=== PATIENT | male | born 1930 | race Caucasian/White ===

== ENCOUNTER → 2018-06-29 | Outpatient (CLI) | payer MEDICARE ==
[2018-06-29 13:02] LABS: HCT 39.5 % (39.0-53.0); HGB 13.1 gm/dL (13.0-17.5); MCH 28.6 pg (25.0-35.0); MCHC 33.2 g/dL (31.0-37.0); MCV 86.3 fL (80.0-100.0); Mean Platelet Volume 7.8; Platelet Count 169 k/uL (150-450); RBC 4.58 m/uL (4.30-5.90); RDW 13.3 % (11.5-15.5); WBC 7.1 k/uL (3.8-10.6)
[2018-06-29 13:37] LABS: Potassium 4.3 mmol/L (3.5-5.1)
== END | disposition home or self-care (01) ==
LOC: LABPAT 12:44
PROVIDERS: ATTEND Internal Medicine Interventional Cardiology
DX: Z01.812 Encounter for preprocedural laboratory examination (principal)
CPT/HCPCS: 36415; 80051; 82565; 84520; 85027

== ENCOUNTER 2018-07-11 07:26 | Day surgery (SDC) | payer MEDICARE ==
[~2018-07-11 07:26] MED LIST: ALPRAZolam 0.25 MG TAB PO PRN; ALPRAZolam 0.5 MG TAB PO PRN; ASPIRIN 325 MG TAB PO ONE; ATORVASTATIN 80 MG TAB PO ONE; NITROGLYCERIN SL TABS 0.4 MG TAB SUBLINGUAL PRN; SODIUM CHLORIDE 0.9% 1,000 ML in EMPTY BAG 1 BAG IV ONE
[2018-07-11 08:04] VITALS: TEMP 97.5
[2018-07-11] MEDS ORDERED: fentaNYL (PF) 50 MCG/ML 2 ML AMP ONE (08:25)
[2018-07-11] MEDS ORDERED: MIDAZOLAM 2 MG/2 ML VIAL ONE (08:25)
[2018-07-11] MEDS ORDERED: BENZOCAINE SPRAY 1 CAN MUCOUS MEM ONE ×2 (08:35→08:37)
[2018-07-11] MEDS ORDERED: MIDAZOLAM 2 MG/2 ML VIAL IVP ONE ×2 (08:40→08:42)
[2018-07-11] MEDS ORDERED: fentaNYL (PF) 50 MCG/ML 2 ML AMP IVP ONE (08:41)
[2018-07-11 08:43] VITALS: RESP 18
[2018-07-11] MEDS ORDERED: LIDOCAINE 1% INJ 10MG/ML (20 ML MDV) ONE (09:09)
[2018-07-11] MEDS ORDERED: LIDOCAINE 1% INJ 10MG/ML (20 ML MDV) SQ ONE (09:25)
--- NOTE | 2018-07-11 09:27 | ECHOT ---
TRANSESOPHAGEAL ECHOCARDIOGRAM DATE OF SERVICE: July 11, 2018 PERFORMING PHYSICIAN: Slim Copeland MD, tire builder. PROCEDURE PERFORMED: Transesophageal echocardiogram. INDICATION: This is a pleasant 88-year-old gentleman who was diagnosed with severe aortic stenosis. The transesophageal echocardiogram is for more clarification of the severity of the aortic stenosis as well as aortic regurgitation. COMPLICATION: None. LEVEL OF SEDATION: Moderate with sedation length of 10 minutes. PROCEDURE DESCRIPTION: After obtaining an informed consent, explaining the procedure, benefits, risks, complications and alternatives, the patient was brought to the transesophageal echocardiogram suite. A pulse oximetry and heart rate monitors were attached to the patient prior to the procedure. The patient's throat was sprayed using lidocaine locally. Following that, the patient was turned into left lateral position. A bite guard was placed and the patient was then sedated with the above doses of Versed and fentanyl in divided doses. Following that, the transesophageal echocardiogram probe was advanced through the bite guard into the mid esophagus where 2-D echocardiogram images as well as color Doppler images of various cardiac structures were obtained. We evaluated the interatrial septum using 2-D echocardiogram, color Doppler, and contrast study. The procedure was completed. There were no complications. FINDINGS: The left ventricular dimension and systolic function appeared to be within normal limits. The ejection fraction appeared to be in the range of 55% to 60% with mild to moderate concentric LVH. The right ventricle appeared to be of normal size and function. The left atrium and right atrium are moderately dilated. The aortic valve is trileaflet valve and appeared to be very thickened and calcified with evidence of severe aortic sclerosis as well as severe aortic stenosis with an aortic valve area by planimetry of 0.7 centimeters square as well as mean gradient of 40 mmHg. The peak gradient was 56 mmHg. The gradients were obtained transgastric. The mitral valve appeared to be also thickened and calcified with evidence of moderate mitral insufficiency. There was mild tricuspid regurgitation seen. Mild pulmonic insufficiency seen as well. The interatrial septum appeared to be intact without any evidence of shunt. The left atrial appendage appeared to be without any evidence of thrombus as well. CONCLUSION: 1. Trileaflet aortic valve with evidence of severe aortic sclerosis as well as severe aortic stenosis and moderate to severe aortic insufficiency. The aortic stenosis severity was confirmed by planimetry as well as by gradient. The mean gradient across the aortic valve was 40 mmHg. 2. Thickened mitral valve leaflets with evidence of moderate mitral insufficiency. The mitral regurgitation jet is quite central. 3. Normal left ventricular dimension and systolic function with an ejection fraction of 55%. There was mild concentric left ventricular hypertrophy. 4. Normal right ventricular dimension and systolic function as well. 5. Moderate biatrial enlargement. 6. Normal tricuspid valve and pulmonic valve. 7. Intact interatrial septum without any evidence of shunt. 8. Normal left atrial appendage without any evidence of thrombus. 9. No evidence of pericardial effusion. MMODL / IJN: [id number] /
[2018-07-11] MEDS ORDERED: IOPAMIDOL-370 125ML BTL INJ ONE (09:52)
[2018-07-11] MEDS ORDERED: RX INFO: IV CONTRAST WAS GIVEN 1 EACH MISC MISCELLANE PRN (10:06)
[2018-07-11] MEDS ORDERED: SODIUM CHLORIDE 0.9% 1,000 ML IV SCH (10:15)
--- NOTE | 2018-07-11 10:48 | CC ---
CARDIAC CATHETERIZATION REPORT DATE OF SERVICE: 07/11/2018 PERFORMING PHYSICIAN: Slim Copeland MD, [employer]. PROCEDURE PERFORMED: 1. Right heart catheterization. 2. Selective right and left coronary angiogram. INDICATION: This is a pleasant 88-year-old gentleman with known history of aortic stenosis, who was experiencing recently symptoms of feeling tired and fatigued as well as shortness of breath with exertion. He underwent a transthoracic echocardiogram and that showed evidence of severe aortic stenosis. The ROMAN earlier today revealed severe aortic stenosis. He was brought today to undergo right and left heart catheterization. COMPLICATION: None. LEVEL OF SEDATION: Moderate with sedation length of 37 minutes. APPROACH: Right common femoral vein and right common femoral artery. PROCEDURE DESCRIPTION: After obtaining an informed consent, the patient was brought to the cardiac labor relations teacher. The right common femoral vein was cannulated using micropuncture technique, the micropuncture wire passed easily, then I placed an 8-[place] sheath in the femoral vein. After that, the right common femoral artery was cannulated using micropuncture technique, the micropuncture wire passed easily, then I placed a 6-[place] sheath in the right common femoral artery. After that, I did a right heart catheterization using 6- [place] Arabian swan catheter which was advanced all the way to the wedge position, then I did a pullback across the right heart chambers. I did a cardiac output using thermodilution as well. I did not cross the aortic valve just because of the heavily calcified aortic valve as well as known severe aortic stenosis by gradient as well as by area. After that, I did selective right and left coronary angiogram using JR4 and JL4 catheters. The procedure was completed without any complication. HEMODYNAMICS: 1. The pulmonary capillary wedge pressure was 22 mmHg. 2. Pulmonary artery pressures were as follows: systolic 23, diastolic 16 and mean of 19 mmHg. 3. Right ventricular pressure is as follows: systolic 24 and end-diastolic of 9 mmHg. 4. The aortic pressures were as follows systolic 138, diastolic 54, and mean of 81 mmHg. The cardiac output was 4.9 L/minute. SELECTIVE CORONARY ANGIOGRAM: 1. The right coronary artery is a small to medium caliber vessel. It is a nondominant vessel. It is seems to be angiographically normal. 2. The left main is a large left main and seems to be angiographically normal. It bifurcates into left circumflex and left anterior descending artery. 3. The left circumflex is a large caliber vessel. It is a dominant vessel. The proximal circumflex appeared to have mild disease only. The mid circumflex appears to have mild disease only and gives rise into a large OM branch which seems to be angiographically normal. The left circumflex distally bifurcates into PDA and PLV branches both are angiographically normal. 4. The LAD, the proximal LAD appeared to be angiographically normal. It gives rise into the first and second diagonal branch, both are angiographically normal. The mid LAD is normal as well and gives rise into a third diagonal branch which seems to be angiographically normal and the LAD distally is angiographically normal. The LAD does reach and wrap around the apex. CONCLUSION: 1. Normal right heart pressures. 2. Normal cardiac output. 3. Mild nonobstructive coronary artery disease. 4. Dominant left coronary system. POST-PROCEDURE MANAGEMENT: Evaluate the patient to have aortic valve replacement either through SAVR or TAVR. PANCHO / CURTISN: [id number] /
--- NOTE | 2018-07-11 10:48 | LTR ---
DATE OF SERVICE: 07/11/2018 RE: Albaro Hall Dear Dr. Julien; Mr. Albaro Hall underwent today a transesophageal echocardiogram as well as right and left heart catheterization for further evaluation of aortic stenosis. The transesophageal echocardiogram revealed severe aortic stenosis by area as well as by gradient. The heart catheterization revealed mild nonobstructive coronary artery disease. Having stated that, I am going to discharge the patient home and follow up with him in the office next week to discuss with him the aortic valve replacement either surgically or percutaneously. Again, thank you for allowing me to participate in his care and please do not hesitate to call if you have any question or concern. Sincerely, Slim Copeland MD MMRODNEYL / CURTISN: [id number] /
[2018-07-11 10:49] VITALS: BMI 24.6
[2018-07-11 13:24] VITALS: BP 151/65; PULSE 52
== END 2018-07-11 15:55 | disposition home or self-care (01) ==
LOC: CATHCVL 07:26 → 3OBS 08:57 → CATHCVL 15:55
PROVIDERS: ATTEND Internal Medicine Interventional Cardiology
DX: I08.3 Combined rheumatic disorders of mitral, aortic and tricuspid valves (principal); I25.10 Atherosclerotic heart disease of native coronary artery without angina pectoris; Z87.891 Personal history of nicotine dependence; Z79.82 Long term (current) use of aspirin; Z79.899 Other long term (current) drug therapy
CPT/HCPCS: 93312; 93320; 93325; 93456; C1769 ×4; C1894 ×2; C1760; J2250; J2001; Q9967

== ENCOUNTER 2018-10-24 09:19 | Emergency (ER) | payer MEDICARE ==
[2018-10-24 09:26] VITALS: RESP 18; TEMP 97.4
[2018-10-24] MEDS ORDERED: fentaNYL (PF) 50 MCG/ML 2 ML AMP IV STA (09:41)
--- NOTE | 2018-10-24 10:17 | ED ---
General Adult HPI <Jake Miller - Last Filed: 10/24/18 11:22> - General Source: patient, RN notes reviewed Mode of arrival: EMS Limitations: no limitations <Gasper Miranda - Last Filed: 10/24/18 11:32> - General Chief complaint: Fall Stated complaint: fall Time Seen by Provider: 10/24/18 09:29 - History of Present Illness Initial comments: Patient's an 88-year-old male presenting to the emergency room today by EMS, the chief complaint of a fall that occurred just prior to arrival. Patient states that he stepped out of of his house and was icy slipped falling twisting his right leg behind him. He does admit to pain into the right hip and right femur area. Patient states pain is worse with any movements. Patient was given 50 g of fentanyl which he has had some relief. Patient states that there was no head injury or loss conscious. He is not on any blood thinners. Patient denies any recent fever, chills, shortness of breath, chest pain, back pain, abdominal pain, nausea or vomiting, dysuria or hematuria, constipation or diarrhea, headaches or visual changes, or any other complaints. (Gasper Miranda) - Related Data Home Medications Medication Instructions Recorded Confirmed Aspirin 81 mg PO DAILY 02/25/15 10/24/18 Atorvastatin [Lipitor] 10 mg PO DAILY 02/25/15 10/24/18 Glucosam/Demarcus-Msm1/C/Ralph/Bosw 1 tab PO DAILY 02/25/15 10/24/18 [Glucosamine-Chondroitin Tablet] Loratadine [Claritin] 10 mg PO DAILY 02/25/15 10/24/18 Multivitamins, Thera [Multivitamin 1 tab PO DAILY 02/25/15 10/24/18 (formulary)] Gabapentin [Neurontin] 300 mg PO BID 10/24/18 10/24/18 Allergies Allergy/AdvReac Type Severity Reaction Status Date / Time morphine AdvReac Hallucinati Verified 10/24/18 09:50 ons Review of Systems ROS Other: All systems not noted in ROS Statement are negative. <Jake Miller - Last Filed: 10/24/18 11:22> ROS Other: All systems not noted in ROS Statement are negative. <Gasper Miranda - Last Filed: 10/24/18 11:32> ROS Statement: Those systems with pertinent positive or pertinent negative responses have been documented in the HPI. Past Medical History Past Medical History: CVA/TIA, Osteoarthritis (OA) Additional Past Medical History / Comment(s): HEART MURMUR, CVA RT EYE, SOB History of Any Multi-Drug Resistant Organisms: None Reported Past Surgical History: Appendectomy, Heart Catheterization, Joint Replacement, Orthopedic Surgery, Tonsillectomy Additional Past Surgical History / Comment(s): RT HIP REPLACEMENT,RT KNEE REPLACEMENT, EDISON KNEE ARTHROSCOPY,HAND SURGERY Past Anesthesia/Blood Transfusion Reactions: Motion Sickness Additional Past Anesthesia/Blood Transfusion Reaction / Comment(s): HAS HAD HARD TIME COMING OUT OF ANESTHESIA Past Psychological History: No Psychological Hx Reported Smoking Status: Former smoker Past Alcohol Use History: None Reported Past Drug Use History: None Reported - Past Family History Sister(s) Family Medical History: Cancer Additional Family Medical History / Comment(s): BREAST Brother(s) Family Medical History: Cancer <Gasper Miranda - Last Filed: 10/24/18 11:32> General Exam <Jake Miller - Last Filed: 10/24/18 11:22> Limitations: no limitations <MirandaGasper - Last Filed: 10/24/18 11:32> - General Exam Comments Initial Comments: General: The patient is awake and alert, in no distress, and does not appear acutely ill. Eye: There is normal conjunctiva bilaterally. No signs of icterus. Ears, nos Pupils are equal, round and reactive to light, extra-ocular movements are intact. No nystagmus. e, mouth and throat: There are moist mucous membranes and no oral lesions. Neck: The neck is supple. Cardiovascular: There is a regular rate and rhythm. No murmur, rub or gallop is appreciated. Respiratory: Lungs are clear to auscultation, respirations are non-labored, breath sounds are equal. No wheezes, stridor, rales, or rhonchi. Musculoskeletal: Patient does have shortening and rotation to the right leg. Mild tenderness over the right hip with increased tenderness midshaft of the right femur. Pedal pulses 2+. Sensations are intact.. Neurological: A&O x 3. CN II-XII intact, There are no obvious motor or sensory deficits. Coordination appears grossly intact. Speech is normal. Skin: Skin is warm and dry and no rashes or lesions are noted. Psychiatric: Cooperative, appropriate mood & affect, normal judgment. (Gasper Miranda) Course <Jake Miller - Last Filed: 10/24/18 11:22> <Gasper Miranda - Last Filed: 10/24/18 11:32> Vital Signs 10/24/18 10/24/18 10/24/18 09:24 10:26 11:04 Temperature 97.4 F L Pulse Rate 61 56 L 66 Respiratory 18 18 18 Rate Blood Pressure 116/93 106/58 136/57 O2 Sat by Pulse 98 96 97 Oximetry - Reevaluation(s) Reevaluation #1: 10/24/18 11:22 PA supervision: I proceeded [id number] evaluation the patient did discuss the findings with him and his significant other. Patient does have a comminuted displaced fracture through the distal diaphysis of the right distal femur. I did discuss the findings with him as well as with [facility] the fracture will require a trauma cleaning specialist. The patient did request transfer to [facility]. I did discuss the findings with Dr. Moore who is agreed to set the patient transfer ER to ER. The patient will be placed in a posterior splint prior to the transfer. I do agree with the assessment and plan. (Jake Miller) Procedures <Jake Miller - Last Filed: 10/24/18 11:22> <Gasper Miranda - Last Filed: 10/24/18 11:32> - Procedures Initial comment: Patient has been splinted in a posterior long leg splint on the right. Neurovascular rechecked and intact. (Gapser Miranda) Medical Decision Making - Lab Data Result diagrams: 10/24/18 11:04 <Gasper Miranda - Last Filed: 10/24/18 11:32> - Lab Data Lab Results 10/24/18 Range/Units 11:04 WBC 13.9 H (3.8-10.6) k/uL RBC 4.26 L (4.30-5.90) m/uL Hgb 12.4 L (13.0-17.5) gm/dL Hct 36.8 L (39.0-53.0) % MCV 86.4 (80.0-100.0) fL MCH 29.2 (25.0-35.0) pg MCHC 33.8 (31.0-37.0) g/dL RDW 13.2 (11.5-15.5) % Plt Count 170 (150-450) k/uL Neutrophils % 80 % Lymphocytes % 14 % Monocytes % 4 % Eosinophils % 1 % Basophils % 0 % Neutrophils # 11.1 H (1.3-7.7) k/uL Lymphocytes # 1.9 (1.0-4.8) k/uL Monocytes # 0.5 (0-1.0) k/uL Eosinophils # 0.1 (0-0.7) k/uL Basophils # 0.1 (0-0.2) k/uL Disposition <Jake Miller - Last Filed: 10/24/18 11:22> Is patient prescribed a controlled substance at d/c from ED?: No Time of Disposition: 11:30 ([facility]) - Out of Hospital Transfer - Req. Specs Out of Hospital Transfer - Requested Specifics: Other Emergency Center ([facility]) <Gasper Miranda - Last Filed: 10/24/18 11:32> Clinical Impression: Femur fracture, right Disposition: OTHER INSTITUTION NOT DEFINED Condition: Stable Referrals: Dino Julien MD [Primary Care Provider] - 1-2 days
--- NOTE | 2018-10-24 10:28 | XR ---
EXAMINATION TYPE: XR chest 1V DATE OF EXAM: 10/24/2018 COMPARISON: 02/16/2015 INDICATION: Pain following fall TECHNIQUE: Single frontal view of the chest is obtained. FINDINGS: The heart size is normal. The pulmonary vasculature is normal. The lungs are clear. No pneumothorax is evident. No displaced rib fractures are evident. Degree of inspiration is somewhat limited. IMPRESSION: 1. No acute posttraumatic changes.
--- NOTE | 2018-10-24 10:29 | XR ---
EXAMINATION TYPE: XR Hip Complete RT, XR femur RT DATE OF EXAM: 10/24/2018 CLINICAL HISTORY: Slip and fall injury with pain. TECHNIQUE: AP and frogleg views of the right hip are obtained. 2 views right femur are acquired. COMPARISON: Right hip x-ray November 22, 2013. FINDINGS: There is no acute fracture/dislocation evident in the right hip. Metallic hardware from hi p arthroplasty is redemonstrated and stable in position. The overlying soft tissue appears unremarka ble. Images of right femur show comminuted displaced fracture through distal diaphysis with impaction by r oughly 7- 8 cm and anterior displacement roughly 5 cm with medial angulation of distal fracture fragm ents, a triangular-shaped fragment is noted. Metallic hardware from right knee arthroplasty appears t o be just inferior to the fracture as it approaches the anterior aspect. Mild to moderate soft tissue swelling is present. Vascular calcification posteriorly is noted. IMPRESSION: There is acute comminuted displaced fracture through distal diaphysis of right proximal femur as detailed above. (Initial encounter closed type post traumatic fracture)
[2018-10-24 11:24] LABS: Basophils # (A) 0.1 k/uL (0-0.2); Basophils % (A) 0 %; Eosinophils # (A) 0.1 k/uL (0-0.7); Eosinophils % (A) 1 %; HCT 36.8 % (39.0-53.0); HGB 12.4 gm/dL (13.0-17.5); Lymphocytes # (A) 1.9 k/uL (1.0-4.8); Lymphocytes % (A) 14 %; MCH 29.2 pg (25.0-35.0); MCHC 33.8 g/dL (31.0-37.0); MCV 86.4 fL (80.0-100.0); Mean Platelet Volume 7.7; Monocytes # (A) 0.5 k/uL (0-1.0); Monocytes % (A) 4 %; Neutrophils # (A) 11.1 k/uL (1.3-7.7); Neutrophils % (A) 80 %; Platelet Count 170 k/uL (150-450); RBC 4.26 m/uL (4.30-5.90); RDW 13.2 % (11.5-15.5); WBC 13.9 k/uL (3.8-10.6)
[2018-10-24 11:32] LABS: Calcium 9.3 mg/dL (8.4-10.2); Potassium 4.5 mmol/L (3.5-5.1); Total Bilirubin 0.6 mg/dL (0.2-1.3); Total Protein 6.9 g/dL (6.3-8.2)
[2018-10-24] MEDS ORDERED: fentaNYL (PF) 50 MCG/ML 2 ML AMP IVP STA (11:34)
[2018-10-24 11:35] LABS: INR 0.9 (<1.2); Partial Thromboplastin Time 22.6 sec (22.0-30.0); Prothrombin Time 10.1 sec (9.0-12.0)
[2018-10-24] MEDS ORDERED: LORazepam 2 MG/ML INJ IV STA (11:36)
[2018-10-24 12:16] VITALS: BP 123/54; PULSE 68
== END 2018-10-24 12:41 | disposition other institution (70) ==
LOC: EC 09:19
DX: T84.010A Broken internal right hip prosthesis, initial encounter (principal); S72.401A Unspecified fracture of lower end of right femur, initial encounter for closed fracture; M19.90 Unspecified osteoarthritis, unspecified site; Z86.73 Personal history of transient ischemic attack (TIA), and cerebral infarction without residual deficits; Z95.818 Presence of other cardiac implants and grafts; Z96.641 Presence of right artificial hip joint; Z96.651 Presence of right artificial knee joint; Z87.891 Personal history of nicotine dependence; Z79.82 Long term (current) use of aspirin; Z79.899 Other long term (current) drug therapy; Z88.5 Allergy status to narcotic agent; W00.0XXA Fall on same level due to ice and snow, initial encounter
CPT/HCPCS: 36415; 93005; 80053; 85025; 85610; 85730; 73502; 73552; 71045; 99285; 29505; 96374; 96375 ×2; J2060; J3010

== ENCOUNTER 2020-05-08 11:41 | Inpatient (IN) | payer MEDICARE ==
[2020-05-08] MEDS ORDERED: SODIUM CHLORIDE 0.9% 500 ML 500 ML IV STA (12:25)
[2020-05-08] MEDS ORDERED: ONDANSETRON 4 MG/2 ML VIAL IVP STA (12:26)
--- NOTE | 2020-05-08 12:31 | ED ---
Dizziness HPI - General Chief Complaint: Dizziness Stated Complaint: nausea Time Seen by Provider: 05/08/20 11:50 Source: patient Mode of arrival: ambulatory Limitations: physical limitation - History of Present Illness Initial Comments: 89-year-old male with history of CVA/TIA who presents emergency room in with reported nausea and dizziness for the past 2 weeks. Patient reports progressive nature of his symptoms. Patient states he was force himself to eat because he is significantly nauseated. He says primary care physician in regards to this w as placed on Zofran. Has been taking it every 8 hours without improvement. Patient denies any hematemesis or vomiting. Does admit to right upper quadrant abdominal pain. Denies dysuria, hematuria or difficulty voiding. No diarrhea, constipation, black or bloody stools. Denies fevers or chills. No chest pain or shortness of breath. Patient notes due to the prolonged nature of his symptoms is made him feel very weak and lightheaded. Patient denies room spinning feels as if he cannot keep his balance. Has been ambulating with 2 canes. Patient previously used a cane because he has a history of a right hip replacement and has had the police with evaluation however he is now using 2 can es because of this progressive weakness. Denies any worsening unilateral weakness. Reports mild headache and some worsening vision changes. Denies chest pain or shortness of breath. No ripping or tearing sensation to his back. No recent medication changes other than the Zofran. No other alleviating, precipitating or modifying factors - Related Data Home Medications Medication Instructions Recorded Confirmed Aspirin 81 mg PO DAILY 02/25/15 05/08/20 Atorvastatin [Lipitor] 10 mg PO DAILY 02/25/15 05/08/20 Glucosam/Demarcus-Msm1/C/Ralph/Bosw 1 tab PO DAILY 02/25/15 05/08/20 [Glucosamine-Chondroitin Tablet] Loratadine [Claritin] 10 mg PO DAILY 02/25/15 05/08/20 Multivitamins, Thera [Multivitamin 1 tab PO DAILY 02/25/15 05/08/20 (formulary)] Gabapentin [Neurontin] 300 mg PO BID 10/24/18 05/08/20 Clopidogrel [Plavix] 75 mg PO DAILY 05/08/20 05/08/20 Donepezil [Aricept] 10 mg PO HS 05/08/20 05/08/20 Ondansetron HCl [Zofran] 4 mg PO Q8H PRN 05/08/20 05/08/20 Allergies Allergy/AdvReac Type Severity Reaction Status Date / Time morphine AdvReac Hallucinati Verified 05/08/20 12:40 ons Review of Systems ROS Statement: Those systems with pertinent positive or pertinent negative responses have been documented in the HPI. ROS Other: All systems not noted in ROS Statement are negative. Past Medical History Past Medical History: CVA/TIA, Osteoarthritis (OA) Additional Past Medical History / Comment(s): HEART MURMUR, CVA RT EYE, SOB chronic back pain History of Any Multi-Drug Resistant Organisms: None Reported Past Surgical History: Appendectomy, Heart Catheterization, Joint Replacement, Orthopedic Surgery, Tonsillectomy Additional Past Surgical History / Comment(s): RT HIP REPLACEMENT,RT KNEE REPLACEMENT, EDISON KNEE ARTHROSCOPY,HAND SURGERY Past Anesthesia/Blood Transfusion Reactions: Motion Sickness Additional Past Anesthesia/Blood Transfusion Reaction / Comment(s): HAS HAD HARD TIME COMING OUT OF ANESTHESIA Past Psychological History: No Psychological Hx Reported Smoking Status: Former smoker Past Alcohol Use History: None Reported Past Drug Use History: None Reported - Past Family History Sister(s) Family Medical History: Cancer Additional Family Medical History / Comment(s): BREAST Brother(s) Family Medical History: Cancer Mother Family Medical History: Respiratory Disorder Additional Family Medical History / Comment(s): Mother from a lung fungal infection at the age of 74 yrs. Father Family Medical History: Respiratory Disorder Additional Family Medical History / Comment(s): Father was a smoker and had work related fume exposure. He had a stomach ulcer. General Exam Limitations: physical limitation General appearance: alert, in no apparent distress Head exam: Present: atraumatic, normocephalic, normal inspection Eye exam: Present: normal appearance, PERRL, EOMI. Absent: scleral icterus, conjunctival injection, periorbital swelling ENT exam: Present: normal exam, mucous membranes moist Neck exam: Present: normal inspection. Absent: tenderness, meningismus, lymphadenopathy Respiratory exam: Present: normal lung sounds bilaterally. Absent: respiratory distress, wheezes, rales, rhonchi, stridor Cardiovascular Exam: Present: regular rate, normal rhythm, normal heart sounds. Absent: systolic murmur, diastolic murmur, rubs, gallop, clicks GI/Abdominal exam: Present: soft, normal bowel sounds. Absent: distended, tenderness, guarding, rebound, rigid Extremities exam: Present: normal inspection, full ROM, normal capillary refill. Absent: tenderness, pedal edema, joint swelling, calf tenderness Back exam: Present: normal inspection Neurological exam: Present: alert, oriented X3, CN II-XII intact Psychiatric exam: Present: normal affect, normal mood Skin exam: Present: warm, dry, intact, normal color. Absent: rash Course Vital Signs 05/08/20 05/08/20 05/08/20 11:49 12:30 13:30 Temperature 98.1 F Pulse Rate 60 66 60 Respiratory 18 24 20 Rate Blood Pressure 138/82 142/91 130/98 O2 Sat by Pulse 99 Oximetry 05/08/20 15:50 Temperature 98.7 F Pulse Rate 56 L Respiratory 19 Rate Blood Pressure 150/97 O2 Sat by Pulse 95 Oximetry - Reevaluation(s) Reevaluation #1: 05/08/20 14:[address] Darden who agreed to admit the patient with GI consult EKG Findings - EKG Comments: EKG Findings:: EKG demonstrates a sinus bradycardia with a ventricular rate of 52. PA interval 188. QRS 152. QTC 448. Left bundle branch block presents. Negative for sgarbossa criteria. EKG from October 2018 does not demonstrate left bundle-branch block Medical Decision Making - Medical Decision Making Upon arrival the patient is placed into room 1. A thorough history and physical exam was performed. No signs of nystagmus or ataxia. Patient is up to continuous pulse ox and cardiac monitoring. NIH stroke scaling is 0. Twelve- lead EKG is performed which demonstrates a sinus bradycardia with left bundle branch block. No signs of high degree block. Patient was given a 500 mL bolus of normal saline and laboratory studies were conducted. Lab studies are unremarkable. Chest x-ray demonstrates no evidence of acute cardiopulmonary process. Patient also went for a CT of his head and cervical spine as well as abdomen and pelvis. CT of his abdomen and pelvis demonstrates bibasilar atelectasis. Diverticulosis without acute diverticulitis. Diffuse form prominence of the mid abdominal aorta. CT of the patient's head and cervical spine demonstrates minimal. Ventricular white matter ischemic changes. CT of the neck demonstratesuncovertebral changes with uncovertebral joint hypertrophy and foraminal stenosis. The patient is reevaluated and reports improvement in his symptoms at this time. Recommend hospital admission for GI consultation in order to trend the patient's troponins because his new onset bundle branch block. Patient has significant debility at home and is unable to drive or ambulate due to his new onset symptoms. Patient agreed to this. Discussed case with Dr. Darden who agreed to admission. Patient is currently awaiting a bed on the floor - Lab Data Result diagrams: 05/10/20 09:27 05/10/20 09:27 Lab Results 05/08/20 05/08/20 05/08/20 Range/Units 12:00 12:00 12:00 WBC 9.0 (3.8-10.6) k/uL RBC 4.80 (4.30-5.90) m/uL Hgb 13.4 (13.0-17.5) gm/dL Hct 41.9 (39.0-53.0) % MCV 87.3 (80.0-100.0) fL MCH 27.9 (25.0-35.0) pg MCHC 32.0 (31.0-37.0) g/dL RDW 12.6 (11.5-15.5) % Plt Count 175 (150-450) k/uL Neutrophils % 68 % Lymphocytes % 24 % Monocytes % 5 % Eosinophils % 2 % Basophils % 1 % Neutrophils # 6.1 (1.3-7.7) k/uL Lymphocytes # 2.1 (1.0-4.8) k/uL Monocytes # 0.4 (0-1.0) k/uL Eosinophils # 0.2 (0-0.7) k/uL Basophils # 0.1 (0-0.2) k/uL PT 10.2 (9.0-12.0) sec INR 1.0 (<1.2) Sodium 138 (137-145) mmol/L Potassium 4.2 (3.5-5.1) mmol/L Chloride 102 (98-107) mmol/L Carbon Dioxide 28 (22-30) mmol/L Anion Gap 8 mmol/L BUN 23 H (9-20) mg/dL Creatinine 0.88 (0.66-1.25) mg/dL Est GFR (CKD-EPI)AfAm 90 (>60 ml/min/1.73 sqM) Est GFR (CKD-EPI)NonAf 77 (>60 ml/min/1.73 sqM) Glucose 113 H (74-99) mg/dL Plasma Lactic Acid Dirk (0.7-2.0) mmol/L Calcium 9.5 (8.4-10.2) mg/dL Total Bilirubin 0.8 (0.2-1.3) mg/dL AST 31 (17-59) U/L ALT 21 (4-49) U/L Alkaline Phosphatase 87 (38-126) U/L Troponin I (0.000-0.034) ng/mL Total Protein 7.1 (6.3-8.2) g/dL Albumin 4.4 (3.5-5.0) g/dL Lipase 43 (23-300) U/L TSH 2.880 (0.465-4.680) mIU/L Urine Color Urine Appearance (Clear) Urine pH (5.0-8.0) Ur Specific Ivins (1.001-1.035) Urine Protein (Negative) Urine Glucose (UA) (Negative) Urine Ketones (Negative) Urine Blood (Negative) Urine Nitrite (Negative) Urine Bilirubin (Negative) Urine Urobilinogen (<2.0) mg/dL Ur Leukocyte Esterase (Negative) 05/08/20 05/08/20 05/08/20 Range/Units 12:00 12:00 13:08 WBC (3.8-10.6) k/uL RBC (4.30-5.90) m/uL Hgb (13.0-17.5) gm/dL Hct (39.0-53.0) % MCV (80.0-100.0) fL MCH (25.0-35.0) pg MCHC (31.0-37.0) g/dL RDW (11.5-15.5) % Plt Count (150-450) k/uL Neutrophils % % Lymphocytes % % Monocytes % % Eosinophils % % Basophils % % Neutrophils # (1.3-7.7) k/uL Lymphocytes # (1.0-4.8) k/uL Monocytes # (0-1.0) k/uL Eosinophils # (0-0.7) k/uL Basophils # (0-0.2) k/uL PT (9.0-12.0) sec INR (<1.2) Sodium (137-145) mmol/L Potassium (3.5-5.1) mmol/L Chloride (98-107) mmol/L Carbon Dioxide (22-30) mmol/L Anion Gap mmol/L BUN (9-20) mg/dL Creatinine (0.66-1.25) mg/dL Est GFR (CKD-EPI)AfAm (>60 ml/min/1.73 sqM) Est GFR (CKD-EPI)NonAf (>60 ml/min/1.73 sqM) Glucose (74-99) mg/dL Plasma Lactic Acid Dirk 1.5 (0.7-2.0) mmol/L Calcium (8.4-10.2) mg/dL Total Bilirubin (0.2-1.3) mg/dL AST (17-59) U/L ALT (4-49) U/L Alkaline Phosphatase (38-126) U/L Troponin I <0.012 (0.000-0.034) ng/mL Total Protein (6.3-8.2) g/dL Albumin (3.5-5.0) g/dL Lipase (23-300) U/L TSH (0.465-4.680) mIU/L Urine Color Yellow Urine Appearance Clear (Clear) Urine pH 6.5 (5.0-8.0) Ur Specific Ivins 1.012 (1.001-1.035) Urine Protein Negative (Negative) Urine Glucose (UA) Negative (Negative) Urine Ketones Negative (Negative) Urine Blood Negative (Negative) Urine Nitrite Negative (Negative) Urine Bilirubin Negative (Negative) Urine Urobilinogen <2.0 (<2.0) mg/dL Ur Leukocyte Esterase Negative (Negative) 05/08/20 05/08/20 05/09/20 Range/Units 15:18 18:05 07:27 WBC 6.3 (3.8-10.6) k/uL RBC 4.27 L (4.30-5.90) m/uL Hgb 12.1 L (13.0-17.5) gm/dL Hct 37.1 L (39.0-53.0) % MCV 86.9 (80.0-100.0) fL MCH 28.3 (25.0-35.0) pg MCHC 32.6 (31.0-37.0) g/dL RDW 12.6 (11.5-15.5) % Plt Count 143 L (150-450) k/uL Neutrophils % 62 % Lymphocytes % 27 % Monocytes % 5 % Eosinophils % 3 % Basophils % 1 % Neutrophils # 3.9 (1.3-7.7) k/uL Lymphocytes # 1.7 (1.0-4.8) k/uL Monocytes # 0.3 (0-1.0) k/uL Eosinophils # 0.2 (0-0.7) k/uL Basophils # 0.1 (0-0.2) k/uL PT (9.0-12.0) sec INR (<1.2) Sodium (137-145) mmol/L Potassium (3.5-5.1) mmol/L Chloride (98-107) mmol/L Carbon Dioxide (22-30) mmol/L Anion Gap mmol/L BUN (9-20) mg/dL Creatinine (0.66-1.25) mg/dL Est GFR (CKD-EPI)AfAm (>60 ml/min/1.73 sqM) Est GFR (CKD-EPI)NonAf (>60 ml/min/1.73 sqM) Glucose (74-99) mg/dL Plasma Lactic Acid Dirk (0.7-2.0) mmol/L Calcium (8.4-10.2) mg/dL Total Bilirubin (0.2-1.3) mg/dL AST (17-59) U/L ALT (4-49) U/L Alkaline Phosphatase (38-126) U/L Troponin I 0.013 0.015 (0.000-0.034) ng/mL Total Protein (6.3-8.2) g/dL Albumin (3.5-5.0) g/dL Lipase (23-300) U/L TSH (0.465-4.680) mIU/L Urine Color Urine Appearance (Clear) Urine pH (5.0-8.0) Ur Specific Ivins (1.001-1.035) Urine Protein (Negative) Urine Glucose (UA) (Negative) Urine Ketones (Negative) Urine Blood (Negative) Urine Nitrite (Negative) Urine Bilirubin (Negative) Urine Urobilinogen (<2.0) mg/dL Ur Leukocyte Esterase (Negative) 05/09/20 Range/Units 07:27 WBC (3.8-10.6) k/uL RBC (4.30-5.90) m/uL Hgb (13.0-17.5) gm/dL Hct (39.0-53.0) % MCV (80.0-100.0) fL MCH (25.0-35.0) pg MCHC (31.0-37.0) g/dL RDW (11.5-15.5) % Plt Count (150-450) k/uL Neutrophils % % Lymphocytes % % Monocytes % % Eosinophils % % Basophils % % Neutrophils # (1.3-7.7) k/uL Lymphocytes # (1.0-4.8) k/uL Monocytes # (0-1.0) k/uL Eosinophils # (0-0.7) k/uL Basophils # (0-0.2) k/uL PT (9.0-12.0) sec INR (<1.2) Sodium 137 (137-145) mmol/L Potassium 4.3 (3.5-5.1) mmol/L Chloride 107 (98-107) mmol/L Carbon Dioxide 27 (22-30) mmol/L Anion Gap 3 mmol/L BUN 18 (9-20) mg/dL Creatinine 0.86 (0.66-1.25) mg/dL Est GFR (CKD-EPI)AfAm >90 (>60 ml/min/1.73 sqM) Est GFR (CKD-EPI)NonAf 78 (>60 ml/min/1.73 sqM) Glucose 88 (74-99) mg/dL Plasma Lactic Acid Dirk (0.7-2.0) mmol/L Calcium 8.6 (8.4-10.2) mg/dL Total Bilirubin 0.8 (0.2-1.3) mg/dL AST 26 (17-59) U/L ALT 17 (4-49) U/L Alkaline Phosphatase 73 (38-126) U/L Troponin I (0.000-0.034) ng/mL Total Protein 5.8 L (6.3-8.2) g/dL Albumin 3.4 L (3.5-5.0) g/dL Lipase (23-300) U/L TSH (0.465-4.680) mIU/L Urine Color Urine Appearance (Clear) Urine pH (5.0-8.0) Ur Specific Ivins (1.001-1.035) Urine Protein (Negative) Urine Glucose (UA) (Negative) Urine Ketones (Negative) Urine Blood (Negative) Urine Nitrite (Negative) Urine Bilirubin (Negative) Urine Urobilinogen (<2.0) mg/dL Ur Leukocyte Esterase (Negative) Disposition Clinical Impression: Nausea, Weakness, Left bundle branch block Disposition: ADMITTED IP TO THIS [facility] Condition: Stable Is patient prescribed a controlled substance at d/c from ED?: No Time of Disposition: 14:55 Decision to Admit Reason: Admit from EC Decision Date: 05/08/20 Decision Time: 14:55
[2020-05-08 12:43] LABS: Basophils # (A) 0.1 k/uL (0-0.2); Basophils % (A) 1 %; Eosinophils # (A) 0.2 k/uL (0-0.7); Eosinophils % (A) 2 %; HCT 41.9 % (39.0-53.0); HGB 13.4 gm/dL (13.0-17.5); Lymphocytes # (A) 2.1 k/uL (1.0-4.8); Lymphocytes % (A) 24 %; MCH 27.9 pg (25.0-35.0); MCV 87.3 fL (80.0-100.0); Mean Platelet Volume 8.3; Monocytes # (A) 0.4 k/uL (0-1.0); Monocytes % (A) 5 %; Neutrophils # (A) 6.1 k/uL (1.3-7.7); Neutrophils % (A) 68 %; Platelet Count 175 k/uL (150-450); RDW 12.6 % (11.5-15.5)
[2020-05-08 12:56] LABS: Albumin 4.4 g/dL (3.5-5.0); Calcium 9.5 mg/dL (8.4-10.2); Potassium 4.2 mmol/L (3.5-5.1); Total Bilirubin 0.8 mg/dL (0.2-1.3); Total Protein 7.1 g/dL (6.3-8.2)
[2020-05-08 12:59] LABS: Prothrombin Time 10.2 sec (9.0-12.0)
[2020-05-08 13:22] LABS: Appearance,Urine Clear (Clear); Bilirubin,Urine Negative (Negative); Blood,Urine Negative (Negative); Color,Urine Yellow; Glucose,Urine (UA) Negative (Negative); Ketones,Urine Negative (Negative); Leukocyte Esterase,Urine Negative (Negative); Nitrite,Urine Negative (Negative); PH, Urine 6.5 (5.0-8.0); Protein,Urine Negative (Negative); Specific Gravity,Urine 1.012 (1.001-1.035); Urobilinogen,Urine <2.0 mg/dL (<2.0)
--- NOTE | 2020-05-08 13:26 | XR ---
EXAMINATION TYPE: XR chest 2V DATE OF EXAM: 05/08/2020 COMPARISON: 10/24/2018 HISTORY: Shortness of breath TECHNIQUE: Frontal and lateral views of the chest are obtained. FINDINGS: Scattered senescent parenchymal changes noted. Hyperinflation compatible with COPD. No evidence for infiltrate. No evidence for atelectasis. Heart size is stable. Mediastinal structures are stable and grossly unremarkable. No evidence for hilar prominence. Degenerative changes dorsal spine. IMPRESSION: 1. No evidence for acute pulmonary disease.
--- NOTE | 2020-05-08 14:22 | CT ---
EXAMINATION TYPE: CT brain yesica murphy DATE OF EXAM: 05/08/2020 COMPARISON: None HISTORY: HSU, dizziness CT DLP: 1419.4 mGycm, Automated exposure control for dose reduction was used. CONTRAST: Patient injected with 0 mL of Isovue 300. CT of the brain is performed utilizing 3 mm thick sections through the posterior fossa and 3 mm thick sections through the remaining calvarium. Study is performed within 24 hours of arrival to the hospital. No abnormal hyperdensity is present to suggest an acute intracranial hemorrhage. No mass lesion is evident. No acute infarcts are evident. Some minimal periventricular white matter hypodensity may be present compatible some chronic white matter ischemic changes. Ventricles and sulci are appropriate for the patient age. Paranasal sinuses and mastoid air cells within the [id number] are clear. IMPRESSIONS: 1. Minimal periventricular white matter ischemic type changes with age-related atrophy CT cervical spine. COMPARISON: None CT of the cervical spine is performed in the axial plane at 2 mm thick sections. Reconstructed image s in the coronal, and sagittal plane are reviewed on the computer. No acute fractures are evident. Vertebral body alignment is normal. There is narrowing of disc heights greatest at C5-6 and C6-7. Some minimal posterior vertebral body s purring is present C5-6. Vertebral body heights are preserved. No spinal canal stenosis is evident. I'll foraminal narrowing from uncovertebral joint hypertrophy is present C3-4. Severe right foraminal stenosis is present C4-5 from facet hypertrophy and uncovertebral joint hypertrophy. Mild foraminal narrowing from uncovertebral joint hypertrophy is present on the left at C5-6 and moderate on the rig ht. Moderate to severe bilateral foraminal stenosis is present C6-7. IMPRESSIONS: 1. Degenerative disc changes. 2. Uncovertebral joint hypertrophy and foraminal stenosis.
--- NOTE | 2020-05-08 14:26 | CT ---
EXAMINATION TYPE: CT abdomen pelvis w con DATE OF EXAM: 05/08/2020 COMPARISON: None INDICATION: pain, vomiting DLP: 1283.6 mGycm, Automated exposure control for dose reduction was used. CONTRAST: 100 mL of Isovue 300. Study performed without Oral Contrast TECHNIQUE: Axial images were obtained from above the diaphragm to the pubic rami in the axial plane a t 5 mm thick sections. Reconstructed images are reviewed on the computer in the coronal plane. FINDINGS: Limited CT sections are obtained the lung bases. There is some dependent infiltrate likely related t o atelectasis. Coronary artery calcifications present.. CT ABDOMEN: Liver: Normal Spleen: Normal Pancreas: Normal Adrenal glands: The adrenal glands are normal. Gallbladder: Normal Kidneys: No masses are evident. No hydronephrosis is present. No cysts are present. Delayed images were obtained through the kidneys, which remain unremarkable. Aorta: Vascular calcification is within the aorta. Mid abdominal aorta measures 3.4 cm in AP dimensi on. This terminates at the bifurcation and begins below the renal arteries. Inferior vena cava: Normal. CT PELVIS: Loops of bowel within the abdomen and pelvis are normal. No dilated loops of bowel are fluid-filled loops of bowel are evident. There is mild fecal debris is within the colon The studies performed wi thout oral contrast limiting bowel evaluation. A few scattered diverticuli within the sigmoid colon Appendix: Not visualized. No suspicious dilated tubular structures or inflammatory changes are eviden t. Urinary bladder: Normal. Genitourinary structures: Prostate is limited evaluation due to a right hip prosthesis causing beam h ardening artifact. Osseous structures: No suspicious lytic or sclerotic lesions. Facet degenerative changes are present L5-S1. IMPRESSIONS: 1. Bibasilar atelectasis. 2. Diverticulosis without acute diverticulitis. 3. Fusiform prominence mid abdominal aorta with an AP diameter of 3.4 cm.
[2020-05-08] MEDS ORDERED: NALOXONE 0.4 MG/ML 1 ML VIAL IV PRN (14:56)
[2020-05-08] MEDS: SODIUM CHLORIDE 0.9% 1,000 ML IV SCH (15:50)
[2020-05-08] MEDS ORDERED: ONDANSETRON 4 MG TAB PO PRN (18:08)
--- NOTE | 2020-05-08 18:21 | P.HPIM ---
History of Present Illness H&P Date: 05/08/20 Chief Complaint: Abdominal pain, nausea, severe dizziness abnormal balance and gait, possibl 89-year-old male one of my office patient with multiple medical problem known to have history of valvular heart disease post Jeanne, history of CVA and TIA, multiple fall and fracture hip in the past. Patient presented to [facility] department with his family today with symptom of severe dizziness and nausea for the last 2 weeks become progressively worse he was started on Zofran for nausea with no relief his symptoms become much worse with vomiting several times a day ended up coming to [facility] he has been complaining of abnormal balance and gait not been able to keep any food or fluid down. 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 CT of the C-spine and the brain showed white matter change with no new finding of stroke or bleed mild arthritis of the cervical spine as well. Patient was started on hydration pantoprazole Will admit to the hospital with changes his gabapentin to once a day only from twice a day see if it can help his balance gait and dizziness also we'll keep patient on pantoprazole on Zofran as needed consult gastroenterology if patient become symptomatic by tomorrow might benefit from EGD. Review of Systems CONSTITUTIONAL: Well-developed no acute respiratory distress. EYES: No icterus sclerae, no conjunctivitis. EARS, NOSE, MOUTH, THROAT, and FACE: No sore throat, lymphadenopathy, carotid bruits or deformity. RESPIRATORY: No SOB cough or wheezes. CARDIOVASCULAR: No CP, Palpitation, PND, Orthopnea, or angina. GASTROINTESTINAL: Abdominal pain nausea without vomiting no diarrhea or constipation no GI bleed at this point mild abdominal distention with slight change in bowel habit as well. GENITOURINARY: Negative for Hematuria or UTI, no kidney stones. INTEGUMENT/BREAST: Negative for any muscular injury with mild osteoarthritis.. HEMATOLOGIC/LYMPHATIC: Negative for bleed or purpura. MUSCULOSKELTAL: Negative for Myalgia or arthralgia. NEURLOGICAL: Severe dizziness with abnormal balance and gait no sign of stroke at this point. BEHAVIORAL/PSYCH: Negative. ENDOCRINE: Negative. Past Medical History Past Medical History: CVA/TIA, GERD/Reflux, Memory Impairment, Osteoarthritis (OA), Prostate Disorder Additional Past Medical History / Comment(s): CVA with R eye vision affected- resolved, aortic stenosis with valve replacement, murmur, pt states he was told at [place] during TAVR that he has "black spots" on his lungs and needs further work up but never happened d/t covid, vertigo, BPH-difficulty emptying bladder, DDD/bulging discs with bilateral leg neuropathy. History of Any Multi-Drug Resistant Organisms: None Reported Past Surgical History: Appendectomy, Cholecystectomy, Heart Catheterization, Aura nt Replacement, Orthopedic Surgery, Tonsillectomy Additional Past Surgical History / Comment(s): TAVR, TEEs, R hip hemiarthroplasty then total R hip, R femur fracture with surgical repair/hardware, total R knee arthroplasty, bilateral knee arthroscopies, R hand tendon surgery, colonoscopies/benign polypectomies, hemorrhoidectomy. Past Anesthesia/Blood Transfusion Reactions: Motion Sickness Additional Past Anesthesia/Blood Transfusion Reaction / Comment(s): Difficulty waking. Past blood transfusion without reaction. Smoking Status: Former smoker - Past Family History Mother Family Medical History: Respiratory Disorder Additional Family Medical History / Comment(s): Mother from a lung fungal infection at the age of 74 yrs. Father Family Medical History: Respiratory Disorder Additional Family Medical History / Comment(s): Father was a smoker and had work related fume exposure. He had a stomach ulcer. Sister(s) Family Medical History: Cancer Additional Family Medical History / Comment(s): BREAST Brother(s) Family Medical History: Cancer Medications and Allergies Home Medications Medication Instructions Recorded Confirmed Type Aspirin 81 mg PO DAILY 02/25/15 05/08/20 History Atorvastatin [Lipitor] 10 mg PO DAILY 02/25/15 05/08/20 History Glucosam/Demarcus-Msm1/C/Ralph/Bosw 1 tab PO DAILY 02/25/15 05/08/20 History [Glucosamine-Chondroitin Tablet] Loratadine [Claritin] 10 mg PO DAILY 02/25/15 05/08/20 History Multivitamins, Thera [Multivitamin 1 tab PO DAILY 02/25/15 05/08/20 History (formulary)] Gabapentin [Neurontin] 300 mg PO BID 10/24/18 05/08/20 History Clopidogrel [Plavix] 75 mg PO DAILY 05/08/20 05/08/20 History Donepezil [Aricept] 10 mg PO HS 05/08/20 05/08/20 History Ondansetron HCl [Zofran] 4 mg PO Q8H PRN 05/08/20 05/08/20 History Allergies Allergy/AdvReac Type Severity Reaction Status Date / Time morphine AdvReac Hallucinati Verified 05/08/20 12:40 ons Physical Exam Vitals: Vital Signs Temp Pulse Pulse Resp BP BP Pulse Ox 05/08/20 16:25 98.0 F 54 L 16 158/72 97 05/08/20 16:19 54 L 16 05/08/20 15:50 98.7 F 56 L 19 150/97 95 05/08/20 13:30 60 20 130/98 05/08/20 12:30 66 24 142/91 05/08/20 11:49 98.1 F 60 18 138/82 99 Intake and Output 05/08/20 05/08/20 05/08/20 06:59 14:59 22:59 Other: # Voids 1 Weight 79.379 kg 79.379 kg General Appearance: Alert, cooperative, no distress, appears stated age. Neck HEENT: Supple, no lymphadenopathy, no thyroid enlargement, no carotid bruits. Lungs: Decreased breath some bilateral fine rhonchi no crackles or wheezes. Chest Wall: Decreased expansion with deep inspiration no tenderness and no def ormity was found on exam, no costochondral pain or discomfort. Heart: Regular rate and rhythm, S1, S2 normal, no murmur, soft aortic valve click with no murmur. Back: Symmetric, no curvature, ROM normal, no CVA tenderness. Abdomen: Soft but distended slight discomfort midepigastric area and mid abdo he area no rebound or rigidity. Extremities: Extremities normal, atraumatic, no cyanosis or edema. Pulses: 2+ and symmetric. Skin: Skin color, texture, tugor normal, no rashes or lesions. Neurologic: Alert oriented x3 cranial nerves II through XII intact, generalized weakness with abnormal balance and gait. Results CBC & Chem 7: 05/08/20 12:00 05/08/20 12:00 Labs: Abnormal Lab Results - Last 24 Hours (Table) 05/08/20 Range/Units 12:00 BUN 23 H (9-20) mg/dL Glucose 113 H (74-99) mg/dL Thrombosis Risk Factor Assmnt - DVT/VTE Prophylaxis DVT/VTE Prophylaxis: Mechanical Prophylaxis ordered - Choose All That Apply Any of the Below Risk Factors Present?: Yes Other Risk Factors: Yes Each Risk Factor Represents 3 Points: Age 75 years or older Other congenital or acquired thrombophilia - If yes, enter type in comment: No Thrombosis Risk Factor Assessment Total Risk Factor Score: 3 Thrombosis Risk Factor Assessment Level: Moderate Risk Assessment and Plan Assessment: 1 abdominal pain with severe nausea: Patient had acute severe gastritis continue pantoprazole, continue hydration, continue Zofran for nausea and vomiting consult gastrology patient still symptomatic by tomorrow might benefit from going for an EGD. 2 intractable nausea: Continue Zofran and hydration. 3 severe dizziness: No finding on his CAT scan at this point patient is having side effect from gabapentin causing more abnormal balance and equilibrium will change the dose to 1 a day only at nighttime start tomorrow none for today. Continue to watch his mobility continue to watch his balance and gait patient will have a quick follow-up in the office after his discharge. 4 valvular heart disease: Post have her with severe aortic stenosis much better since his procedure his remain on secondary prevention with Plavix and aspirin. 5 severe neuropathy: Has been on gabapentin dose will be changed to 1 a day only. 6 dementia: Mostly Alzheimer type, patient still on Aricept 10 mg daily. 7 hyperlipidemia: Remain on atorvastatin 10 mg daily. 8 BPH: Watch for any urinary retention. 9 GI prophylaxis: Patient be on pantoprazole IV. 10 DVT prophylaxis: Knee-high LUDWIG hose and Venodyne boots. CODE STATUS: Full code. Admit patient to observation status for 1-2 nights stay.
[2020-05-08] MEDS: PANTOPRAZOLE 40 MG/10 ML VIAL IVP SCH (20:31)
[2020-05-08] MEDS: ONDANSETRON 4 MG/2 ML VIAL IVP PRN (20:37)
[2020-05-08] MEDS ORDERED: GABAPENTIN 300 MG CAP PO SCH (21:00)
[2020-05-08] MEDS ORDERED: DONEPEZIL 10 MG TAB PO SCH (21:00)
[2020-05-09] MEDS: SODIUM CHLORIDE 0.9% 1,000 ML IV SCH ×2 (03:33→16:52)
[2020-05-09] MEDS: ACETAMINOPHEN TAB 325 MG TAB PO PRN (04:35)
[2020-05-09] MEDS: ATORVASTATIN 10 MG TAB PO SCH (07:37)
[2020-05-09] MEDS: LORATADINE 10 MG TAB PO SCH (07:37)
[2020-05-09] MEDS: ASPIRIN 81 MG PO SCH (07:37)
[2020-05-09] MEDS: CLOPIDOGREL 75 MG TAB PO SCH (07:37)
[2020-05-09] MEDS: ONDANSETRON 4 MG/2 ML VIAL IVP PRN (07:38)
[2020-05-09] MEDS: PANTOPRAZOLE 40 MG/10 ML VIAL IVP SCH (07:38)
[2020-05-09 08:07] LABS: Basophils # (A) 0.1 k/uL (0-0.2); Basophils % (A) 1 %; Eosinophils # (A) 0.2 k/uL (0-0.7); Eosinophils % (A) 3 %; HCT 37.1 % (39.0-53.0); HGB 12.1 gm/dL (13.0-17.5); Lymphocytes # (A) 1.7 k/uL (1.0-4.8); Lymphocytes % (A) 27 %; MCH 28.3 pg (25.0-35.0); MCHC 32.6 g/dL (31.0-37.0); MCV 86.9 fL (80.0-100.0); Monocytes # (A) 0.3 k/uL (0-1.0); Monocytes % (A) 5 %; Neutrophils # (A) 3.9 k/uL (1.3-7.7); Neutrophils % (A) 62 %; Platelet Count 143 k/uL (150-450); RBC 4.27 m/uL (4.30-5.90); RDW 12.6 % (11.5-15.5); WBC 6.3 k/uL (3.8-10.6)
[2020-05-09 08:20] LABS: ALT 17 U/L (4-49); AST 26 U/L (17-59); African American GFR (CKD) >90 (>60 ml/min/1.73 sqM); Albumin 3.4 g/dL (3.5-5.0); Alkaline Phosphatase 73 U/L (38-126); Anion Gap 3 mmol/L; Blood Urea Nitrogen 18 mg/dL (9-20); Calcium 8.6 mg/dL (8.4-10.2); Carbon Dioxide 27 mmol/L (22-30); Chloride 107 mmol/L (98-107); Glucose 88 mg/dL (74-99); Non-African American GFR(CKD) 78 (>60 ml/min/1.73 sqM); Potassium 4.3 mmol/L (3.5-5.1); Sodium 137 mmol/L (137-145); Total Bilirubin 0.8 mg/dL (0.2-1.3); Total Protein 5.8 g/dL (6.3-8.2)
--- NOTE | 2020-05-09 09:39 | P.PN ---
Subjective Progress Note Date: 05/09/20 89-year-old male one of my office patient with multiple medical problem known to have history of valvular heart disease post Jeanne, history of CVA and TIA, multiple fall and fracture hip in the past. Patient presented to [facility] with his family today with symptom of severe dizziness and nausea for the last 2 weeks become progressively worse he was started on Zofran for nausea with no relief his symptoms become much worse with vomiting several times a day [facility] he has been complaining of abnormal balance and gait not been able to keep any food or fluid down. 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 CT of the C-spine and the brain showed white matter change with no new finding of stroke or bleed mild arthritis of the cervical spine as well. Patient was started on hydration pantoprazole Will admit to the hospital with changes his gabapentin to once a day only from twice a day see if it can help his balance gait and dizziness also we'll keep patient on pantoprazole on Zofran as needed consult gastroenterology if patient become symptomatic by tomorrow might benefit from EGD. 05/09/2020: Patient is complaining of a headache and light sensitivity. Patient continues to have increased nausea and increased vomiting. Patient has been up to the bathroom with no complaints of syncope. Positive weakness. Gabapentin was held yesterday will be held today. Patient states he is unable to move his lower extremities and weakness. Patient is able to follow commands with legs with positive strength. Patient has been afebrile, pulse 63, respirations 16, blood pressure 147/70, 92% on room air. WAC 6.3, hemoglobin 12.1, potassium 4.3, BUN 18, creatinine 0.86 Review of systems: CONSTITUTIONAL: Well-developed no acute respiratory distress. Reports headache EYES: Reports light sensitivity No icterus sclerae, no conjunctivitis. EARS, NOSE, MOUTH, THROAT, and FACE: No sore throat, lymphadenopathy, carotid bruits or deformity. RESPIRATORY: No SOB cough or wheezes. CARDIOVASCULAR: No CP, Palpitation, PND, Orthopnea, or angina. GASTROINTESTINAL: Abdominal pain nausea with vomiting no diarrhea or constipation no GI bleed at this point mild abdominal distention with slight change in bowel habit as well. GENITOURINARY: Negative for Hematuria or UTI, no kidney stones. INTEGUMENT/BREAST: Negative for any muscular injury with mild osteoarthritis.. HEMATOLOGIC/LYMPHATIC: Negative for bleed or purpura. MUSCULOSKELTAL: Reports Bilateral lower extremity weakness, Negative for Myalgia or arthralgia. NEURLOGICAL: Severe dizziness with abnormal balance and gait no sign of stroke at this point. BEHAVIORAL/PSYCH: Negative. ENDOCRINE: Negative. Objective - Vital Signs Vital signs: Vital Signs Temp 98.0 F 05/09/20 07:43 Pulse 63 05/09/20 07:43 Resp 17 05/09/20 07:43 BP 147/70 05/09/20 07:43 Pulse Ox 92 L 05/09/20 07:43 Intake & Output 05/08/20 05/09/20 05/09/20 18:59 06:59 18:59 Intake Total 460 Balance 460 Weight 79.379 kg Intake: Intake, IV Titration 300 Amount Sodium Chloride 0.9% 1, 300 000 ml @ 75 mls/hr IV . [id number] [facility] Rx#:[id number] Oral 160 Other: Voiding Method Toilet # Voids 1 1 1 # Emeses 1 - Exam General Appearance: 89-year-old male Alert, cooperative, no distress, appears stated age. Neck HEENT: Supple, no lymphadenopathy, no thyroid enlargement, no carotid bruits. Lungs: Decreased breath some bilateral fine rhonchi no crackles or wheezes. Chest Wall: Decreased expansion with deep inspiration no tenderness and no defo rmity was found on exam, no costochondral pain or discomfort. Heart: Regular rate and rhythm, S1, S2 normal, no murmur, soft aortic valve click with no murmur. Back: Symmetric, no curvature, ROM normal, no CVA tenderness. Abdomen: Soft but distended slight discomfort midepigastric area and mid abdom inal area no rebound or rigidity. Extremities: Extremities normal, atraumatic, no cyanosis or edema. Pulses: 2+ and symmetric. Skin: Skin color, texture, tugor normal, no rashes or lesions. Neurologic: Alert oriented x3 cranial nerves II through XII intact, generalized weakness with abnormal balance and gait. - Labs CBC & Chem 7: 05/09/20 07:27 05/09/20 07:27 Labs: Abnormal Lab Results - Last 24 Hours (Table) 05/08/20 05/09/20 05/09/20 Range/Units 12:00 07:27 07:27 RBC 4.27 L (4.30-5.90) m/uL Hgb 12.1 L (13.0-17.5) gm/dL Hct 37.1 L (39.0-53.0) % Plt Count 143 L (150-450) k/uL BUN 23 H (9-20) mg/dL Glucose 113 H (74-99) mg/dL Total Protein 5.8 L (6.3-8.2) g/dL Albumin 3.4 L (3.5-5.0) g/dL Assessment and Plan Plan: 1 abdominal pain with severe nausea: Patient had acute severe gastritis continue pantoprazole, continue hydration, continue Zofran for nausea and vomiting consult gastrology patient still symptomatic by tomorrow might benefit from going for an EGD. 2 intractable nausea: Continue Zofran and hydration. 3 severe dizziness: No finding on his CAT scan at this point patient is having side effect from gabapentin causing more abnormal balance and equilibrium. Discontinue gabapentin, discontinue Aricept Continue to watch his mobility continue to watch his balance and gait. Consult OT PT 4 valvular heart disease: Post have her with severe aortic stenosis much better since his procedure his remain on secondary prevention with Plavix and aspirin. 5 severe neuropathy: Has been on gabapentin dose will be changed to 1 a day only. 6 dementia: Mostly Alzheimer type, Hold Aricept 10 mg at this time. 7 hyperlipidemia: Remain on atorvastatin 10 mg daily. 8 BPH: Watch for any urinary retention. 9. Debility: Consult PTOT 10 GI prophylaxis: Patient be on pantoprazole IV. 11 DVT prophylaxis: Knee-high LUDWIG hose and Venodyne boots. 12. Covid 19 pending CODE STATUS: Full code. Admit patient to inpatient status minimum of 2 nights day. Impression and plan of care have been directed as dictated by the signing physician. Mary March nurse practitioner acting as scribe for signing physician.
--- NOTE | 2020-05-09 09:42 | P.CRDCN ---
History of Present Illness Consult date: 05/09/20 Reason for Consult (text): New left bundle branch block Chief complaint: Nausea History of present illness: History of present illness: This is an 89-year-old male. He has a past medical history of severe aortic stenosis status post tavern done at [facility] several years ago. Patient has history of CVA and TIA, dyslipidemia. Patient has had abdominal pain, nausea and dizziness for the past 2 weeks. Patient was placed on Zofran but symptoms continued to worsen. Patient was brought into [facility] emergency center for evaluation. CBC was normal, electrolytes normal, BUN 23 creatinine 0.88, blood sugar 113. CAT scan of the abdomen and pelvis with contrast that revealed bilateral atelectasis, diverticulosis without diverticulitis, fusiform prominence in the mid abdomen aorta. CAT scan of the brain showed periventricular white matter changes and age-related atrophy but no acute findings. Cervical CAT scan showed degenerative disc disease, transmission superintendent vertebral joint hypertrophy and foraminal stenosis. Chest x-ray showed no acute pulmonary process. EKG revealed a left bundle branch block. Previous EKG from October 2018 this was not present. Troponins are negative on 3 draws. Patient denies any chest pain. The patient has history of smoking quit in 1973. Review Of Systems: Constitutional: No fever, no chills. No weakness, fatigue or lethargy. EENT: No headache. No blurred vision or double vision, no loss of vision. No loss of Hearing, reports dizziness. No nasal drainage or congestion. No epistaxis. No sore throat. Lungs: No shortness of breath, cough, no sputum production. No wheezing. Cardiovascular: No chest pain, no lower extremity edema. No palpitations. No paroxysmal nocturnal dyspnea. No orthopnea. No lightheadedness or dizziness. No syncopal episodes. Abdominal: Reports abdominal pain. Reports nausea, vomiting. No diarrhea. No constipation. No bloody or tarry stools.. No loss of appetite. Genitourinary: No dysuria, increased frequency, urgency. No urinary retention. Musculoskeletal: No myalgias. No muscle weakness, no gait dysfunction, no frequent falls. No back pain. No neck pain. Integumentary: No wounds, no lesions. No rash or pruritus. No unusual bruising. Neurologic: No aphasia. No facial droop. No change in mentation. No head injury. No headache. No paralysis. No paresthesia. Psychiatric: No depression. No anxiety. No mood swings. Endocrine: No abnormal blood sugars. No weight change. No excessive sweating or thirst. No weight change. Physical examination: Gen: This is an 89-year-old male. Patient's resting bed and appears comfortable and in no acute distress. HEENT: Head is atraumatic, normocephalic. Pupils equal, round. Sclerae is anicteric. NECK: Supple. No JVD. No lymphadenopathy. No thyromegaly. LUNGS: Clear to auscultation. No wheezes or rhonchi. No intercostal retract ions. HEART: Regular rate and rhythm. No murmur. Soft aortic valve click ABDOMEN: Soft. Bowel sounds are present. No masses. No tenderness. EXTREMITIES: No pedal edema. No calf tenderness. NEUROLOGICAL: Patient is awake, alert and oriented x3. Cranial nerves 2 through 12 are grossly intact. Assessment: Dizziness of unclear etiology Left bundle branch block new from October 2018, multiple etiologies are possible including TAVR Acute coronary syndrome ruled out Dyslipidemia History of aortic stenosis s/p TAVR No signs of heart failure Nausea and vomiting, abdominal pain Plan: Orthostatic vital signs Obtain 2-D echocardiogram and Doppler study to assess prosthetic valve and LV function Further recommendations to follow based upon clinical course Thank you kindly for this consultation Nurse practitioner note has been reviewed, I agree with documented findings and plan of care. Patient was seen and examined. Past Medical History Past Medical History: CVA/TIA, GERD/Reflux, Memory Impairment, Osteoarthritis (OA), Prostate Disorder Additional Past Medical History / Comment(s): CVA with R eye vision affected- resolved, aortic stenosis with valve replacement, murmur, pt states he was told at [facility] during TAVR that he has "black spots" on his lungs and needs further work up but never happened d/t covid, vertigo, BPH-difficulty emptying bladder, DDD/bulging discs with bilateral leg neuropathy. History of Any Multi-Drug Resistant Organisms: None Reported Past Surgical History: Appendectomy, Cholecystectomy, Heart Catheterization, Aura nt Replacement, Orthopedic Surgery, Tonsillectomy Additional Past Surgical History / Comment(s): TAVR, TEEs, R hip hemiarthroplasty then total R hip, R femur fracture with surgical repair/hardware, total R knee arthroplasty, bilateral knee arthroscopies, R hand tendon surgery, colonoscopies/benign polypectomies, hemorrhoidectomy. Past Anesthesia/Blood Transfusion Reactions: Motion Sickness Additional Past Anesthesia/Blood Transfusion Reaction / Comment(s): Difficulty waking. Past blood transfusion without reaction. Smoking Status: Former smoker - Past Family History Mother Family Medical History: Respiratory Disorder Additional Family Medical History / Comment(s): Mother from a lung fungal infection at the age of 74 yrs. Father Family Medical History: Respiratory Disorder Additional Family Medical History / Comment(s): Father was a smoker and had work related fume exposure. He had a stomach ulcer. Sister(s) Family Medical History: Cancer Additional Family Medical History / Comment(s): BREAST Brother(s) Family Medical History: Cancer Medications and Allergies Home Medications Medication Instructions Recorded Confirmed Type Aspirin 81 mg PO DAILY 02/25/15 05/08/20 History Atorvastatin [Lipitor] 10 mg PO DAILY 02/25/15 05/08/20 History Glucosam/Demarcus-Msm1/C/Ralph/Bosw 1 tab PO DAILY 02/25/15 05/08/20 History [Glucosamine-Chondroitin Tablet] Loratadine [Claritin] 10 mg PO DAILY 02/25/15 05/08/20 History Multivitamins, Thera [Multivitamin 1 tab PO DAILY 02/25/15 05/08/20 History (formulary)] Gabapentin [Neurontin] 300 mg PO BID 10/24/18 05/08/20 History Clopidogrel [Plavix] 75 mg PO DAILY 05/08/20 05/08/20 History Donepezil [Aricept] 10 mg PO HS 05/08/20 05/08/20 History Ondansetron HCl [Zofran] 4 mg PO Q8H PRN 05/08/20 05/08/20 History Allergies Allergy/AdvReac Type Severity Reaction Status Date / Time morphine AdvReac Hallucinati Verified 05/08/20 12:40 ons Physical Exam Vitals: Vital Signs Temp Pulse Pulse Pulse Resp BP BP 05/09/20 07:43 98.0 F 63 16 147/70 05/09/20 04:30 97.9 F 56 L 17 156/67 05/09/20 02:19 97.8 F 56 L 18 164/84 05/08/20 21:00 97.6 F 50 L 50 L 17 154/70 05/08/20 16:25 98.0 F 54 L 16 158/72 05/08/20 16:19 54 L 16 05/08/20 15:50 98.7 F 56 L 19 150/97 05/08/20 13:30 60 20 130/98 05/08/20 12:30 66 24 142/91 05/08/20 11:49 98.1 F 60 18 138/82 Pulse Ox 05/09/20 07:43 92 L 05/09/20 04:30 94 L 05/09/20 02:19 97 05/08/20 21:00 96 05/08/20 16:25 97 05/08/20 16:19 05/08/20 15:50 95 05/08/20 13:30 05/08/20 12:30 05/08/20 11:49 99 Intake and Output 05/08/20 05/09/20 05/09/20 22:59 06:59 14:59 Intake Total 100 360 Balance 100 360 Intake: Intake, IV Titration 300 Amount Sodium Chloride 0.9% 1, 300 000 ml @ 75 mls/hr IV . [id number] [facility] Rx#:[id number] Oral 100 60 Other: Voiding Method Toilet Toilet # Voids 1 1 1 # Emeses 1 Weight 79.379 kg Results 05/09/20 07:27 05/09/20 07:27 Cardiac Enzymes 05/08/20 05/08/20 05/08/20 Range/Units 12:00 12:00 15:18 AST 31 (17-59) U/L Troponin I <0.012 0.013 (0.000-0.034) ng/mL 05/08/20 05/09/20 Range/Units 18:05 07:27 AST 26 (17-59) U/L Troponin I 0.015 (0.000-0.034) ng/mL Coagulation 05/08/20 Range/Units 12:00 PT 10.2 (9.0-12.0) sec CBC 05/08/20 05/09/20 Range/Units 12:00 07:27 WBC 9.0 6.3 (3.8-10.6) k/uL RBC 4.80 4.27 L (4.30-5.90) m/uL Hgb 13.4 12.1 L (13.0-17.5) gm/dL Hct 41.9 37.1 L (39.0-53.0) % Plt Count 175 143 L (150-450) k/uL Comprehensive Metabolic Panel 05/08/20 05/09/20 Range/Units 12:00 07:27 Sodium 138 137 (137-145) mmol/L Potassium 4.2 4.3 (3.5-5.1) mmol/L Chloride 102 107 (98-107) mmol/L Carbon Dioxide 28 27 (22-30) mmol/L BUN 23 H 18 (9-20) mg/dL Creatinine 0.88 0.86 (0.66-1.25) mg/dL Glucose 113 H 88 (74-99) mg/dL Calcium 9.5 8.6 (8.4-10.2) mg/dL AST 31 26 (17-59) U/L ALT 21 17 (4-49) U/L Alkaline Phosphatase 87 73 (38-126) U/L Total Protein 7.1 5.8 L (6.3-8.2) g/dL Albumin 4.4 3.4 L (3.5-5.0) g/dL Current Medications Generic Name Dose Route Start Last Admin Trade Name Freq PRN Reason Stop Dose Admin Acetaminophen 650 mg 05/09/20 04:30 05/09/20 04:35 Tylenol Tab PO 650 mg Q6HR PRN Administration Fever and/ or Pain Aspirin 81 mg 05/09/20 09:00 05/09/20 07:37 Aspirin PO 81 mg DAILY YULIANA Administration Atorvastatin Calcium 10 mg 05/09/20 09:00 05/09/20 07:37 Lipitor PO 10 mg DAILY YULIANA Administration Clopidogrel Bisulfate 75 mg 05/09/20 09:00 05/09/20 07:37 Plavix PO 75 mg DAILY YULIANA Administration Donepezil HCl 10 mg 05/08/20 21:00 05/08/20 20:32 Aricept PO 10 mg HS YULIANA Administration Gabapentin 300 mg 05/08/20 21:00 05/08/20 20:31 Neurontin PO 300 mg HS YULIANA Administration Sodium Chloride 1,000 mls @ 75 mls/hr 05/08/20 15:00 05/09/20 03:33 Saline 0.9% IV 75 mls/hr .[id number] YULIANA Administration Loratadine 10 mg 05/09/20 09:00 05/09/20 07:37 Claritin PO Not Given DAILY YULIANA Naloxone HCl 0.2 mg 05/08/20 14:56 Narcan IV Q2M PRN Opioid Reversal Ondansetron HCl 4 mg 05/08/20 14:56 05/09/20 07:38 Zofran IVP 4 mg Q8HR PRN Administration Nausea And Vomiting Ondansetron HCl 4 mg 05/08/20 18:08 Zofran PO Q8H PRN Nausea And Vomiting Pantoprazole Sodium 40 mg 05/08/20 21:00 05/09/20 07:38 Protonix IVP 40 mg BID YULIANA Administration Intake and Output 05/08/20 05/09/20 05/09/20 22:59 06:59 14:59 Intake Total 100 360 Balance 100 360 Intake: Intake, IV Titration 300 Amount Sodium Chloride 0.9% 1, 300 000 ml @ 75 mls/hr IV . [id number] [facility] Rx#:[id number] Oral 100 60 Other: Voiding Method Toilet Toilet # Voids 1 1 1 # Emeses 1 Weight 79.379 kg 05/09/20 07:27 05/09/20 07:27
[2020-05-09] MEDS: FLUTICASONE 50MCG/SPRAY NASAL 16GM EA NOSTRIL SCH (09:51)
--- NOTE | 2020-05-09 13:00 | ECHOF ---
Referral Reason:LVF MEASUREMENTS -------- HEIGHT: 182.9 cm WEIGHT: 79.4 kg BP: RVIDd: 3.6 cm (< 3.3) IVSd: 1.1 cm (0.6 - 1.1) LVIDd: 3.9 cm (3.9 - 5.3) LVPWd: 1.0 cm (0.6 - 1.1) IVSs: 1.1 cm LVIDs: 3.8 cm LVPWs: 1.0 cm LA Diam: 3.8 cm (2.7 - 3.8) MV E Matt: 0.41 m/s MV DecT: 193 ms MV A Matt: 1.10 m/s MV E/A Ratio: 0.37 AV maxP.13 mmHg AV meanP.66 mmHg RAP: 5.00 mmHg RVSP: 15.19 mmHg FINDINGS -------- Sinus rhythm. This was a technically adequate study. Pt unable to turn. The left ventricular size is normal. Overall left ventricular systolic function is low-normal with, an EF between 50 - 55 %. The right ventricle is normal in size. The left atrial size is normal. The right atrial size is normal. Peak/mean gradient across the Aortic Valve is 22.13mmHg / 11.66mmHg. Normally functioning bioprosth etic valve. Mild mitral annular calcification present. Mild mitral regurgitation is present. Mild tricuspid regurgitation present. Right ventricular systolic pressure is normal at < 35 mmHg. There is no pulmonic regurgitation present. The aortic root size is normal. There is no pericardial effusion. CONCLUSIONS -------- 1. Pt unable to turn. 2. The left ventricular size is normal. 3. Overall left ventricular systolic function is low-normal with, an EF between 50 - 55 %. 4. The right ventricle is normal in size. 5. The left atrial size is normal. 6. The right atrial size is normal. 7. Peak/mean gradient across the Aortic Valve is 22.13mmHg / 11.66mmHg. 8. Normally functioning bioprosthetic valve. 9. Mild mitral annular calcification present. 10. Mild mitral regurgitation is present. 11. Mild tricuspid regurgitation present. 12. Right ventricular systolic pressure is normal at < 35 mmHg. MECHANICAL MANUFACTURING ENGINEER: Mercy Kuhn RDCS
[2020-05-09 14:42] VITALS: BMI 23.7
[2020-05-09] MEDS: PANTOPRAZOLE 40 MG TABLET PO SCH (19:58)
--- NOTE | 2020-05-09 21:29 | CONS ---
CONSULTATION DATE OF SERVICE: May 09, 2020. REQUESTING PHYSICIAN: Dr. Julien. REASON FOR CONSULTATION: Abdominal pain, nausea, vomiting of 4 days duration. HISTORY OF PRESENT ILLNESS: The patient is an 83-year-old pleasant white male with history of congestive heart failure, CVA in the past, history of degenerative joint disease, came to the hospital because of severe lightheadedness, not feeling well, associated with nausea, vomiting for the last 2 weeks duration. However, for the last 4 days, he started having several episodes of emesis. He was admitted to the hospital. He was started on IV Protonix as well as Zofran and this morning he says that his nausea is better. He had not thrown up. However, he is scared to eat because he is concerned about recurrent symptoms. He denies any vertigo symptoms. He never had these symptoms in the past. No prior history of peptic ulcer disease or recent NSAID use. In the ER, he did have a CT of the abdomen and pelvis done that showed some diverticulosis and abdominal aortic aneurysm measuring 3.4 cm in size. PAST MEDICAL HISTORY: Significant for hypertension, history of CVA in the past, gastroesophageal reflux disease, mild dementia. PAST SURGICAL HISTORY: Cholecystectomy, appendectomy, cardiac catheterization, tonsillectomy, right hip hemiarthroplasty, bilateral knee arthroscopies. SOCIAL HISTORY: Former smoker. No alcohol use. FAMILY HISTORY: Mother had COPD. MEDICATIONS: Medications at home include: Aspirin, Lipitor, statin, multivitamin, Neurontin, Plavix, Aricept, Zofran. REVIEW OF SYSTEMS: CARDIOPULMONARY: Denies any chest pain or shortness of breath. no dysuria or hematuria. MUSCULOSKELETAL: Complains of some left hip pain. NEUROLOGY unremarkable. History of mild dementia. ENT: Vision unremarkable. CONSTITUTIONAL: No recent weight loss. No fever, chills, night sweats. GI: As mentioned above. HEMATOLOGY unremarkable. PSYCHIATRIC unremarkable. PHYSICAL EXAMINATION: He appears comfortable. No apparent distress. Vital signs stable. Blood pressure is 147/70, pulse rate 54, temperature 97.4. HEENT examination unremarkable. Conjunctivae pink. Sclerae anicteric. Oral cavity no lesions. NECK: No JVD or lymph node enlargement. CHEST: Clear to auscultation. HEART: Regular rate and rhythm. ABDOMEN: Soft. Bowel sounds are positive. No organomegaly. EXTREMITIES: No pedal edema. NEURO: He is alert and oriented x3. No focal deficits. LABS: From today WBC 6.2, hemoglobin 12.1, platelets 143. Rest of the basic metabolic panel is within normal limits. IMPRESSION: 1. Nausea and vomiting with epigastric pain for the last 4 days duration. Patient is doing better. Currently on Protonix 40 mg daily as well as Zofran 4 mg every 6 hours as needed. 2. History of cerebrovascular accident in the past. 3. Abdominal aortic aneurysm. Recent CT scan showed a 3.4 cm aneurysm. 4. History of gastroesophageal reflux disease. 5. Severe lightheadedness, improving. RECOMMENDATIONS: 1. Since the patient is doing better. Continue with Zofran as well as Protonix. 2. Advance diet as tolerated. 3. No plans for any endoscopy intervention at the present time since the symptoms are gradually improving. 4. We will follow with you closely. Thank you for this consultation. PANCHO / CURTISN: [id number] /
[2020-05-10] MEDS: ONDANSETRON 4 MG/2 ML VIAL IVP PRN ×2 (08:13→20:54)
[2020-05-10] MEDS: PANTOPRAZOLE 40 MG TABLET PO SCH ×2 (08:55→20:51)
[2020-05-10] MEDS: LORATADINE 10 MG TAB PO SCH (08:55)
[2020-05-10] MEDS: ATORVASTATIN 10 MG TAB PO SCH (08:55)
[2020-05-10] MEDS: FLUTICASONE 50MCG/SPRAY NASAL 16GM EA NOSTRIL SCH (08:55)
[2020-05-10 09:47] LABS: Basophils % (A) 1 %; Eosinophils # (A) 0.2 k/uL (0-0.7); Eosinophils % (A) 4 %; HCT 37.9 % (39.0-53.0); HGB 12.3 gm/dL (13.0-17.5); Lymphocytes # (A) 1.2 k/uL (1.0-4.8); Lymphocytes % (A) 22 %; MCH 28.4 pg (25.0-35.0); MCHC 32.5 g/dL (31.0-37.0); MCV 87.3 fL (80.0-100.0); Mean Platelet Volume 8.3; Monocytes # (A) 0.4 k/uL (0-1.0); Monocytes % (A) 7 %; Neutrophils # (A) 3.6 k/uL (1.3-7.7); Neutrophils % (A) 64 %; Platelet Count 124 k/uL (150-450); RBC 4.35 m/uL (4.30-5.90); RDW 12.6 % (11.5-15.5); WBC 5.6 k/uL (3.8-10.6)
[2020-05-10 10:01] LABS: ALT 17 U/L (4-49); AST 26 U/L (17-59); African American GFR (CKD) >90 (>60 ml/min/1.73 sqM); Albumin 3.4 g/dL (3.5-5.0); Alkaline Phosphatase 71 U/L (38-126); Anion Gap 5 mmol/L; Blood Urea Nitrogen 16 mg/dL (9-20); Calcium 8.6 mg/dL (8.4-10.2); Carbon Dioxide 27 mmol/L (22-30); Chloride 107 mmol/L (98-107); Glucose 112 mg/dL (74-99); Non-African American GFR(CKD) 80 (>60 ml/min/1.73 sqM); Sodium 139 mmol/L (137-145); Total Bilirubin 0.8 mg/dL (0.2-1.3); Total Protein 5.9 g/dL (6.3-8.2)
--- NOTE | 2020-05-10 10:12 | P.PN ---
Subjective Progress Note Date: 05/10/20 89-year-old male one of my office patient with multiple medical problem known to have history of valvular heart disease post Jeanne, history of CVA and TIA, multiple fall and fracture hip in the past. Patient [facility] with his family today with symptom of severe dizziness and nausea for the last 2 weeks become progressively worse he was started on Zofran for nausea with no relief his symptoms become much worse with vomiting several times a day ended up coming to [facility] he has been complaining of abnormal balance and gait not been able to keep any food or fluid down. 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 CT of the C-spine and the brain showed white matter change with no new finding of stroke or bleed mild arthritis of the cervical spine as well. Patient was started on hydration pantoprazole Will admit to the hospital with changes his gabapentin to once a day only from twice a day see if it can help his balance gait and dizziness also we'll keep patient on pantoprazole on Zofran as needed consult gastroenterology if patient become symptomatic by tomorrow might benefit from EGD. 05/09/2020: Patient is complaining of a headache and light sensitivity. Patient continues to have increased nausea and increased vomiting. Patient has been up to the bathroom with no complaints of syncope. Positive weakness. Gabapentin was held yesterday will be held today. Patient states he is unable to move his lower extremities and weakness. Patient is able to follow commands with legs with positive strength. Patient has been afebrile, pulse 63, respirations 16, blood pressure 147/70, 92% on room air. WAC 6.3, hemoglobin 12.1, potassium 4.3, BUN 18, creatinine 0.86 05/10/: Patient appears more confused today. Continues to have neuropathy discomfort including jitteriness. Patient states that he is not sleeping very well due to his legs bouncing all night. Patient was not given the gabapentin yesterday evening. Patient states that he has not had any nausea or vomiting and is starting to feel better. WC5.6, hemoglobin 12.3, potassium 4.0, BUN 16, creatinine 0.81. Patient has been afebrile. No change in orthostatic vital signs. Heart rate is 62, respirations 18, blood pressure 150/66, pulse ox 95% on room air. Review of systems: CONSTITUTIONAL: Well-developed no acute respiratory distress. Denies headache EYES: Reports light sensitivity No icterus sclerae, no conjunctivitis. EARS, NOSE, MOUTH, THROAT, and FACE: No sore throat, lymphadenopathy, carotid bruits or deformity. RESPIRATORY: No SOB cough or wheezes. CARDIOVASCULAR: No CP, Palpitation, PND, Orthopnea, or angina. GASTROINTESTINAL: Denies abdominal pain no nausea or vomiting no diarrhea or constipation no GI bleed at this point GENITOURINARY: Negative for Hematuria or UTI, no kidney stones. INTEGUMENT/BREAST: Negative for any muscular injury with mild osteoarthritis.. HEMATOLOGIC/LYMPHATIC: Negative for bleed or purpura. MUSCULOSKELTAL: Reports Bilateral lower extremity weakness, Negative for Myalgia or arthralgia. NEURLOGICAL: Severe dizziness with abnormal balance and gait no sign of stroke at this point. BEHAVIORAL/PSYCH: Negative. ENDOCRINE: Negative. Objective - Vital Signs Vital signs: Vital Signs Temp 97.7 F 05/10/20 07:00 Pulse 62 05/10/20 07:00 Resp 18 05/10/20 07:00 BP 150/66 05/10/20 07:00 Pulse Ox 95 05/10/20 07:00 Intake & Output 05/09/20 05/10/20 05/10/20 18:59 06:59 18:59 Intake Total 1200 Balance 1200 Weight 79.379 kg Intake: Intake, IV Titration 1200 Amount Sodium Chloride 0.9% 1, 1200 000 ml @ 75 mls/hr IV . [id number] [facility] Rx#:[id number] Other: Voiding Method Toilet # Voids 1 3 # Bowel Movements 1 - Exam General Appearance: 89-year-old male Alert, cooperative, no distress, appears stated age. Neck HEENT: Supple, no lymphadenopathy, no thyroid enlargement, no carotid bruits. Lungs: Decreased breath some bilateral fine rhonchi no crackles or wheezes. Chest Wall: Decreased expansion with deep inspiration no tenderness and no deformity was found on exam, no costochondral pain or discomfort. Heart: Regular rate and rhythm, S1, S2 normal, no murmur, soft aortic valve click with no murmur. Back: Symmetric, no curvature, ROM normal, no CVA tenderness. Abdomen: Soft but distended slight discomfort midepigastric area and mid abdominal area no rebound or rigidity. Extremities: Extremities normal, atraumatic, no cyanosis or edema. Pulses: 2+ and symmetric. Skin: Skin color, texture, tugor normal, no rashes or lesions. Neurologic: Alert oriented x3 cranial nerves II through XII intact, generalized weakness with abnormal balance and gait. - Labs CBC & Chem 7: 05/10/20 09:27 05/10/20 09:27 Labs: Abnormal Lab Results - Last 24 Hours (Table) 05/10/20 05/10/20 Range/Units 09:27 09:27 Hgb 12.3 L (13.0-17.5) gm/dL Hct 37.9 L (39.0-53.0) % Plt Count 124 L (150-450) k/uL Glucose 112 H (74-99) mg/dL Total Protein 5.9 L (6.3-8.2) g/dL Albumin 3.4 L (3.5-5.0) g/dL Assessment and Plan Plan: 1 abdominal pain with severe nausea: Patient had acute severe gastritis continue pantoprazole, continue hydration, continue Zofran for nausea and vomiting gastroenterology consult appreciated. Symptoms have improved. Gabapentin DC'd. 2 intractable nausea: Continue Zofran and hydration. Improved 3 severe dizziness: No finding on his CAT scan at this point patient is having side effect from gabapentin causing more abnormal balance and equilibrium. Discontinue gabapentin, discontinue Aricept Continue to watch his mobility continue to watch his balance and gait. Consult OT PT. Orthostatic blood pressures unremarkable 4 valvular heart disease: Post have her with severe aortic stenosis much better since his procedure his remain on secondary prevention with Plavix and aspirin. 5 severe neuropathy: Gabapentin DC'd, will start Requip 1 mg daily at bedtime 6 dementia: Mostly Alzheimer type, Hold Aricept 10 mg at this time. 7 hyperlipidemia: Remain on atorvastatin 10 mg daily. 8 BPH: Watch for any urinary retention. 9. Debility: Consult PT/OT 10 GI prophylaxis: Patient be on pantoprazole IV. 11 DVT prophylaxis: Knee-high LUDWIG hose and Venodyne boots. 12. Covid 19 pending CODE STATUS: Full code. Admit patient to inpatient status minimum of 2 nights day. Impression and plan of care have been directed as dictated by the signing physician. Mary March nurse practitioner acting as scribe for signing physician.
[2020-05-10] MEDS: CLOPIDOGREL 75 MG TAB PO SCH ×2 (11:36→17:56)
[2020-05-10] MEDS: ASPIRIN 81 MG PO SCH (11:36)
--- NOTE | 2020-05-10 12:11 | P.PN ---
Subjective Progress Note Date: 05/10/20 History of present illness: This is an 89-year-old male. He has a past medical history of severe aortic stenosis status post tavern done at [facility] several years ago. Patient has history of CVA and TIA, dyslipidemia. Patient has had abdominal pain, nausea and dizziness for the past 2 weeks. Patient was placed on Zofran but symptoms continued to worsen. Patient was brought into [facility] emergency center for evaluation. CBC was normal, electrolytes normal, BUN 23 creatinine 0.88, blood sugar 113. CAT scan of the abdomen and pelvis with contrast that revealed bilateral atelectasis, diverticulosis without diverticulitis, fusiform prominence in the mid abdomen aorta. CAT scan of the brain showed periventricular white matter changes and age-related atrophy but no acute findings. Cervical CAT scan showed degenerative disc disease, senior solutions workflow consultant vertebral joint hypertrophy and foraminal stenosis. Chest x-ray showed no acute pulmonary process. EKG revealed a left bundle branch block. Previous EKG from October 2018 this was not present. Troponins are negative on 3 draws. Patient denies any chest pain. The patient has history of smoking quit in 1973. 05/10: The patient is seen today in follow-up on the [facility] floor. He states his nausea and dizziness of resolved. He was up to the bathroom with assistance and cane and denies any dizziness with ambulation. Repeat orthostatics have been negative. Echocardiogram reveals EF of 50-55%, mild mitral regurgitation and mild tricuspid regurgitation. He has been afebrile, heart rate 62, blood pressure 150/66 and pulse ox 95% on room air. Physical examination: Gen: This is an 89-year-old male. Patient's resting bed and appears comfortable and in no acute distress. HEENT: Head is atraumatic, normocephalic. Pupils equal, round. Sclerae is anicteric. NECK: Supple. No JVD. No lymphadenopathy. No thyromegaly. LUNGS: Clear to auscultation. No wheezes or rhonchi. No intercostal retractions. HEART: Regular rate and rhythm. No murmur. Soft aortic valve click ABDOMEN: Soft. Bowel sounds are present. No masses. No tenderness. EXTREMITIES: No pedal edema. No calf tenderness. NEUROLOGICAL: Patient is awake, alert and oriented x3. Cranial nerves 2 through 12 are grossly intact. Patient is noted to have some minor short-term memory deficits. This may be his baseline. Assessment: Dizziness of unclear etiology, resolved Left bundle branch block new from October 2018, multiple etiologies are possible including TAVR Acute coronary syndrome ruled out Dyslipidemia History of aortic stenosis s/p TAVR No signs of heart failure Nausea and vomiting, abdominal pain, resolved Plan: Orthostatic vital signs have been negative Patient is cleared for discharge from cardiology perspective Nurse practitioner note has been reviewed, I agree with documented findings and plan of care. Patient was seen and examined. Objective - Vital Signs Vital signs: Vital Signs Temp 97.7 F 05/10/20 07:00 Pulse 62 05/10/20 07:00 Resp 18 05/10/20 07:00 BP 150/66 05/10/20 07:00 Pulse Ox 95 05/10/20 07:00 Intake & Output 05/09/20 05/10/20 05/10/20 18:59 06:59 18:59 Intake Total 1200 Balance 1200 Weight 79.379 kg Intake: Intake, IV Titration 1200 Amount Sodium Chloride 0.9% 1, 1200 000 ml @ 75 mls/hr IV . [id number] YULIANA Rx#:[id number] Other: Voiding Method Toilet # Voids 1 3 # Bowel Movements 1 - Labs CBC & Chem 7: 05/10/20 09:27 05/10/20 09:27
--- NOTE | 2020-05-10 16:29 | PN ---
PROGRESS NOTE DATE OF SERVICE: 05/10/2020 Patient is an 89-year-old white male admitted to hospital with severe nausea, dizziness, lightheadedness, occasional emesis on and off for the last two days duration. Since being in the hospital, he was started on Protonix and since then he is feeling much better. He was able to eat regular diet for breakfast this morning, tolerating diet. His dizziness is much improved. The abdominal pain has completely resolved, no emesis. PHYSICAL EXAMINATION: He appears comfortable, no distress. Vital signs are stable. Blood pressure is 124/64, pulse is 55, temperature 98.1. HEENT examination unremarkable. Conjunctivae pink. Sclerae anicteric. Oral cavity no lesions. NECK: No JVD. No lymph node enlargement. CHEST was clear to auscultation. HEART: Regular rate and rhythm. ABDOMEN: Soft. Bowel sounds are positive. No organomegaly. EXTREMITIES: No pedal edema. SKIN: No rashes. NEURO: He is alert and oriented x3. No focal deficits. LABS: WBC 5.6, hemoglobin 12.3 platelets 124. Basic metabolic panel is within normal limits. Amylase and lipase within normal. IMPRESSION: 1. Persistent epigastric pain associated with nausea, vomiting of 3-4 days duration. Presently on Protonix and Zofran. His symptoms significantly improved. On a regular diet tolerating well. 2. History of dementia. 3. History of hypertension and hyperlipidemia. 4. History of cerebrovascular accident in the past. RECOMMENDATIONS: 1. Advance diet as tolerated. 2. Continue with Protonix and Zofran. 3. No plans for any endoscopic intervention as the symptoms are improving. 4. Will follow with you closely. Thank you for this consultation. MMODL / IJN: [id number] /
[2020-05-10] MEDS: SODIUM CHLORIDE 0.9% 1,000 ML IV SCH ×2 (20:47→20:51)
[2020-05-11 06:55] LABS: Basophils % (A) 1 %; Eosinophils # (A) 0.2 k/uL (0-0.7); Eosinophils % (A) 4 %; HCT 36.8 % (39.0-53.0); HGB 12.1 gm/dL (13.0-17.5); Lymphocytes # (A) 1.7 k/uL (1.0-4.8); Lymphocytes % (A) 28 %; MCH 28.6 pg (25.0-35.0); MCV 86.7 fL (80.0-100.0); Mean Platelet Volume 8.2; Monocytes # (A) 0.4 k/uL (0-1.0); Monocytes % (A) 7 %; Neutrophils # (A) 3.7 k/uL (1.3-7.7); Neutrophils % (A) 59 %; Platelet Count 139 k/uL (150-450); RBC 4.24 m/uL (4.30-5.90); RDW 12.6 % (11.5-15.5); WBC 6.3 k/uL (3.8-10.6)
[2020-05-11 07:09] LABS: ALT 18 U/L (4-49); AST 27 U/L (17-59); African American GFR (CKD) >90 (>60 ml/min/1.73 sqM); Albumin 3.4 g/dL (3.5-5.0); Alkaline Phosphatase 76 U/L (38-126); Anion Gap 4 mmol/L; Blood Urea Nitrogen 16 mg/dL (9-20); Calcium 8.8 mg/dL (8.4-10.2); Carbon Dioxide 27 mmol/L (22-30); Chloride 106 mmol/L (98-107); Glucose 92 mg/dL (74-99); Non-African American GFR(CKD) 80 (>60 ml/min/1.73 sqM); Potassium 4.1 mmol/L (3.5-5.1); Sodium 137 mmol/L (137-145)
[2020-05-11] MEDS ORDERED: ONDANSETRON 4 MG/2 ML VIAL ONE (07:26)
[2020-05-11] MEDS: ATORVASTATIN 10 MG TAB PO SCH (09:41)
[2020-05-11] MEDS: LORATADINE 10 MG TAB PO SCH (09:42)
[2020-05-11] MEDS: ASPIRIN 81 MG PO SCH (09:42)
[2020-05-11] MEDS: FLUTICASONE 50MCG/SPRAY NASAL 16GM EA NOSTRIL SCH (09:43)
[2020-05-11] MEDS: PANTOPRAZOLE 40 MG TABLET PO SCH ×2 (09:43→20:50)
[2020-05-11] MEDS: CLOPIDOGREL 75 MG TAB PO SCH (09:43)
[2020-05-11] MEDS: ACETAMINOPHEN TAB 325 MG TAB PO PRN (11:47)
--- NOTE | 2020-05-11 13:48 | P.PN ---
Subjective Progress Note Date: 05/11/20 History of present illness: 89-year-old male one of my office patient with multiple medical problem known to have history of valvular heart disease post Jeanne, history of CVA and TIA, multiple fall and fracture hip in the past. [facility] with symptom of severe dizziness and nausea for the last 2 weeks become progressively worse he was started on Zofran for nausea with no relief his symptoms become much worse with vomiting several times a day ended up coming to [facility] he has been complaining of abnormal balance and gait not been able to keep any food or fluid down. 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 CT of the C-spine and the brain showed white matter change with no new finding of stroke or bleed mild arthritis of the cervical spine as well. Patient was started on hydration pantoprazole Will admit to the hospital with changes his gabapentin to once a day only from twice a day see if it can help his balance gait and dizziness also we'll keep patient on pantoprazole on Zofran as needed consult gastroenterology if patient become symptomatic by tomorrow might benefit from EGD. 05/09/2020: Patient is complaining of a headache and light sensitivity. Patient continues to have increased nausea and increased vomiting. Patient has been up to the bathroom with no complaints of syncope. Positive weakness. Gabapentin was held yesterday will be held today. Patient states he is unable to move his lower extremities and weakness. Patient is able to follow commands with legs with positive strength. Patient has been afebrile, pulse 63, respirations 16, blood pressure 147/70, 92% on room air. WAC 6.3, hemoglobin 12.1, potassium 4.3, BUN 18, creatinine 0.86 05/10/: Patient appears more confused today. Continues to have neuropathy discomfort including jitteriness. Patient states that he is not sleeping very w ell due to his legs bouncing all night. Patient was not given the gabapentin yesterday evening. Patient states that he has not had any nausea or vomiting and is starting to feel better. WC5.6, hemoglobin 12.3, potassium 4.0, BUN 16, creatinine 0.81. Patient has been afebrile. No change in orthostatic vital signs. Heart rate is 62, respirations 18, blood pressure 150/66, pulse ox 95% on room air. 05/11: Patient is seen ambulating in the hallway with physical therapy. Patient is borderline for needing subacute rehab versus home. He denies having any lightheadedness. He complains of headache across the forehead area. He states he had vomiting last evening after he took his medications. We have contacted GI and he is scheduled for EGD for tomorrow morning. Patient may benefit from s ubacute rehab and employment evaluator/case manager has been updated. She will follow up with patient and family regarding discharge plan. Right now he is set up for discharge to home with [facility]. Echocardiogram reveals EF of 50-55%, mild mitral regurgitation and mild tricuspid regurgitation. Patient has been afebrile, heart rate 62, blood pressure 156/78, pulse ox 98% on room air. Orthostatics again negative. Review of systems: CONSTITUTIONAL: Well-developed no acute respiratory distress. Denies headache. Denies dizziness. EYES: No icterus sclerae, no conjunctivitis. EARS, NOSE, MOUTH, THROAT, and FACE: No sore throat, lymphadenopathy, carotid bruits or deformity. RESPIRATORY: No SOB cough or wheezes. CARDIOVASCULAR: No CP, Palpitation, PND, Orthopnea, or angina. GASTROINTESTINAL: Denies abdominal pain no nausea or vomiting no diarrhea or constipation no GI bleed at this point GENITOURINARY: Negative for Hematuria or UTI, no kidney stones. INTEGUMENT/BREAST: Negative for any muscular injury with mild osteoarthritis.. HEMATOLOGIC/LYMPHATIC: Negative for bleed or purpura. MUSCULOSKELTAL: Reports Bilateral lower extremity weakness, Negative for Myalgia or arthralgia. NEURLOGICAL: Severe dizziness with abnormal balance and gait no sign of stroke at this point. BEHAVIORAL/PSYCH: Negative. ENDOCRINE: Negative. Physical examination General Appearance: 89-year-old male Alert, cooperative, no distress, appears stated age. Neck HEENT: Supple, no lymphadenopathy, no thyroid enlargement, no carotid bruits. Lungs: Decreased breath some bilateral fine rhonchi no crackles or wheezes. Chest Wall: Decreased expansion with deep inspiration no tenderness and no deformity was found on exam, no costochondral pain or discomfort. Heart: Regular rate and rhythm, S1, S2 normal, no murmur, soft aortic valve click with no murmur. Back: Symmetric, no curvature, ROM normal, no CVA tenderness. Abdomen: Soft but distended slight discomfort midepigastric area and mid abdominal area no rebound or rigidity. Extremities: Extremities normal, atraumatic, no cyanosis or edema. Pulses: 2+ and symmetric. Skin: Skin color, texture, tugor normal, no rashes or lesions. Neurologic: Alert oriented x3 cranial nerves II through XII intact, generalized weakness with abnormal balance and gait. Assessment and plan 1 abdominal pain with severe nausea secondary to acute severe gastritis continue pantoprazole. Gabapentin discontinued. Consult with GI for EGD for tomorrow. 2 intractable nausea: Continue Zofran and hydration. Improved 3 severe dizziness. Gabapentin and Aricept discontinued. Patient started on Requip. PT and OT evaluations. Orthostatic vital signs negative. 4 valvular heart disease: Post TAVR with severe aortic stenosis much better since his procedure, continue Plavix and aspirin. 5 severe neuropathy: Gabapentin DC'd, will start Requip 1 mg daily at bedtime 6 dementia: Mostly Alzheimer type, Hold Aricept 10 mg at this time. 7 hyperlipidemia: Remain on atorvastatin 10 mg daily. 8 BPH: Watch for any urinary retention. 9. Debility: Consult PT/OT 10 GI prophylaxis: Patient be on pantoprazole IV. 11 DVT prophylaxis: Knee-high LUDWIG hose and Venodyne boots. 12. Covid 19 pending CODE STATUS: Full code. Discharge plan: Possible subacute rehab or home with [facility] Impression and plan of care have been directed as dictated by the signing physician. Cassie Cardoso nurse practitioner acting as scribe for signing physician. Objective - Vital Signs Vital signs: Vital Signs Temp 97.8 F 05/11/20 08:02 Pulse 60 05/11/20 08:02 Resp 17 05/11/20 08:02 BP 158/78 05/11/20 08:02 Pulse Ox 98 05/11/20 08:02 Intake & Output 05/10/20 05/11/20 05/11/20 18:59 06:59 18:59 Output Total 25 Balance -25 Output: Emesis 25 Other: # Voids 5 3 - Labs CBC & Chem 7: 05/11/20 06:20 05/11/20 06:20 Labs: Abnormal Lab Results - Last 24 Hours (Table) 05/10/20 05/10/20 05/11/20 Range/Units 09:27 09:27 06:20 RBC 4.24 L (4.30-5.90) m/uL Hgb 12.3 L 12.1 L (13.0-17.5) gm/dL Hct 37.9 L 36.8 L (39.0-53.0) % Plt Count 124 L 139 L (150-450) k/uL Glucose 112 H (74-99) mg/dL Total Protein 5.9 L (6.3-8.2) g/dL Albumin 3.4 L (3.5-5.0) g/dL 05/11/20 Range/Units 06:20 RBC (4.30-5.90) m/uL Hgb (13.0-17.5) gm/dL Hct (39.0-53.0) % Plt Count (150-450) k/uL Glucose (74-99) mg/dL Total Protein 6.0 L (6.3-8.2) g/dL Albumin 3.4 L (3.5-5.0) g/dL
--- NOTE | 2020-05-11 15:39 | P.DS ---
Providers Date of admission: 05/09/20 09:07 Expected date of discharge: 05/12/20 Attending physician: Elli Darden Consults: 05/08/20 14:58 Consult Physician Urgent Consulting Provider: [facility] Consult Reason/Comments: new LBBB Do you want consulting provider notified?: Yes Consult Physician Urgent Consulting Provider: Maryjo Beyer Consult Reason/Comments: acute nausea Do you want consulting provider notified?: Yes Primary care physician: [facility] Course: 89-year-old male one of my office patient with multiple medical problem known to have history of valvular heart disease post Jeanne, history of CVA and TIA, multiple fall and fracture hip in the past. [facility] with symptom of severe dizziness and nausea for the last 2 weeks become progressively worse he was started on Zofran for nausea with no relief his symptoms become much worse with vomiting several times a day ended up coming to [facility] he has been complaining of abnormal balance and gait not been able to keep any food or fluid down. 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 CT of the C-spine and the brain showed white matter change with no new finding of stroke or bleed mild arthritis of the cervical spine as well. Patient was started on hydration pantoprazole Will admit to the hospital with changes his gabapentin to once a day only from twice a day see if it can help his balance gait and dizziness also we'll keep patient on pantoprazole on Zofran as needed consult gastroenterology if patient become symptomatic by tomorrow m ight benefit from EGD. 05/09/2020: Patient is complaining of a headache and light sensitivity. Patient continues to have increased nausea and increased vomiting. Patient has been up to the bathroom with no complaints of syncope. Positive weakness. Gabapentin was held yesterday will be held today. Patient states he is unable to move his lower extremities and weakness. Patient is able to follow commands with legs with positive strength. Patient has been afebrile, pulse 63, respirations 16, blood pressure 147/70, 92% on room air. WAC 6.3, hemoglobin 12.1, potassium 4.3, BUN 18, creatinine 0.86 05/10/: Patient appears more confused today. Continues to have neuropathy discomfort including jitteriness. Patient states that he is not sleeping very well due to his legs bouncing all night. Patient was not given the gabapentin yesterday evening. Patient states that he has not had any nausea or vomiting and is starting to feel better. WC5.6, hemoglobin 12.3, potassium 4.0, BUN 16, creatinine 0.81. Patient has been afebrile. No change in orthostatic vital signs. Heart rate is 62, respirations 18, blood pressure 150/66, pulse ox 95% on room air. 05/11: Patient is seen ambulating in the hallway with physical therapy. Patient is borderline for needing subacute rehab versus home. He denies having any lightheadedness. He complains of headache across the forehead area. He states he had vomiting last evening after he took his medications. We have contacted GI and he is scheduled for EGD for tomorrow morning. Patient may benefit from subacute rehab and case management rn has been updated. She will follow up with patient and family regarding discharge plan. Right now he is set up for discharge to home with [facility]. Echocardiogram reveals EF of 50-55%, mild mitral regurgitation and mild tricuspid regurgitation. Patient has been afebrile, heart rate 62, blood pressure 156/78, pulse ox 98% on room air. Orthostatics again negative. Patient started on Lyrica. EGD performed on May [address] Arvizu revealed long segment Raymond's esophagus extending from 2638 centimeters from the incisors status post biopsy, mild antral gastritis. Recommendations to continue Protonix 40 mg daily and anti- medics as needed. Diet advanced as tolerated. Patient discharged to [facility] in stable condition. 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 Cassie Cardoso nurse practitioner acting as scribe for signing physici an. Patient Condition at Discharge: Good Plan - Discharge Summary Discharge Rx Participant: Yes New Discharge Prescriptions: New Fluticasone Nasal Tryon [Flonase Nasal Tryon] 2 spray EA NOSTRIL DAILY spr Pregabalin [Lyrica] 50 mg PO HS #3 cap Pantoprazole [Protonix] 40 mg PO BID tablet.dr Continue Loratadine [Claritin] 10 mg PO DAILY Multivitamins, Thera [Multivitamin (formulary)] 1 tab PO DAILY Glucosam/Demarcus-Msm1/C/Ralph/Bosw [Glucosamine-Chondroitin Tablet] 1 tab PO DAILY Aspirin 81 mg PO DAILY Atorvastatin [Lipitor] 10 mg PO DAILY Ondansetron HCl [Zofran] 4 mg PO Q8H PRN PRN Reason: Nausea And Vomiting Clopidogrel [Plavix] 75 mg PO DAILY Discontinued Gabapentin [Neurontin] 300 mg PO BID Donepezil [Aricept] 10 mg PO HS Discharge Medication List Aspirin 81 mg PO DAILY 02/25/15 [History] Atorvastatin [Lipitor] 10 mg PO DAILY 02/25/15 [History] Glucosam/Demarcus-Msm1/C/Ralph/Bosw [Glucosamine-Chondroitin Tablet] 1 tab PO DAILY 02/25/15 [History] Loratadine [Claritin] 10 mg PO DAILY 02/25/15 [History] Multivitamins, Thera [Multivitamin (formulary)] 1 tab PO DAILY 02/25/15 [History] Clopidogrel [Plavix] 75 mg PO DAILY 05/08/20 [History] Ondansetron HCl [Zofran] 4 mg PO Q8H PRN 05/08/20 [History] Fluticasone Nasal Tryon [Flonase Nasal Tryon] 2 spray EA NOSTRIL DAILY spr 05/11/20 [Rx] Pantoprazole [Protonix] 40 mg PO BID tablet. 05/11/20 [Rx] Pregabalin [Lyrica] 50 mg PO HS #3 cap 05/11/20 [Rx] Follow up Appointment(s)/Referral(s): [facility], [NON-STAFF] - 1-2 Days Dino Julien MD [Primary Care Provider] - 1 Week (Cady) Patient Instructions/Handouts: Upper Endoscopy (DC) Activity/Diet/Wound Care/Special Instructions: wallet from security returned to patient Discharge Disposition: TRANSFER TO SNF/ECF
[2020-05-11] MEDS: SODIUM CHLORIDE 0.9% 1,000 ML IV SCH ×2 (20:46→20:50)
--- NOTE | 2020-05-11 20:53 | PN ---
PROGRESS NOTE DATE OF DICTATION: 05/11/2020 This patient is an 89-year-old pleasant white male admitted to the hospital with persistent nausea, vomiting, not feeling well and lightheadedness for the last few days. He is feeling better today. He was able to tolerate a regular diet well. His nausea is improving, but apparently while he was taking his medications he threw up twice. He denies any other new symptoms. PHYSICAL EXAMINATION: Blood pressure is 137/76, pulse rate 67, temperature 98. HEENT examination unremarkable. Conjunctivae pink. Sclerae anicteric. Oral cavity no lesions. NECK: No JVD or lymph node enlargement. CHEST: Clear to auscultation. HEART: Regular rate and rhythm. ABDOMEN: Soft. Bowel sounds are positive. No organomegaly. EXTREMITIES: No pedal edema. SKIN: No rashes. NEUROLOGIC: Alert and oriented to name and place. LABS: WBC 6.3, hemoglobin 12.1, platelets normal. Basic metabolic panel is within normal limits. IMPRESSION: 1. Persistent abdominal discomfort with nausea and vomiting which are gradually improving but not completely resolved. On Protonix as well as Zofran. 2. Lightheadedness, improving. 3. History of dementia. 4. Hypertension and hyperlipidemia. RECOMMENDATIONS: 1. Continue with Protonix and Zofran. 2. Will proceed with an EGD tomorrow because of the persistent symptoms. 3. Symptomatic supportive care. 4. Continue rest of his medications. 5. Will follow with you closely. Thank you for this consultation. MMODL / IJN: [id number] /
[2020-05-11] MEDS ORDERED: PREGABALIN 50 MG CAP PO SCH (21:00)
[2020-05-12] MEDS: FLUTICASONE 50MCG/SPRAY NASAL 16GM EA NOSTRIL SCH (01:47)
[2020-05-12] MEDS: ASPIRIN 81 MG PO SCH (07:09)
[2020-05-12] MEDS: ACETAMINOPHEN TAB 325 MG TAB PO PRN (07:25)
[2020-05-12] MEDS: ATORVASTATIN 10 MG TAB PO SCH (08:25)
[2020-05-12] MEDS: LORATADINE 10 MG TAB PO SCH (08:26)
[2020-05-12] MEDS: CLOPIDOGREL 75 MG TAB PO SCH (08:26)
[2020-05-12] MEDS: PANTOPRAZOLE 40 MG TABLET PO SCH (08:26)
[2020-05-12] MEDS: SODIUM CHLORIDE 0.9% 1,000 ML IV SCH (11:22)
[2020-05-12] MEDS ORDERED: IV FLUID CONTINUATION 1,000 ML IV ONE (12:15)
[2020-05-12] MEDS ORDERED: LIDOCAINE 1% INJ 10MG/ML (20 ML MDV) ONE (13:55)
[2020-05-12] MEDS ORDERED: PROPOFOL 10 MG/ML 20 ML VIAL IV ONE (13:55)
[2020-05-12] MEDS ORDERED: LACTATED RINGERS 1,000 ML IV ONE (13:59)
--- NOTE | 2020-05-12 14:28 | P.PCN ---
Date of Procedure: 05/12/20 Procedure(s) Performed: BRIEF HISTORY: Patient is a 89-year-old, pleasant, white male admitted hospital with persistent nausea with occasional emesis for the last 2 week duration. He was started on Zofran and Protonix with some improvement in his symptoms. He scheduled for an upper endoscopy to rule out upper GI pathology. PROCEDURE PERFORMED: Esophagogastroduodenoscopy with biopsy. PREOPERATIVE DIAGNOSIS: Persistent nausea and intermittent episodes of emesis for the last 2 weeks' duration. IV sedation per anesthesia. PROCEDURE: After informed consent was obtained, the patient was brought into the endoscopy unit. IV sedation was administered by Anesthesia under continuous monitoring. Initially the Olympus GIF-140 video endoscope was inserted into the mouth. Esophagus intubated without any difficulty. It was gradually advanced into the stomach and duodenum and carefully examined. The bulb and the second part of the duodenum appeared normal. The scope at this time was withdrawn to the stomach, adequately insufflated with air, and upon careful examination, mucosa of the antrum, had mild gastritis and biopsies were done from this area. body, cardia and the fundus appeared normal. The scope was then withdrawn into the esophagus. The GE junction was located at 39 cm from the incisors. There was a long segment of Raymond's esophagus extending from 86-38 cm from the incisors and multiple biopsies were done from this area. The rest of the esophagus appeared normal. There were no erosions or ulcerations seen and the patient tolerated the procedure well. IMPRESSION: 1. Long segment Raymond's esophagus extending from 26-38 cm from the incisors status post biopsy. 2. Mild antral gastritis. RECOMMENDATIONS: The findings of this examination were discussed with the patient. He was advised to follow with the biopsy results. For now he will continue with Protonix 40 mg daily and antiemetics as needed. Diet will be advanced as tolerated.
[2020-05-12 16:56] VITALS: RESP 16
[2020-05-12 16:57] VITALS: TEMP 97.9
[2020-05-12 16:58] VITALS: BP 158/78; PULSE 52
== END 2020-05-12 17:44 | DRG 392 ==
LOC: EC 11:41 → 1SOBS 14:56 → OBSVTOIN 05-09 09:07 → 4SSUR 05-09 15:15
PROVIDERS: ADMIT Family Medicine; ATTEND Family Medicine
PROC: 0DB78ZX Excision of Stomach, Pylorus, Via Natural or Artificial Opening Endoscopic, Diagnostic (ICD-10-PCS; principal; 2020-05-12 12:00)
DX: K29.70 Gastritis, unspecified, without bleeding (principal); J98.11 Atelectasis; R51 Headache; M19.90 Unspecified osteoarthritis, unspecified site; G89.29 Other chronic pain; M54.9 Dorsalgia, unspecified; I44.7 Left bundle-branch block, unspecified; I71.4 Abdominal aortic aneurysm, without rupture; K21.9 Gastro-esophageal reflux disease without esophagitis; G62.9 Polyneuropathy, unspecified; I10 Essential (primary) hypertension; Z11.59 Encounter for screening for other viral diseases; Z96.653 Presence of artificial knee joint, bilateral; N40.0 Benign prostatic hyperplasia without lower urinary tract symptoms; Z96.641 Presence of right artificial hip joint; E78.5 Hyperlipidemia, unspecified; G30.9 Alzheimer's disease, unspecified; F02.80 Dementia in other diseases classified elsewhere, unspecified severity, without behavioral disturbance, psychotic disturbance, mood disturbance, and anxiety; R53.81 Other malaise; K57.90 Diverticulosis of intestine, part unspecified, without perforation or abscess without bleeding; I08.1 Rheumatic disorders of both mitral and tricuspid valves; K22.70 Barrett's esophagus without dysplasia; M50.30 Other cervical disc degeneration, unspecified cervical region; M48.02 Spinal stenosis, cervical region; Z79.82 Long term (current) use of aspirin; Z86.73 Personal history of transient ischemic attack (TIA), and cerebral infarction without residual deficits; Z79.02 Long term (current) use of antithrombotics/antiplatelets; Z79.899 Other long term (current) drug therapy; Z88.5 Allergy status to narcotic agent; Z98.890 Other specified postprocedural states; Z90.89 Acquired absence of other organs; Z87.891 Personal history of nicotine dependence; Z80.3 Family history of malignant neoplasm of breast; Z81.2 Family history of tobacco abuse and dependence; Z83.79 Family history of other diseases of the digestive system; Z91.81 History of falling; Z87.81 Personal history of (healed) traumatic fracture; Z95.2 Presence of prosthetic heart valve; Z90.49 Acquired absence of other specified parts of digestive tract; Z87.11 Personal history of peptic ulcer disease; Z82.5 Family history of asthma and other chronic lower respiratory diseases
CPT/HCPCS: 36415; 43239; 70450; 71046; 72125; 74177; 80053; 81003; 83605; 83690; 84443; 84484; 85025; 85610; 87635; 93005; 93306; 96361; 96374; 99285

== ENCOUNTER 2020-08-28 12:06 | Emergency (ER) | payer MEDICARE ==
[2020-08-28] MEDS ORDERED: OXYMETAZOLINE 0.05% NASL SPRAY 1 SPRAY BOTTLE NASAL STA (12:56)
--- NOTE | 2020-08-28 13:44 | ED ---
General Adult HPI - General Chief complaint: ENT Stated complaint: epistaxis Time Seen by Provider: 08/28/20 12:41 Source: patient, RN notes reviewed Mode of arrival: ambulatory Limitations: no limitations - History of Present Illness Initial comments: 89-year-old male with a past medical history of shortness of breath, chronic back pain, CVA, heart murmur presents to the emergency department for a chief complaint of nosebleed. Patient states she has had white nosebleeding for about 2 hours this morning. States he knows the tissue in his nose but has stopped it. Patient denies any blood in the back of his throat. Denies any bleeding elsewhere. Denies any lightheadedness. States it was only bleeding out of one side of the nose.Patient has no other complaints at this time including shortness of breath, chest pain, abdominal pain, nausea or vomiting, headache, or visual changes. - Related Data Home Medications Medication Instructions Recorded Confirmed Aspirin 81 mg PO DAILY 02/25/15 05/08/20 Atorvastatin [Lipitor] 10 mg PO DAILY 02/25/15 05/08/20 Glucosam/Demarcus-Msm1/C/Ralph/Bosw 1 tab PO DAILY 02/25/15 05/08/20 [Glucosamine-Chondroitin Tablet] Loratadine [Claritin] 10 mg PO DAILY 02/25/15 05/08/20 Multivitamins, Thera [Multivitamin 1 tab PO DAILY 02/25/15 05/08/20 (formulary)] Clopidogrel [Plavix] 75 mg PO DAILY 05/08/20 05/08/20 Ondansetron HCl [Zofran] 4 mg PO Q8H PRN 05/08/20 05/08/20 Previous Rx's Medication Instructions Recorded Fluticasone Nasal [place] [Flonase 2 spray EA NOSTRIL DAILY spr 05/11/20 Nasal [place]] Pantoprazole [Protonix] 40 mg PO BID tablet. 05/11/20 Pregabalin [Lyrica] 50 mg PO HS #3 cap 05/11/20 Allergies Allergy/AdvReac Type Severity Reaction Status Date / Time morphine AdvReac Hallucinati Verified 08/28/20 12:28 ons Review of Systems ROS Statement: Those systems with pertinent positive or pertinent negative responses have been documented in the HPI. ROS Other: All systems not noted in ROS Statement are negative. Past Medical History Past Medical History: CVA/TIA, Osteoarthritis (OA) Additional Past Medical History / Comment(s): HEART MURMUR, CVA RT EYE, SOB chronic back pain History of Any Multi-Drug Resistant Organisms: None Reported Past Surgical History: Appendectomy, Heart Catheterization, Joint Replacement, Orthopedic Surgery, Tonsillectomy Additional Past Surgical History / Comment(s): RT HIP REPLACEMENT,RT KNEE REPLACEMENT, EDISON KNEE ARTHROSCOPY,HAND SURGERY Past Anesthesia/Blood Transfusion Reactions: Motion Sickness Additional Past Anesthesia/Blood Transfusion Reaction / Comment(s): HAS HAD HARD TIME COMING OUT OF ANESTHESIA Past Psychological History: No Psychological Hx Reported Smoking Status: Former smoker Past Alcohol Use History: None Reported Past Drug Use History: None Reported - Past Family History Mother Family Medical History: Respiratory Disorder Additional Family Medical History / Comment(s): Mother from a lung fungal infection at the age of 74 yrs. Father Family Medical History: Respiratory Disorder Additional Family Medical History / Comment(s): Father was a smoker and had work related fume exposure. He had a stomach ulcer. Sister(s) Family Medical History: Cancer Additional Family Medical History / Comment(s): BREAST Brother(s) Family Medical History: Cancer General Exam Limitations: no limitations General appearance: alert, in no apparent distress Head exam: Present: atraumatic, normocephalic, normal inspection Eye exam: Present: normal appearance, PERRL, EOMI. Absent: scleral icterus, conjunctival injection, periorbital swelling ENT exam: Present: normal oropharynx (No blood in the oropharynx), mucous membranes moist, TM's normal bilaterally, normal external ear exam, other (Minimal bleeding from the right nare, no area for cautery) Neck exam: Present: normal inspection, full ROM. Absent: tenderness, meningismus, lymphadenopathy Respiratory exam: Present: normal lung sounds bilaterally. Absent: respiratory distress, wheezes, rales, rhonchi, stridor Cardiovascular Exam: Present: regular rate, normal rhythm, normal heart sounds. Absent: systolic murmur, diastolic murmur, rubs, gallop, clicks Course Vital Signs 08/28/20 12:25 Temperature 98.2 F Pulse Rate 74 Respiratory 16 Rate Blood Pressure 127/71 O2 Sat by Pulse 98 Oximetry Medical Decision Making - Medical Decision Making Vitals are stable. Patient is not hypertensive. Minimal bleeding. Afrin was applied and nose discomfort 20 minutes. He was then ambulated around the department. Hemostasis is achieved. No bleeding. At this time he can be discharged home to follow up with primary care. I will also give him follow-up to ENT. He is to return here for any worsening symptoms. Disposition Clinical Impression: Nosebleed Disposition: HOME SELF-CARE Condition: Good Instructions (If sedation given, give patient instructions): Nosebleed (ED) Additional Instructions: If bleeding recurs spray 2 sprays of Afrin in each nostril and clamp for 15 minutes. If bleeding does not resolve repeat this process one more time. If bleeding still does not resolve return to the emergency room. Follow-up with your doctor or ENT. Return to the emergency room for any worsening symptoms. Is patient prescribed a controlled substance at d/c from ED?: No Referrals: Dino Julien MD [Primary Care Provider] - 1-2 days Dwain Valera MD [STAFF PHYSICIAN] - 1-2 days Time of Disposition: 13:43
[2020-08-28 13:48] VITALS: BP 124/77; PULSE 70; RESP 18; TEMP 98
== END 2020-08-28 13:50 | disposition home or self-care (01) ==
LOC: EC 12:06
DX: R04.0 Epistaxis (principal); M19.90 Unspecified osteoarthritis, unspecified site; Z79.82 Long term (current) use of aspirin; Z79.02 Long term (current) use of antithrombotics/antiplatelets; Z79.899 Other long term (current) drug therapy; Z87.891 Personal history of nicotine dependence; Z88.5 Allergy status to narcotic agent; Z86.73 Personal history of transient ischemic attack (TIA), and cerebral infarction without residual deficits; Z95.5 Presence of coronary angioplasty implant and graft; Z96.641 Presence of right artificial hip joint; Z96.651 Presence of right artificial knee joint
CPT/HCPCS: 99283

== ENCOUNTER 2021-03-04 15:24 | Emergency (ER) | payer MEDICARE ==
[2021-03-04 15:30] VITALS: RESP 18; TEMP 98.2
[2021-03-04] MEDS ORDERED: SODIUM CHLORIDE 0.9% 1,000 ML IV STA (16:42)
[2021-03-04] MEDS ORDERED: ONDANSETRON 4 MG/2 ML VIAL IVP STA (16:42)
--- NOTE | 2021-03-04 17:33 | ED ---
Weakness HPI - General Chief complaint: Weakness Stated complaint: Weakness,SOB Time Seen by Provider: 03/04/21 15:35 Source: patient Mode of arrival: ambulatory Limitations: no limitations - History of Present Illness Initial comments: 89-year-old male patient presents to the emergency department today for evaluation of weakness, cough, shortness of breath. Patient states his been going on for the last week. States worsening over the last 2-3 days. He states that he is coughing up some sputum. Denies fever or chills. Denies any nausea or vomiting but states she's had decreased appetite. Denies any abdominal pain, constipation, diarrhea. Denies any hematuria, dysuria, urinary frequency, urinary urgency. Denies any chest pain, dizziness, or unilateral weakness. States the weakness is generalized and seems to be worsening. Denies any new medications. Patient denies any recent rash, constipation, back pain, numbness, tingling, dizziness, weakness, headache, visual changes, or any other complaints. - Related Data Home Medications Medication Instructions Recorded Confirmed Aspirin 81 mg PO DAILY 02/25/15 03/04/21 Atorvastatin [Lipitor] 10 mg PO HS 02/25/15 03/04/21 Glucosam/Demarcus-Msm1/C/Ralph/Bosw 1 tab PO DAILY 02/25/15 03/04/21 [Glucosamine-Chondroitin Tablet] Clopidogrel [Plavix] 75 mg PO DAILY 05/08/20 03/04/21 Ondansetron HCl [Zofran] 4 mg PO Q8H PRN 05/08/20 03/04/21 Cefuroxime [Ceftin] 250 mg PO BID 03/04/21 03/04/21 Cetirizine HCl 10 mg PO DAILY 03/04/21 03/04/21 Donepezil [Aricept] 10 mg PO HS 03/04/21 03/04/21 Meclizine [Antivert] 25 mg PO DIRECTED PRN 03/04/21 03/04/21 Triamcinolone Acetonide [Nasacort] 1 spray EA NOSTRIL BID PRN 03/04/21 03/04/21 Previous Rx's Medication Instructions Recorded Pantoprazole [Protonix] 40 mg PO BID tablet. 05/11/20 Allergies Allergy/AdvReac Type Severity Reaction Status Date / Time doxycycline Allergy Swelling Verified 03/04/21 16:52 morphine AdvReac Hallucinati Verified 03/04/21 16:52 ons/Nausea Review of Systems ROS Statement: Those systems with pertinent positive or pertinent negative responses have been documented in the HPI. ROS Other: All systems not noted in ROS Statement are negative. Past Medical History Past Medical History: CVA/TIA, Osteoarthritis (OA) Additional Past Medical History / Comment(s): HEART MURMUR, CVA RT EYE, SOB chronic back pain History of Any Multi-Drug Resistant Organisms: None Reported Past Surgical History: Appendectomy, Heart Catheterization, Joint Replacement, Orthopedic Surgery, Tonsillectomy Additional Past Surgical History / Comment(s): RT HIP REPLACEMENT,RT KNEE REPLACEMENT, EDISON KNEE ARTHROSCOPY,HAND SURGERY Past Anesthesia/Blood Transfusion Reactions: Motion Sickness Additional Past Anesthesia/Blood Transfusion Reaction / Comment(s): HAS HAD HARD TIME COMING OUT OF ANESTHESIA Past Psychological History: No Psychological Hx Reported Smoking Status: Former smoker Past Alcohol Use History: None Reported Past Drug Use History: None Reported - Past Family History Mother Family Medical History: Respiratory Disorder Additional Family Medical History / Comment(s): Mother from a lung fungal infection at the age of 74 yrs. Father Family Medical History: Respiratory Disorder Additional Family Medical History / Comment(s): Father was a smoker and had work related fume exposure. He had a stomach ulcer. Sister(s) Family Medical History: Cancer Additional Family Medical History / Comment(s): BREAST Brother(s) Family Medical History: Cancer General Exam Limitations: no limitations General appearance: alert, in no apparent distress, other (Physical well- developed, well-nourished 89-year-old male patient. Vital signs upon p resentation are temperature 98.2F, pulse 63, respirations 18, blood pressure 154/88, pulse ox 97% on room air.) Eye exam: Present: normal appearance, PERRL, EOMI. Absent: scleral icterus, conjunctival injection, nystagmus, periorbital swelling ENT exam: Present: normal exam, normal oropharynx, mucous membranes moist Respiratory exam: Present: normal lung sounds bilaterally. Absent: respiratory distress, wheezes, rales, rhonchi, stridor Cardiovascular Exam: Present: regular rate, normal rhythm, normal heart sounds. Absent: systolic murmur, diastolic murmur, rubs, gallop, clicks GI/Abdominal exam: Present: soft, normal bowel sounds. Absent: distended, tenderness, guarding, rebound, rigid Neurological exam: Present: alert, oriented X3, CN II-XII intact Expanded Speech: Present: fluid speech Cranial nerves: EOM's Intact: Normal Motor strength exam: RUE: 4, LUE: 4, RLE: 4, LLE: 4 Psychiatric exam: Present: normal affect, normal mood Skin exam: Present: warm, dry, intact, normal color. Absent: rash Course Vital Signs 03/04/21 03/04/21 03/04/21 15:25 16:30 17:00 Temperature 98.2 F Pulse Rate 63 71 64 Respiratory 18 18 18 Rate Blood Pressure 154/88 147/82 O2 Sat by Pulse 97 100 100 Oximetry 03/04/21 03/04/21 18:00 19:00 Temperature Pulse Rate 64 66 Respiratory 18 18 Rate Blood Pressure 150/82 O2 Sat by Pulse 100 100 Oximetry EKG Findings - EKG Comments: EKG Findings:: EKG obtained at 1539 shows normal sinus rhythm with a left bundle branch block. Ventricular rate is 61, CO interval 178, QRS duration 142, QTc 490, QTC 493. Bundle branch block is not new, as on previous EKGs. Medical Decision Making - Medical Decision Making 89-year-old male patient presents to the emergency department today for evaluation of nausea, cough, and shortness of breath. He is also reporting some weakness. Physical examination is unremarkable. Lungs are clear to auscultation with good air movement. He is neurologically intact no focal deficits. Abdomen is soft and nontender. Labs reviewed and are unremarkable. Urinalysis shows no sign of infection. Chest x-ray was negative. EKG was unremarkable. I did discuss findings and results with the patient. He does have comfortable being discharged home at this time. He will call his physician in the morning for further instructions and to obtain an appointment. Return parameters were discussed in detail. He verbalizes understanding and agrees with this plan. Case discussed with my attending Dr. Malone. - Lab Data Result diagrams: 03/04/21 17:36 03/04/21 17:36 Lab Results 03/04/21 03/04/21 03/04/21 Range/Units 17:36 17:36 17:36 WBC 8.2 (3.8-10.6) k/uL RBC 4.51 (4.30-5.90) m/uL Hgb 13.2 (13.0-17.5) gm/dL Hct 38.9 L (39.0-53.0) % MCV 86.2 (80.0-100.0) fL MCH 29.2 (25.0-35.0) pg MCHC 33.8 (31.0-37.0) g/dL RDW 12.7 (11.5-15.5) % Plt Count 173 (150-450) k/uL MPV 7.2 Neutrophils % 71 % Lymphocytes % 17 % Monocytes % 6 % Eosinophils % 4 % Basophils % 1 % Neutrophils # 5.8 (1.3-7.7) k/uL Lymphocytes # 1.4 (1.0-4.8) k/uL Monocytes # 0.5 (0-1.0) k/uL Eosinophils # 0.3 (0-0.7) k/uL Basophils # 0.1 (0-0.2) k/uL PT 10.5 (9.0-12.0) sec INR 1.0 (<1.2) APTT 22.8 (22.0-30.0) sec Sodium 139 (137-145) mmol/L Potassium 4.3 (3.5-5.1) mmol/L Chloride 105 (98-107) mmol/L Carbon Dioxide 28 (22-30) mmol/L Anion Gap 6 mmol/L BUN 32 H (9-20) mg/dL Creatinine 0.83 (0.66-1.25) mg/dL Est GFR (CKD-EPI)AfAm >90 (>60 ml/min/1.73 sqM) Est GFR (CKD-EPI)NonAf 79 (>60 ml/min/1.73 sqM) Glucose 95 (74-99) mg/dL Plasma Lactic Acid Dirk (0.7-2.0) mmol/L Calcium 9.5 (8.4-10.2) mg/dL Magnesium 2.0 (1.6-2.3) mg/dL Total Bilirubin 0.4 (0.2-1.3) mg/dL AST 26 (17-59) U/L ALT 14 (4-49) U/L Alkaline Phosphatase 81 (38-126) U/L Troponin I (0.000-0.034) ng/mL Total Protein 6.6 (6.3-8.2) g/dL Albumin 3.9 (3.5-5.0) g/dL Urine Color Urine Appearance (Clear) Urine pH (5.0-8.0) Ur Specific [place] (1.001-1.035) Urine Protein (Negative) Urine Glucose (UA) (Negative) Urine Ketones (Negative) Urine Blood (Negative) Urine Nitrite (Negative) Urine Bilirubin (Negative) Urine Urobilinogen (<2.0) mg/dL Ur Leukocyte Esterase (Negative) Coronavirus (PCR) (Not Detectd) 03/04/21 03/04/21 03/04/21 Range/Units 17:36 17:36 17:45 WBC (3.8-10.6) k/uL RBC (4.30-5.90) m/uL Hgb (13.0-17.5) gm/dL Hct (39.0-53.0) % MCV (80.0-100.0) fL MCH (25.0-35.0) pg MCHC (31.0-37.0) g/dL RDW (11.5-15.5) % Plt Count (150-450) k/uL MPV Neutrophils % % Lymphocytes % % Monocytes % % Eosinophils % % Basophils % % Neutrophils # (1.3-7.7) k/uL Lymphocytes # (1.0-4.8) k/uL Monocytes # (0-1.0) k/uL Eosinophils # (0-0.7) k/uL Basophils # (0-0.2) k/uL PT (9.0-12.0) sec INR (<1.2) APTT (22.0-30.0) sec Sodium (137-145) mmol/L Potassium (3.5-5.1) mmol/L Chloride (98-107) mmol/L Carbon Dioxide (22-30) mmol/L Anion Gap mmol/L BUN (9-20) mg/dL Creatinine (0.66-1.25) mg/dL Est GFR (CKD-EPI)AfAm (>60 ml/min/1.73 sqM) Est GFR (CKD-EPI)NonAf (>60 ml/min/1.73 sqM) Glucose (74-99) mg/dL Plasma Lactic Acid Dirk 1.3 (0.7-2.0) mmol/L Calcium (8.4-10.2) mg/dL Magnesium (1.6-2.3) mg/dL Total Bilirubin (0.2-1.3) mg/dL AST (17-59) U/L ALT (4-49) U/L Alkaline Phosphatase (38-126) U/L Troponin I <0.012 (0.000-0.034) ng/mL Total Protein (6.3-8.2) g/dL Albumin (3.5-5.0) g/dL Urine Color Yellow Urine Appearance Clear (Clear) Urine pH 6.0 (5.0-8.0) Ur Specific [place] 1.023 (1.001-1.035) Urine Protein Trace H (Negative) Urine Glucose (UA) Negative (Negative) Urine Ketones Negative (Negative) Urine Blood Negative (Negative) Urine Nitrite Negative (Negative) Urine Bilirubin Negative (Negative) Urine Urobilinogen <2.0 (<2.0) mg/dL Ur Leukocyte Esterase Negative (Negative) Coronavirus (PCR) (Not Detectd) 03/04/21 Range/Units 17:45 WBC (3.8-10.6) k/uL RBC (4.30-5.90) m/uL Hgb (13.0-17.5) gm/dL Hct (39.0-53.0) % MCV (80.0-100.0) fL MCH (25.0-35.0) pg MCHC (31.0-37.0) g/dL RDW (11.5-15.5) % Plt Count (150-450) k/uL MPV Neutrophils % % Lymphocytes % % Monocytes % % Eosinophils % % Basophils % % Neutrophils # (1.3-7.7) k/uL Lymphocytes # (1.0-4.8) k/uL Monocytes # (0-1.0) k/uL Eosinophils # (0-0.7) k/uL Basophils # (0-0.2) k/uL PT (9.0-12.0) sec INR (<1.2) APTT (22.0-30.0) sec Sodium (137-145) mmol/L Potassium (3.5-5.1) mmol/L Chloride (98-107) mmol/L Carbon Dioxide (22-30) mmol/L Anion Gap mmol/L BUN (9-20) mg/dL Creatinine (0.66-1.25) mg/dL Est GFR (CKD-EPI)AfAm (>60 ml/min/1.73 sqM) Est GFR (CKD-EPI)NonAf (>60 ml/min/1.73 sqM) Glucose (74-99) mg/dL Plasma Lactic Acid [place] (0.7-2.0) mmol/L Calcium (8.4-10.2) mg/dL Magnesium (1.6-2.3) mg/dL Total Bilirubin (0.2-1.3) mg/dL AST (17-59) U/L ALT (4-49) U/L Alkaline Phosphatase (38-126) U/L Troponin I (0.000-0.034) ng/mL Total Protein (6.3-8.2) g/dL Albumin (3.5-5.0) g/dL Urine Color Urine Appearance (Clear) Urine pH (5.0-8.0) Ur Specific [place] (1.001-1.035) Urine Protein (Negative) Urine Glucose (UA) (Negative) Urine Ketones (Negative) Urine Blood (Negative) Urine Nitrite (Negative) Urine Bilirubin (Negative) Urine Urobilinogen (<2.0) mg/dL Ur Leukocyte Esterase (Negative) Coronavirus (PCR) Not Detected (Not Detectd) - Radiology Data Radiology results: report reviewed, image reviewed Two-view x-ray of the chest shows no acute process. Disposition Clinical Impression: Weakness, Nausea, Cough Disposition: HOME SELF-CARE Condition: Good Instructions (If sedation given, give patient instructions): Acute Nausea and Vomiting (ED), Weakness (ED), Shortness of Breath (ED) Additional Instructions: Stick to a bland diet. Call your primary care physician for further instructions in the morning. Return to the emergency department for any new, worsening, or concerning symptoms. Is patient prescribed a controlled substance at d/c from ED?: No Referrals: Dino Julien MD [Primary Care Provider] - 1-2 days Time of Disposition: 19:22
[2021-03-04 17:47] LABS: Basophils # (A) 0.1 k/uL (0-0.2); Basophils % (A) 1 %; Eosinophils # (A) 0.3 k/uL (0-0.7); Eosinophils % (A) 4 %; HCT 38.9 % (39.0-53.0); HGB 13.2 gm/dL (13.0-17.5); Lymphocytes # (A) 1.4 k/uL (1.0-4.8); Lymphocytes % (A) 17 %; MCH 29.2 pg (25.0-35.0); MCHC 33.8 g/dL (31.0-37.0); MCV 86.2 fL (80.0-100.0); Mean Platelet Volume 7.2; Monocytes # (A) 0.5 k/uL (0-1.0); Monocytes % (A) 6 %; Neutrophils # (A) 5.8 k/uL (1.3-7.7); Neutrophils % (A) 71 %; Platelet Count 173 k/uL (150-450); RBC 4.51 m/uL (4.30-5.90); RDW 12.7 % (11.5-15.5); WBC 8.2 k/uL (3.8-10.6)
[2021-03-04 17:56] LABS: ALT 14 U/L (4-49); AST 26 U/L (17-59); African American GFR (CKD) >90 (>60 ml/min/1.73 sqM); Albumin 3.9 g/dL (3.5-5.0); Alkaline Phosphatase 81 U/L (38-126); Anion Gap 6 mmol/L; Blood Urea Nitrogen 32 mg/dL (9-20); Calcium 9.5 mg/dL (8.4-10.2); Carbon Dioxide 28 mmol/L (22-30); Chloride 105 mmol/L (98-107); Glucose 95 mg/dL (74-99); Non-African American GFR(CKD) 79 (>60 ml/min/1.73 sqM); Potassium 4.3 mmol/L (3.5-5.1); Sodium 139 mmol/L (137-145); Total Bilirubin 0.4 mg/dL (0.2-1.3); Total Protein 6.6 g/dL (6.3-8.2)
[2021-03-04 17:57] LABS: Partial Thromboplastin Time 22.8 sec (22.0-30.0); Prothrombin Time 10.5 sec (9.0-12.0)
[2021-03-04 17:59] LABS: Appearance,Urine Clear (Clear); Bilirubin,Urine Negative (Negative); Blood,Urine Negative (Negative); Color,Urine Yellow; Glucose,Urine (UA) Negative (Negative); Ketones,Urine Negative (Negative); Leukocyte Esterase,Urine Negative (Negative); Nitrite,Urine Negative (Negative); Protein,Urine Trace (Negative); Specific Gravity,Urine 1.023 (1.001-1.035); Urobilinogen,Urine <2.0 mg/dL (<2.0)
--- NOTE | 2021-03-04 18:27 | XR ---
EXAMINATION: XR chest 2V DATE AND TIME: 03/04/2021 5:54 PM CLINICAL INDICATION: PHH; Weakness TECHNIQUE: Departmental protocol COMPARISON: 05/08/2020 FINDINGS: The lungs are clear. The pleural spaces are negative. The cardiac silhouette is not enlarged. 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 The remainder of the mediastinal silhouette is unremarkable. The skeletal structures and soft tissues are negative for acute findings. IMPRESSION: NO ACUTE PROCESS.
[2021-03-04 19:05] VITALS: BP 150/82; PULSE 66
== END 2021-03-04 19:37 | disposition home or self-care (01) ==
LOC: EC 15:24
DX: R53.1 Weakness (principal); R11.0 Nausea; R05 Cough; R06.02 Shortness of breath; M19.90 Unspecified osteoarthritis, unspecified site; Z20.822 Contact with and (suspected) exposure to COVID-19; Z86.73 Personal history of transient ischemic attack (TIA), and cerebral infarction without residual deficits; Z87.891 Personal history of nicotine dependence; Z79.02 Long term (current) use of antithrombotics/antiplatelets; Z79.82 Long term (current) use of aspirin; Z79.899 Other long term (current) drug therapy; Z88.5 Allergy status to narcotic agent; Z96.641 Presence of right artificial hip joint
CPT/HCPCS: 36415; 93005; 80053; 83605; 83735; 84484; 85025; 85610; 85730; 81003; 87635; 71046; 99285; 96374; 96361; J2405

== ENCOUNTER → 2021-04-26 | Outpatient (CLI) | payer MEDICARE ==
--- NOTE | 2021-04-26 17:23 | ECHOF ---
Referral Reason:I25.118 coronary artery disease MEASUREMENTS -------- HEIGHT: 182.9 cm WEIGHT: 77.1 kg BP: RVIDd: 2.7 cm (< 3.3) IVSd: 1.1 cm (0.6 - 1.1) LVIDd: 4.2 cm (3.9 - 5.3) LVPWd: 1.2 cm (0.6 - 1.1) IVSs: 1.7 cm LVIDs: 3.1 cm LVPWs: 1.5 cm LA Diam: 3.2 cm (2.7 - 3.8) Ao Diam: 2.7 cm (2.0 - 3.7) MV E Matt: 0.79 m/s MV DecT: 439 ms MV A Matt: 1.48 m/s MV E/A Ratio: 0.54 AV maxP.73 mmHg AV meanP.45 mmHg FINDINGS -------- Sinus rhythm. The left ventricular size is normal. There is borderline concentric left ventricular hypertrophy. Overall left ventricular systolic function is normal with, an EF between 60 - 65 %. The right ventricle is normal in size. The left atrium is normal in size. The right atrium is normal in size. Lumason used Peak/mean gradient across the Aortic Valve is 18.73mmHg / 9.45mmHg. TAVR procedure done Mild mitral annular calcification present. There is trace mitral regurgitation. The tricuspid valve appears structurally normal. The pulmonic valve was not well visualized. The aortic root size is normal. IVC Not well visulized. There is no pericardial effusion. CONCLUSIONS -------- 1. The left ventricular size is normal. 2. There is borderline concentric left ventricular hypertrophy. 3. Overall left ventricular systolic function is normal with, an EF between 60 - 65 %. 4. Lumason used 5. Peak/mean gradient across the Aortic Valve is 18.73mmHg / 9.45mmHg. 6. TAVR procedure done 7. Mild mitral annular calcification present. 8. There is trace mitral regurgitation. 9. There is no pericardial effusion. HAND PACKAGER: More Louis RDCS
== END | disposition home or self-care (01) ==
LOC: RADECHMAIN 13:59
PROVIDERS: ATTEND Internal Medicine Geriatric Medicine
DX: I34.0 Nonrheumatic mitral (valve) insufficiency (principal)
CPT/HCPCS: C8929; Q9950; 93306

== ENCOUNTER → 2021-06-02 | Outpatient (CLI) | payer MEDICARE ==
--- NOTE | 2021-06-02 15:36 | CT ---
EXAMINATION TYPE: CT iac w con DATE OF EXAM: 06/02/2021 COMPARISON: CT brain 05/08/2020 HISTORY: 89-year-old male H70.90, unspecified mastoiditis. Right ear irritation and pain. CT DLP: 142.7 mGycm Automated exposure control for dose reduction was used. TECHNIQUE: Contiguous high-resolution axial scanning of the temporal bones performed with IV Contras t, patient injected with 100 mL of Isovue M300. Coronal reformatted images obtained. 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 The visualized dural venous sinuse s are patent. There is no cerebellopontine angle mass identified by contrast enhanced CT. The skull base appears normal. The external auditory canals are patent. Minimal punctate debris along the roof of the middle third l eft external auditory canal, axial image 35 and coronal image 33. The middle ear cavities and mastoid air cells are well pneumatized There is no abnormality of middle ear ossicles. The round and oval windows are normal. There is no abnormality of bony labyrinths. No dehiscence of the superior semicircular canals. Some o pacification noted of the petrous apices. The vestibular and cochlear aqueducts are well visualized. The facial nerve canal is normal bilaterally. The internal auditory canal and meati are symmetrical bilaterally. There is no evidence of fractures. Paranasal sinuses are clear. Reformatted images confirm above findings. IMPRESSION: 1. Minimal punctate debris along the roof of the middle third left external auditory canal. 2. Otherwise, unremarkable temporal bone CT. The middle ear cavities and mastoid air cells are clear.
== END | disposition home or self-care (01) ==
LOC: RADCTMAIN 11:57
PROVIDERS: ATTEND Internal Medicine Geriatric Medicine
DX: H70.90 Unspecified mastoiditis, unspecified ear (principal)
CPT/HCPCS: 82565; 84520; 70481; 36415; Q9967

== ENCOUNTER 2021-10-01 10:24 | Inpatient (IN) | payer MEDICARE ==
[2021-10-01] MEDS ORDERED: HYDROmorphone 0.5 MG/0.5 ML SYRINGE IM STA ×2 (11:11→13:14)
[2021-10-01] MEDS ORDERED: ONDANSETRON ODT 4 MG TAB PO STA ×2 (11:11→16:24)
--- NOTE | 2021-10-01 12:05 | XR ---
EXAMINATION TYPE: PA chest and right ribs series DATE OF EXAM: 10/01/2021 COMPARISON: 03/04/2021 HISTORY: 89-year-old male fall and right-sided rib pain TECHNIQUE: 5 views FINDINGS: Heart upper limits of normal in size. Mild elongation/tortuosity thoracic aorta. Endovascular aortic valve replacement noted. Right greater than left interstitial opacities greatest in the lower levels. No pleural effusion. Cortical irregularity involving the right lateral fourth rib. Mildly displaced fracture right lateral seventh rib. No pneumothorax seen. IMPRESSION: 1. Patchy interstitial infiltrates, right greater left, correlate for COVID pneumonia. 2. Nondisplaced to mildly displaced fractures of the right lateral fourth and seventh ribs.
[2021-10-01] MEDS ORDERED: SODIUM CHLORIDE 0.9% 500 ML 500 ML IV STA (12:33)
--- NOTE | 2021-10-01 12:37 | ED ---
General Adult HPI - General Chief complaint: Fall Stated complaint: Fall last night, rib pain Time Seen by Provider: 10/01/21 10:51 Source: patient, EMS, RN notes reviewed Mode of arrival: EMS Limitations: no limitations - History of Present Illness Initial comments: 89-year-old male presents to the emergency room for right rib pain. Patient had a fall yesterday evening. He tripped while in the bathroom and fell against the bathtub. Patient injured his right ribs. Patient denies any back or abdominal pain. Patient does take Plavix, no other blood thinners. Patient did not hit his head. Patient was able to get back into bed but was still complaining of pain today so his daughter brought him into the emergency room.Patient has no other complaints at this time including shortness of breath, chest pain, abdominal pain, nausea or vomiting, headache, or visual changes. - Related Data Home Medications Medication Instructions Recorded Confirmed Aspirin 81 mg PO DAILY 02/25/15 03/04/21 Atorvastatin [Lipitor] 10 mg PO HS 02/25/15 03/04/21 Glucosam/Demarcus-Msm1/C/Ralph/Bosw 1 tab PO DAILY 02/25/15 03/04/21 [Glucosamine-Chondroitin Tablet] Clopidogrel [Plavix] 75 mg PO DAILY 05/08/20 03/04/21 Ondansetron HCl [Zofran] 4 mg PO Q8H PRN 05/08/20 03/04/21 Cefuroxime [Ceftin] 250 mg PO BID 03/04/21 03/04/21 Cetirizine HCl 10 mg PO DAILY 03/04/21 03/04/21 Donepezil [Aricept] 10 mg PO HS 03/04/21 03/04/21 Meclizine [Antivert] 25 mg PO DIRECTED PRN 03/04/21 03/04/21 Triamcinolone Acetonide [Nasacort] 1 spray EA NOSTRIL BID PRN 03/04/21 03/04/21 Previous Rx's Medication Instructions Recorded Pantoprazole [Protonix] 40 mg PO BID tablet. 05/11/20 Allergies Allergy/AdvReac Type Severity Reaction Status Date / Time doxycycline Allergy Swelling Verified 10/01/21 10:34 morphine AdvReac Hallucinati Verified 10/01/21 10:34 ons/Nausea Review of Systems ROS Statement: Those systems with pertinent positive or pertinent negative responses have been documented in the HPI. ROS Other: All systems not noted in ROS Statement are negative. Past Medical History Past Medical History: CVA/TIA, Osteoarthritis (OA) Additional Past Medical History / Comment(s): HEART MURMUR, CVA RT EYE, SOB chronic back pain History of Any Multi-Drug Resistant Organisms: None Reported Past Surgical History: Appendectomy, Heart Catheterization, Joint Replacement, Orthopedic Surgery, Tonsillectomy Additional Past Surgical History / Comment(s): RT HIP REPLACEMENT,RT KNEE REPLACEMENT, EDISON KNEE ARTHROSCOPY,HAND SURGERY Past Anesthesia/Blood Transfusion Reactions: Motion Sickness Additional Past Anesthesia/Blood Transfusion Reaction / Comment(s): HAS HAD HARD TIME COMING OUT OF ANESTHESIA Past Psychological History: No Psychological Hx Reported Smoking Status: Former smoker Past Alcohol Use History: None Reported Past Drug Use History: None Reported - Past Family History Mother Family Medical History: Respiratory Disorder Additional Family Medical History / Comment(s): Mother from a lung fungal infection at the age of 74 yrs. Father Family Medical History: Respiratory Disorder Additional Family Medical History / Comment(s): Father was a smoker and had work related fume exposure. He had a stomach ulcer. Sister(s) Family Medical History: Cancer Additional Family Medical History / Comment(s): BREAST Brother(s) Family Medical History: Cancer General Exam Limitations: no limitations General appearance: alert, in no apparent distress Head exam: Present: atraumatic Eye exam: Present: normal appearance, PERRL, EOMI. Absent: scleral icterus, conjunctival injection ENT exam: Present: normal exam, mucous membranes moist Neck exam: Present: normal inspection, full ROM. Absent: tenderness Respiratory exam: Present: normal lung sounds bilaterally, chest wall tenderness (right anterior lower rib tenderness). Absent: respiratory distress, wheezes Cardiovascular Exam: Present: regular rate, normal rhythm, systolic murmur GI/Abdominal exam: Present: soft, normal bowel sounds, other (no ecchymosis). Absent: distended, tenderness Neurological exam: Present: alert Course Vital Signs 10/01/21 10/01/21 10/01/21 10:30 11:34 14:00 Temperature 98.3 F Pulse Rate 68 82 77 Respiratory 18 18 16 Rate Blood Pressure 147/72 132/64 114/67 O2 Sat by Pulse 96 92 L 93 L Oximetry Medical Decision Making - Medical Decision Making Vitals are stable. Chest x-ray with right rib series shows nondisplaced and mildly displaced fractures of the right lateral fourth and seventh ribs. Patchy interstitial infiltrates right greater than the left, correlate for covid pneumonia. Laboratory evaluation added at this time. ABC unremarkable. CMP does show evidence of dehydration. COVID-19, RSV, influenza negative. X-ray of the ribs does show a nondisplaced mildly displaced fractures of the right lateral fourth and seventh ribs. There is also a patchy interstitial pneumonia. Given COVID-19 is negative we will start patient on antibiotics. Case was discussed with Dr. Jimenez is a did attempt to make this a trauma admission however she does not feel this is necessary as it was not activated and recommends admission to medicine with trauma consult, pulmonology consult and anesthesia consult for possible rib block. - Lab Data Result diagrams: 10/01/21 12:57 10/01/21 12:57 Lab Results 10/01/21 10/01/21 10/01/21 Range/Units 12:50 12:57 12:57 WBC 9.6 (3.8-10.6) k/uL RBC 4.45 (4.30-5.90) m/uL Hgb 12.8 L (13.0-17.5) gm/dL Hct 39.1 (39.0-53.0) % MCV 87.8 (80.0-100.0) fL MCH 28.8 (25.0-35.0) pg MCHC 32.8 (31.0-37.0) g/dL RDW 12.6 (11.5-15.5) % Plt Count 220 (150-450) k/uL MPV 8.2 Neutrophils % 73 % Lymphocytes % 17 % Monocytes % 5 % Eosinophils % 4 % Basophils % 1 % Neutrophils # 7.0 (1.3-7.7) k/uL Lymphocytes # 1.6 (1.0-4.8) k/uL Monocytes # 0.5 (0-1.0) k/uL Eosinophils # 0.4 (0-0.7) k/uL Basophils # 0.1 (0-0.2) k/uL Sodium 137 (137-145) mmol/L Potassium 4.5 (3.5-5.1) mmol/L Chloride 104 (98-107) mmol/L Carbon Dioxide 26 (22-30) mmol/L Anion Gap 7 mmol/L BUN 22 H (9-20) mg/dL Creatinine 0.89 (0.66-1.25) mg/dL Est GFR (CKD-EPI)AfAm 88 (>60 ml/min/1.73 sqM) Est GFR (CKD-EPI)NonAf 76 (>60 ml/min/1.73 sqM) Glucose 111 H (74-99) mg/dL Plasma Lactic Acid Dirk (0.7-2.0) mmol/L Calcium 9.2 (8.4-10.2) mg/dL Total Bilirubin 0.5 (0.2-1.3) mg/dL AST 26 (17-59) U/L ALT 15 (4-49) U/L Alkaline Phosphatase 96 (38-126) U/L Total Protein 6.7 (6.3-8.2) g/dL Albumin 3.6 (3.5-5.0) g/dL Influenza Type A (PCR) Not Detected (Not Detectd) Influenza Type B (PCR) Not Detected (Not Detectd) RSV (PCR) Not Detected (Not Detectd) SARS-CoV-2 (PCR) Not Detected (Not Detectd) 10/01/21 Range/Units 12:57 WBC (3.8-10.6) k/uL RBC (4.30-5.90) m/uL Hgb (13.0-17.5) gm/dL Hct (39.0-53.0) % MCV (80.0-100.0) fL MCH (25.0-35.0) pg MCHC (31.0-37.0) g/dL RDW (11.5-15.5) % Plt Count (150-450) k/uL MPV Neutrophils % % Lymphocytes % % Monocytes % % Eosinophils % % Basophils % % Neutrophils # (1.3-7.7) k/uL Lymphocytes # (1.0-4.8) k/uL Monocytes # (0-1.0) k/uL Eosinophils # (0-0.7) k/uL Basophils # (0-0.2) k/uL Sodium (137-145) mmol/L Potassium (3.5-5.1) mmol/L Chloride (98-107) mmol/L Carbon Dioxide (22-30) mmol/L Anion Gap mmol/L BUN (9-20) mg/dL Creatinine (0.66-1.25) mg/dL Est GFR (CKD-EPI)AfAm (>60 ml/min/1.73 sqM) Est GFR (CKD-EPI)NonAf (>60 ml/min/1.73 sqM) Glucose (74-99) mg/dL Plasma Lactic Acid Dirk 1.6 (0.7-2.0) mmol/L Calcium (8.4-10.2) mg/dL Total Bilirubin (0.2-1.3) mg/dL AST (17-59) U/L ALT (4-49) U/L Alkaline Phosphatase (38-126) U/L Total Protein (6.3-8.2) g/dL Albumin (3.5-5.0) g/dL Influenza Type A (PCR) (Not Detectd) Influenza Type B (PCR) (Not Detectd) RSV (PCR) (Not Detectd) SARS-CoV-2 (PCR) (Not Detectd) Disposition Clinical Impression: Multiple rib fractures, Multifocal pneumonia Disposition: ADMITTED IP TO THIS HOSP Is patient prescribed a controlled substance at d/c from ED?: No Referrals: Dino Julien MD [Primary Care Provider] - 1-2 days Time of Disposition: 15:18
[2021-10-01] MEDS ORDERED: LIDOCAINE 5% PATCH TOPICAL STA (13:14)
[2021-10-01] MEDS ORDERED: HYDROmorphone 0.5 MG/0.5 ML SYRINGE IVP STA (13:14)
[2021-10-01 13:38] LABS: Basophils # (A) 0.1 k/uL (0-0.2); Basophils % (A) 1 %; Eosinophils # (A) 0.4 k/uL (0-0.7); Eosinophils % (A) 4 %; HCT 39.1 % (39.0-53.0); HGB 12.8 gm/dL (13.0-17.5); Lymphocytes # (A) 1.6 k/uL (1.0-4.8); Lymphocytes % (A) 17 %; MCH 28.8 pg (25.0-35.0); MCHC 32.8 g/dL (31.0-37.0); MCV 87.8 fL (80.0-100.0); Mean Platelet Volume 8.2; Monocytes # (A) 0.5 k/uL (0-1.0); Monocytes % (A) 5 %; Neutrophils % (A) 73 %; Platelet Count 220 k/uL (150-450); RBC 4.45 m/uL (4.30-5.90); RDW 12.6 % (11.5-15.5); WBC 9.6 k/uL (3.8-10.6)
[2021-10-01 13:54] LABS: Albumin 3.6 g/dL (3.5-5.0); Calcium 9.2 mg/dL (8.4-10.2); Potassium 4.5 mmol/L (3.5-5.1); Total Bilirubin 0.5 mg/dL (0.2-1.3); Total Protein 6.7 g/dL (6.3-8.2)
[2021-10-01] MEDS ORDERED: AZITHROMYCIN 500 MG in SODIUM CHLORIDE 0.9% 250 ML IVPB STA (15:17)
[2021-10-01] MEDS ORDERED: cefTRIAXone IN SWFI 1,000 MG/10 ML SYRINGE IVP STA (15:17)
[2021-10-01] MEDS ORDERED: NALOXONE 0.4 MG/ML 1 ML VIAL IV PRN (15:18)
[2021-10-01] MEDS ORDERED: HYDROmorphone 0.5 MG/0.5 ML SYRINGE IVP PRN (15:18)
[2021-10-01] MEDS: SODIUM CHLORIDE 0.9% 1,000 ML IV SCH (16:08)
[2021-10-01] MEDS ORDERED: ONDANSETRON 4 MG TAB PO PRN (16:21)
[2021-10-01] MEDS ORDERED: ONDANSETRON 4 MG TAB PO ONE (16:22)
[2021-10-01] MEDS ORDERED: ACETAMINOPHEN TAB 325 MG TAB PO PRN (16:29)
--- NOTE | 2021-10-01 16:29 | P.GSCN ---
History of Present Illness Consult date: 10/01/21 Reason for Consult: Fall, rib fractures History of present illness: The patient is and 89 year old man who came into the ED because of rib pain. He fell in the bathroom yesterday striking the right ribs on the bath tub. Denies tripping, he feels like he fell due to dizziness. The patient and daughter think the dizziness has been present 1-2 weeks. He also has had a nonproductive cough and some trouble speaking. Denies loss of consciousness or hitting his head. Denies abdominal pain, nausea or vomiting. No shortness of breath. He h as had Covid vaccination and no known exposure. His daughter works at [employer] so says there is the potential of Covid exposure Review of Systems All systems: negative Past Medical History Past Medical History: CVA/TIA, Osteoarthritis (OA) Additional Past Medical History / Comment(s): HEART MURMUR, CVA RT EYE, SOB chronic back pain History of Any Multi-Drug Resistant Organisms: None Reported Past Surgical History: Appendectomy, Heart Catheterization, Joint Replacement, Orthopedic Surgery, Tonsillectomy Additional Past Surgical History / Comment(s): RT HIP REPLACEMENT,RT KNEE REPLACEMENT, EDISON KNEE ARTHROSCOPY,HAND SURGERY Past Anesthesia/Blood Transfusion Reactions: Motion Sickness Additional Past Anesthesia/Blood Transfusion Reaction / Comm: HAS HAD HARD TIME COMING OUT OF ANESTHESIA Past Psychological History: No Psychological Hx Reported Smoking Status: Former smoker Past Alcohol Use History: None Reported Past Drug Use History: None Reported - Past Family History Mother Family Medical History: Respiratory Disorder Additional Family Medical History / Comment(s): Mother from a lung fungal infection at the age of 74 yrs. Father Family Medical History: Respiratory Disorder Additional Family Medical History / Comment(s): Father was a smoker and had work related fume exposure. He had a stomach ulcer. Sister(s) Family Medical History: Cancer Additional Family Medical History / Comment(s): BREAST Brother(s) Family Medical History: Cancer Medications and Allergies Home Medications Medication Instructions Recorded Confirmed Type Aspirin 81 mg PO DAILY 02/25/15 03/04/21 History Atorvastatin [Lipitor] 10 mg PO HS 02/25/15 03/04/21 History Glucosam/Demarcus-Msm1/C/Ralph/Bosw 1 tab PO DAILY 02/25/15 03/04/21 History [Glucosamine-Chondroitin Tablet] Clopidogrel [Plavix] 75 mg PO DAILY 05/08/20 03/04/21 History Cholecalciferol [Vitamin D3 (25 25 mcg PO DAILY 10/01/21 10/01/21 History Mcg = 1000 Iu)] Multivit-Min/FA/Lycopen/Lutein 1 tab PO DAILY 10/01/21 10/01/21 History [Centrum Silver Men Tablet] Rivastigmine 4.6MG/24Hr Patch 1 patch TRANSDERM HS 10/01/21 10/01/21 History [Exelon 4.6MG/24Hr Patch] Allergies Allergy/AdvReac Type Severity Reaction Status Date / Time doxycycline Allergy Swelling Verified 10/01/21 16:17 morphine AdvReac Hallucinati Verified 10/01/21 16:17 ons/Nausea Surgical - Exam Osteopathic Statement: *. No significant issues noted on an osteopathic structural exam other than those noted in the History and Physical/Consult. Vital Signs Temp Pulse Resp BP Pulse Ox 98.3 F 68 18 147/72 96 10/01/21 10:30 10/01/21 10:30 10/01/21 10:30 10/01/21 10:30 10/01/21 10:30 - General well developed, well nourished, no distress - Eyes normal ocular movement, no deviation - Neck trachea midline - Respiratory normal respiratory effort, clear to auscultation absent: wheezing, rales - Cardiovascular Rhythm: regular - Abdomen Abdomen: soft, non tender, bowel sounds, no guarding, no rigid, no rebound, no distended Some mild point tenderness lower lateral ribcage on right. No obvious ecchymosis or deformity Results - Labs 10/01/21 12:57 10/01/21 12:57 Abnormal Lab Results - Last 24 Hours (Table) 10/01/21 10/01/21 Range/Units 12:57 12:57 Hgb 12.8 L (13.0-17.5) gm/dL BUN 22 H (9-20) mg/dL Glucose 111 H (74-99) mg/dL Diabetes panel 10/01/21 Range/Units 12:57 Sodium 137 (137-145) mmol/L Potassium 4.5 (3.5-5.1) mmol/L Chloride 104 (98-107) mmol/L Carbon Dioxide 26 (22-30) mmol/L BUN 22 H (9-20) mg/dL Creatinine 0.89 (0.66-1.25) mg/dL Glucose 111 H (74-99) mg/dL Calcium 9.2 (8.4-10.2) mg/dL AST 26 (17-59) U/L ALT 15 (4-49) U/L Alkaline Phosphatase 96 (38-126) U/L Total Protein 6.7 (6.3-8.2) g/dL Albumin 3.6 (3.5-5.0) g/dL Calcium panel 10/01/21 Range/Units 12:57 Calcium 9.2 (8.4-10.2) mg/dL Albumin 3.6 (3.5-5.0) g/dL Pituitary panel 10/01/21 Range/Units 12:57 Sodium 137 (137-145) mmol/L Potassium 4.5 (3.5-5.1) mmol/L Chloride 104 (98-107) mmol/L Carbon Dioxide 26 (22-30) mmol/L BUN 22 H (9-20) mg/dL Creatinine 0.89 (0.66-1.25) mg/dL Glucose 111 H (74-99) mg/dL Calcium 9.2 (8.4-10.2) mg/dL Adrenal panel 10/01/21 Range/Units 12:57 Sodium 137 (137-145) mmol/L Potassium 4.5 (3.5-5.1) mmol/L Chloride 104 (98-107) mmol/L Carbon Dioxide 26 (22-30) mmol/L BUN 22 H (9-20) mg/dL Creatinine 0.89 (0.66-1.25) mg/dL Glucose 111 H (74-99) mg/dL Calcium 9.2 (8.4-10.2) mg/dL Total Bilirubin 0.5 (0.2-1.3) mg/dL AST 26 (17-59) U/L ALT 15 (4-49) U/L Alkaline Phosphatase 96 (38-126) U/L Total Protein 6.7 (6.3-8.2) g/dL Albumin 3.6 (3.5-5.0) g/dL - Imaging Chest x-ray: report reviewed, image reviewed Assessment and Plan (1) Dizziness Current Visit: Yes Status: Acute Code(s): R42 - DIZZINESS AND GIDDINESS SNOMED Code(s): 225404887 (2) Multifocal pneumonia Current Visit: Yes Status: Acute Code(s): J18.9 - PNEUMONIA, UNSPECIFIED ORGANISM SNOMED Code(s): 753379123 (3) Multiple rib fractures Current Visit: Yes Status: Acute Code(s): S22.49XA - MULTIPLE FRACTURES OF RIBS, UNSP SIDE, INIT FOR CLOS FX SNOMED Code(s): 6723652 Plan: The patient will be admitted for incentive spirometry and pain control. Recommend workup for dizziness and cough with concern for pneumonia on CXR. Currently nonsurgical. Discussed with patient, daughter and ED provider
[2021-10-01] MEDS ORDERED: RX INFO: IV CONTRAST WAS GIVEN 1 EACH MISC MISCELLANE PRN (17:00)
--- NOTE | 2021-10-01 17:00 | P.HPIM ---
History of Present Illness H&P Date: 10/01/21 Chief Complaint: Weakness, cough falls at home This is an 89-year-old pleasant gentleman patient of Dr. Anderson, with known history of valvular heart disease, status post Taver procedure, TIAs, multiple falls, fracture of the hip in the past, and dementia. Spinal stenosis. Patient was seen in emergency room, brought in from family members from home, for which she has fallen down, and was starting to be weak. Patient has been having cough, no fever no chills, also complains of difficulty of swallowing, mainly food. No dysphagia to liquids, or pills. Patient tripped in the bathroom, and fell against the bathtub, injured his right side patient lives with the terrye r, no O2 requirements at home, requires walker for community ambulation Hhe had an EGD in May 2020, diagnosed with lung cancer, follows with Dr. Lopez radiation therapy only, right side, no chemotherapy and no surgery, in remission per daughter. CODE STATUS UNDECIDED In the emergency room, x-rays shows mildly displaced fracture of the right lateral fourth and seventh rib, also not visible patchy interstitial infiltrates right greater than left, correlate for clubbing pneumonia, patient had 3 mother no vaccines, including the more posterior. I'll did 19 is negative, patient was started on IV antibiotics, patient was seen consultation by Dr. Hensley, for trauma admission, CBC shows hemoglobin of 12.8, WBC count 9.6, creatinine 0.89, with baseline in the 0.80 level. Blood sugars 111, sodium 137 alkaline phosphatase normal, lactic acid is normal 1.6. Quad screen, acuity for influenza AB, RSV, and coronary virus PCR no urinalysis was performed and patient admitted for multifocal pneumonia, IV Rocephin and Zithromax consult with PT OT, and speech, evaluate for aspirations secondary dysphagia Review of Systems Constitutional: Reports as per HPI, Reports chills, Reports fatigue, Reports malaise, Reports poor appetite, Reports weakness, Denies fever Ears, nose, mouth and throat: Reports as per HPI, Reports dysphagia, Denies hoarseness, Denies neck lump, Denies sore throat Cardiovascular: Reports as per HPI, Reports decreased exercise tolerance, Denies syncope Respiratory: Reports as per HPI, Reports cough, Reports cough with sputum, Reports dyspnea, Reports pain on inspiration, Reports respiratory infections, Denies home oxygen, Denies wheezing Gastrointestinal: Reports as per HPI, Reports nausea, Reports vomiting Genitourinary: Reports as per HPI Musculoskeletal: Reports as per HPI Neurological: Reports as per HPI, Reports balance difficulties, Reports c onfusion, Reports weakness, Denies change in speech, Denies lack of coordination Psychiatric: Reports as per HPI, Reports change in sleep habits, Reports sleep disturbances Endocrine: Reports as per HPI, Reports heat intolerance Hematologic/Lymphatic: Reports as per HPI, Reports easy bruising Allergic/Immunologic: Reports as per HPI Past Medical History Past Medical History: CVA/TIA, Osteoarthritis (OA) Additional Past Medical History / Comment(s): HEART MURMUR, CVA RT EYE, SOB chronic back pain History of Any Multi-Drug Resistant Organisms: None Reported Past Surgical History: Appendectomy, Heart Catheterization, Joint Replacement, Orthopedic Surgery, Tonsillectomy Additional Past Surgical History / Comment(s): RT HIP REPLACEMENT,RT KNEE REPLACEMENT, EDISON KNEE ARTHROSCOPY,HAND SURGERY Past Anesthesia/Blood Transfusion Reactions: Motion Sickness Additional Past Anesthesia/Blood Transfusion Reaction / Comment(s): HAS HAD HARD TIME COMING OUT OF ANESTHESIA Past Psychological History: No Psychological Hx Reported Smoking Status: Former smoker Past Alcohol Use History: None Reported Past Drug Use History: None Reported - Past Family History Mother Family Medical History: Respiratory Disorder Additional Family Medical History / Comment(s): Mother from a lung fungal infection at the age of 74 yrs. Father Family Medical History: Respiratory Disorder Additional Family Medical History / Comment(s): Father was a smoker and had work related fume exposure. He had a stomach ulcer. Sister(s) Family Medical History: Cancer Additional Family Medical History / Comment(s): BREAST Brother(s) Family Medical History: Cancer Medications and Allergies Home Medications Medication Instructions Recorded Confirmed Type Aspirin 81 mg PO DAILY 02/25/15 10/01/21 History Atorvastatin [Lipitor] 10 mg PO HS 02/25/15 10/01/21 History Glucosam/Demarcus-Msm1/C/Ralph/Bosw 1 tab PO DAILY 02/25/15 10/01/21 History [Glucosamine-Chondroitin Tablet] Clopidogrel [Plavix] 75 mg PO DAILY 05/08/20 10/01/21 History Cholecalciferol [Vitamin D3 (25 25 mcg PO DAILY 10/01/21 10/01/21 History Mcg = 1000 Iu)] Multivit-Min/FA/Lycopen/Lutein 1 tab PO DAILY 10/01/21 10/01/21 History [Centrum Silver Men Tablet] Rivastigmine 4.6MG/24Hr Patch 1 patch TRANSDERM HS 10/01/21 10/01/21 History [Exelon 4.6MG/24Hr Patch] Allergies Allergy/AdvReac Type Severity Reaction Status Date / Time doxycycline Allergy Swelling Verified 10/01/21 16:17 morphine AdvReac Hallucinati Verified 10/01/21 16:17 ons/Nausea Physical Exam Vitals: Vital Signs Temp Pulse Resp BP Pulse Ox 10/01/21 14:00 77 16 114/67 93 L 10/01/21 11:34 82 18 132/64 92 L 10/01/21 10:30 98.3 F 68 18 147/72 96 Intake and Output 10/01/21 10/01/21 10/01/21 06:59 14:59 22:59 Other: Weight 77.111 kg - Constitutional General appearance: cooperative, no acute distress - EENT Eyes: PERRLA, dentition normal, normal appearance ENT: NA/AT, normal oropharynx - Neck Neck: normal ROM - Respiratory Respiratory: bilateral: CTA, negative: diminished, dullness, rales, rhonchi - Cardiovascular Rhythm: regular Heart sounds: normal: S1, S2 Abnormal Heart Sounds: no systolic murmur, no diastolic murmur, no rub, no S3 Gallop, no S4 Gallop, no click, no other - Gastrointestinal General gastrointestinal: normal bowel sounds, soft - Integumentary Integumentary: decreased turgor, normal - Neurologic Neurologic: CNII-XII intact - Musculoskeletal Musculoskeletal: generalized weakness - Psychiatric Psychiatric: A&O x's 3, intact judgment & insight Results CBC & Chem 7: 10/01/21 12:57 10/01/21 12:57 Labs: Abnormal Lab Results - Last 24 Hours (Table) 10/01/21 10/01/21 Range/Units 12:57 12:57 Hgb 12.8 L (13.0-17.5) gm/dL BUN 22 H (9-20) mg/dL Glucose 111 H (74-99) mg/dL Laboratory Results WBC 9.6 k/uL (3.8-10.6) 10/01/21 12:57 RBC 4.45 m/uL (4.30-5.90) 10/01/21 12:57 Hgb 12.8 gm/dL (13.0-17.5) L 10/01/21 12:57 Hct 39.1 % (39.0-53.0) 10/01/21 12:57 MCV 87.8 fL (80.0-100.0) 10/01/21 12:57 MCH 28.8 pg (25.0-35.0) 10/01/21 12:57 MCHC 32.8 g/dL (31.0-37.0) 10/01/21 12:57 RDW 12.6 % (11.5-15.5) 10/01/21 12:57 Plt Count 220 k/uL (150-450) 10/01/21 12:57 MPV 8.2 10/01/21 12:57 Neutrophils % 73 % 10/01/21 12:57 Lymphocytes % 17 % 10/01/21 12:57 Monocytes % 5 % 10/01/21 12:57 Eosinophils % 4 % 10/01/21 12:57 Basophils % 1 % 10/01/21 12:57 Neutrophils # 7.0 k/uL (1.3-7.7) 10/01/21 12:57 Lymphocytes # 1.6 k/uL (1.0-4.8) 10/01/21 12:57 Monocytes # 0.5 k/uL (0-1.0) 10/01/21 12:57 Eosinophils # 0.4 k/uL (0-0.7) 10/01/21 12:57 Basophils # 0.1 k/uL (0-0.2) 10/01/21 12:57 Sodium 137 mmol/L (137-145) 10/01/21 12:57 Potassium 4.5 mmol/L (3.5-5.1) 10/01/21 12:57 Chloride 104 mmol/L (98-107) 10/01/21 12:57 Carbon Dioxide 26 mmol/L (22-30) 10/01/21 12:57 Anion Gap 7 mmol/L 10/01/21 12:57 BUN 22 mg/dL (9-20) H 10/01/21 12:57 Creatinine 0.89 mg/dL (0.66-1.25) 10/01/21 12:57 Est GFR (CKD-EPI)AfAm 88 (>60 ml/min/1.73 sqM) 10/01/21 12:57 Est GFR (CKD-EPI)NonAf 76 (>60 ml/min/1.73 sqM) 10/01/21 12:57 Glucose 111 mg/dL (74-99) H 10/01/21 12:57 Plasma Lactic Acid Dirk 1.6 mmol/L (0.7-2.0) 10/01/21 12:57 Calcium 9.2 mg/dL (8.4-10.2) 10/01/21 12:57 Total Bilirubin 0.5 mg/dL (0.2-1.3) 10/01/21 12:57 AST 26 U/L (17-59) 10/01/21 12:57 ALT 15 U/L (4-49) 10/01/21 12:57 Alkaline Phosphatase 96 U/L (38-126) 10/01/21 12:57 Total Protein 6.7 g/dL (6.3-8.2) 10/01/21 12:57 Albumin 3.6 g/dL (3.5-5.0) 10/01/21 12:57 Influenza Type A (PCR) Not Detected (Not Detectd) 10/01/21 12:50 Influenza Type B (PCR) Not Detected (Not Detectd) 10/01/21 12:50 RSV (PCR) Not Detected (Not Detectd) 10/01/21 12:50 SARS-CoV-2 (PCR) Not Detected (Not Detectd) 10/01/21 12:50 Assessment and Plan Plan: 1. Multifocal pneumonia, possibly related to recurrent aspiration, Covid vaccinated, 2 including posterior,QUAD screen in the emergency room was negative for cold discontinued, RSV, influenza A and B, consult with speech, aspiration precautions, IV Zosyn. Sputum culture if able to obtain, physical therapy, O2 supplementation, 2chronic severe dizziness could be related to orthostatics against vestibulopat hy, check for orthostatics,. Gabapentin and Aricept discontinued. PT and OT evaluations. 3 valvular heart disease: Post TAVR with severe aortic stenosis much better since his procedure, continue Plavix and aspirin. 4 severe neuropathy: Not onnarcotics or gabapentin from home, underlying spinal stenosis, nonsurgical, walker for community ambulation check for CPK for rhabdo 5 lung Ca s/p radiation tx no chemo no surgical resection, check for ct head for vertigo falls nausea, check for lung chest ct, poss oncology/pulomnary consult. follows with outside pulmo dr Lopez 6 dementia: Mostly Alzheimer type, on the breast significant, started July 2021 by PCP 7 hyperlipidemia: Remain on atorvastatin 10 mg daily. 8 BPH: Watch for any urinary retention. 9. Debility: Consult PT/OT 10 GI prophylaxis: Patient be on pantoprazole IV. 11 DVT prophylaxis: Knee-high LUDWIG hose and Venodyne boots. 12. Covid 19 negative CODE STATUS: Full code. Discharge plan: Possible subacute rehab or home
[2021-10-01] MEDS: RIVASTIGMINE 4.6MG/24HR PATCH TRANSDERM SCH (20:12)
[2021-10-01] MEDS: ATORVASTATIN 10 MG TAB PO SCH (20:12)
--- NOTE | 2021-10-01 22:11 | CT ---
EXAMINATION TYPE: CT brain wo con DATE OF EXAM: 10/01/2021 COMPARISON: 05/08/2020 HISTORY: Fall CT DLP: 1129.4 mGycm Automated exposure control for dose reduction was used. Images obtained of the brain without contrast. There is cerebral cortical atrophy. There is no mass effect nor midline shift. There is no sign of in tracranial hemorrhage. Calvarium is intact. Skull base is intact. IMPRESSION: Cerebral atrophy. No acute intracranial abnormality. No change.
--- NOTE | 2021-10-01 22:32 | CT ---
EXAMINATION TYPE: CT chest wo con DATE OF EXAM: 10/01/2021 COMPARISON: CT abdomen pelvis 05/08/2020 HISTORY: Fall CT DLP: 432 mGycm Automated exposure control for dose reduction was used. There is some emphysematous changes at the lung apices. Thoracic aorta is atheromatous. 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 There is aortic valve surgery. There is very small pericardial effusion. There is no mediastinal adenopathy. There are no hilar masses. There is patchy airspace infiltrates in both lower lobes. There is no pleural effusion. There are cli ps from cholecystectomy. The thoracic spine is intact. There is no significant compression deformity. There is mild deformity of the sternum that could be from old fracture. IMPRESSION: Bilateral lower lobe pulmonary infiltrates and atelectasis which are increased compared to old exam. Pulmonary emphysema. Borderline aneurysm ascending aorta. Small pericardial effusion appears new compared to old exam.
[2021-10-02] MEDS: SODIUM CHLORIDE 0.9% 1,000 ML IV SCH (07:03)
[2021-10-02] MEDS: CHOLECALCIFEROL 25 MCG (1000 IU) TABLET PO SCH (08:40)
[2021-10-02] MEDS: CLOPIDOGREL 75 MG TAB PO SCH (08:40)
[2021-10-02] MEDS: ASPIRIN 81 MG PO SCH (08:40)
[2021-10-02] MEDS: PANTOPRAZOLE 40 MG/10 ML VIAL IVP SCH (08:40)
[2021-10-02] MEDS ORDERED: ONDANSETRON 4 MG/2 ML VIAL IVP PRN (08:47)
--- NOTE | 2021-10-02 13:26 | P.PN ---
Subjective Progress Note Date: 10/02/21 The patient was admitted after a fall with rib fractures. He denies any pain or shortness of breath today. Thinks he is less of a cough. He is very sleepy Objective - Vital Signs Vital signs: Vital Signs Temp 97.9 F 10/02/21 08:00 Pulse 72 10/02/21 08:00 Resp 18 10/02/21 08:00 BP 121/67 10/02/21 08:00 Pulse Ox 93 L 10/02/21 08:00 Intake & Output 10/01/21 10/02/21 10/02/21 18:59 06:59 18:59 Intake Total 400 Balance 400 Weight 77.111 kg Intake: Oral 400 Other: Voiding Method Urinal # Voids 1 2 - Constitutional General appearance: Present: cooperative, no acute distress - Respiratory Respiratory: bilateral: CTA, diminished (Diminished at the bases) - Labs CBC & Chem 7: 10/01/21 12:57 10/01/21 12:57 Labs: Abnormal Lab Results - Last 24 Hours (Table) 10/01/21 10/01/21 Range/Units 12:57 12:57 Hgb 12.8 L (13.0-17.5) gm/dL BUN 22 H (9-20) mg/dL Glucose 111 H (74-99) mg/dL Assessment and Plan (1) Dizziness Current Visit: Yes Status: Acute Code(s): R42 - DIZZINESS AND GIDDINESS SNOMED Code(s): 092802696 (2) Multifocal pneumonia Current Visit: Yes Status: Acute Code(s): J18.9 - PNEUMONIA, UNSPECIFIED ORGANISM SNOMED Code(s): 430089511 (3) Multiple rib fractures Current Visit: Yes Status: Acute Code(s): S22.49XA - MULTIPLE FRACTURES OF RIBS, UNSP SIDE, INIT FOR CLOS FX SNOMED Code(s): 4558790 Plan: Patient is not having any pain from his broken ribs. Continue medical care. He is currently nonsurgical so I will sign off. Follow-up as needed
[2021-10-02] MEDS ORDERED: KETOROLAC 30 MG/ML 1 ML VIAL IVP PRN (14:45)
[2021-10-02] MEDS ORDERED: HYDROcodone/APAP 5-325MG 1 EACH TAB PO PRN (14:48)
[2021-10-02] MEDS ORDERED: cefTRIAXone IN SWFI 1,000 MG/10 ML SYRINGE IVP SCH (15:00)
--- NOTE | 2021-10-02 15:52 | P.PN ---
Subjective Progress Note Date: 10/02/21 History of present illness This is an 89-year-old pleasant gentleman patient of Dr. Anderson, with known his tory of valvular heart disease, status post Taver procedure, TIAs, multiple falls, fracture of the hip in the past, and dementia. Spinal stenosis. Patient was seen in emergency room, brought in from family members from home, for which she has fallen down, and was starting to be weak. Patient has been having cough, no fever no chills, also complains of difficulty of swallowing, mainly food. No dysphagia to liquids, or pills. Patient tripped in the bathroom, and fell against the bathtub, injured his right side patient lives with the daughter, no O2 requirements at home, requires walker for community ambulation Jin had an EGD in May 2020, diagnosed with lung cancer, follows with Dr. Gabriel clement radiation therapy only, right side, no chemotherapy and no surgery, in remission per daughter. CODE STATUS UNDECIDED In the emergency room, x-rays shows mildly displaced fracture of the right la teral fourth and seventh rib, also not visible patchy interstitial infiltrates right greater than left, correlate for clubbing pneumonia, patient had 3 mother no vaccines, including the more posterior. I'll did 19 is negative, patient was started on IV antibiotics, patient was seen consultation by Dr. Hensley, for trauma admission, CBC shows hemoglobin of 12.8, WBC count 9.6, creatinine 0.89, with baseline in the 0.80 level. Blood sugars 111, sodium 137 alkaline phosphatase normal, lactic acid is normal 1.6. Quad screen, acuity for influenza AB, RSV, and coronary virus PCR no urinalysis was performed and patient admitted for multifocal pneumonia, IV Rocephin and Zithromax consult with PT OT, and speech, evaluate for aspirations secondary dysphagia 10/02 patient examined bedside complains of significant tenderness involving the right lower chest has been comfortably lying in the bed though. Patient today received intermittent diluted overnight and has a lidocaine patch to help some w ith the pain. He has not experienced any dizziness since he's been on the floor. Orthostatic obtained which is negative daughter Claudia was called who does suggest the patient has been having vertigo for the past few days which is new for him. He does have history of falls 10 years back but has not had any recent falls. CT chest was reviewed suggestive of bilateral lower lobe infiltrate concerning for CHF. COVID, influenza and RSV were negative. ProBNP ordered. CT head was negative for any acute process. Patient denies any dizziness. PTOT evaluation ordered. Swallow evaluation ordered to rule out aspiration. Pro-calcitonin negative unlikely to be a bacterial pneumonia. Lasix initiated 20 IV twice a day. Toradol initially for pain control ROS Constitutional: Denies chills, Denies fever, Denies lethargy, Denies malaise, Denies poor appetite, Denies weakness, Denies weight loss Eyes: denies decreased vision, denies diplopia, denies discharge, denies pain Ears: deny: decreased hearing Ears, nose, mouth and throat: Denies dental pain, Denies headache, Denies nasal discharge, Denies nose pain Cardiovascular: Denies chest pain, Denies decreased exercise tolerance, Denies e bernice, Denies high blood pressure, Denies irregular heart beat, Denies palpitations, Denies paroxysmal nocturnal dyspnea, Denies rapid heart beat, Denies shortness of breath Respiratory: Denies congestion, Denies cough, Denies cough with sputum, Denies dyspnea, Denies home oxygen, Denies wheezing Gastrointestinal: Denies abdominal pain, Denies change in bowel habits, Denies coffee ground emesis, Denies early satiety, Denies excessive gas, Denies heartburn, Denies hematemesis, Denies hematochezia, Denies loss of appetite, Denies nausea, Denies vomiting Genitourinary: Denies dysuria, Denies flank pain, Denies kidney stones, Denies menorrhagia, Denies urgency, Denies urinary frequency Musculoskeletal: Denies gait dysfunction, Denies limitation of motion, Denies morning stiffness, Denies muscle crampsEndorses chest pain on the right Integumentary: Denies rash, Denies wounds, Denies brittle nails, Denies change in hair/nails, Denies darkening of skin Neurological: Denies balance difficulties, Denies change in speech, Denies double vision, Denies gait dysfunction, Denies loss of vision, Denies motor disturbance, Denies numbness, Denies paralysis, Denies paresthesias, Denies seizures Psychiatric: Denies anxiety, Denies depression Endocrine: Denies excessive sweating, Denies excessive thirst, Denies high blood sugars, Denies palpitations Hematologic/Lymphatic: Denies easy bruising, Denies lymphadenopathy Physical exam - Constitutional General appearance: cooperative, no acute distress, appropriate for age - EENT Eyes: anicteric sclerae, PERRLA, normal appearance ENT: hearing grossly normal - Neck Neck: no lymphadenopathy, normal ROM, no other, no rigidity, no stridor, no thyromegaly - Respiratory Respiratory: bilateral: CTA,tender to palpate in the right lower chest negative: diminished, dullness, rales, rhonchi - Cardiovascular Rhythm: regular Heart sounds: normal: S1, S2 Abnormal Heart Sounds:4/6c murmur, no diastolic murmur, no rub, no S3 Gallop, no S4 Gallop, no click, no other - Gastrointestinal General gastrointestinal: normal bowel sounds, soft - Integumentary Integumentary: no rash - Neurologic Neurologic: CNII-XII intactNo nystagmus no sensorimotor deficit - Musculoskeletal Musculoskeletal:Gait not assessed strength equal bilaterally - Psychiatric Psychiatric: A&O x's 3, appropriate affect Assessment and plan 1. Acute hypoxic respiratory failure rule out Multifocal pneumonia, possibly related to recurrent aspiration, to rule out CHF exacerbation Covid vaccinated, 2 Covid RSV, influenza A and B negative, consult with speech, aspiration precautions, IV Zosyn. Sputum culture if able to obtain, physical therapy, O2 supplementation, proBNP ordered 2 acute on chronic severe dizziness orthostatics negative. Gabapentin and Aricept discontinued. PT and OT evaluations. We'll consult cardiology if no improvement 3 valvular heart disease: Post TAVR with severe aortic stenosis much better since his procedure, continue Plavix and aspirin. 4 severe neuropathy: Not onnarcotics or gabapentin from home, underlying spinal stenosis, nonsurgical, walker for community ambulation check for CPK for rhabdo 5 lung Ca s/p radiation tx no chemo no surgical resection, check for ct head for vertigo falls nausea, check for lung chest ct, poss oncology/pulomnary consult. follows with outside pulmo dr Lopez 6 dementia: Mostly Alzheimer type, on the breast significant, started July 2021 by PCP 7 hyperlipidemia: Remain on atorvastatin 10 mg daily. 8 BPH: Watch for any urinary retention. 9. Debility: Consult PT/OT 10 GI prophylaxis: Patient be on pantoprazole IV. 11 DVT prophylaxis: Knee-high LUDWIG hose and Venodyne boots. 12. Covid 19 negative CODE STATUS: Full code. Discharge plan: Possible subacute rehab or home Objective - Vital Signs Vital signs: Vital Signs Temp 97.9 F 10/02/21 08:00 Pulse 72 10/02/21 08:00 Resp 18 10/02/21 08:00 BP 121/67 10/02/21 08:00 Pulse Ox 93 L 10/02/21 08:00 Intake & Output 10/01/21 10/02/21 10/02/21 18:59 06:59 18:59 Intake Total 400 Balance 400 Weight 77.111 kg Intake: Oral 400 Other: Voiding Method Urinal # Voids 1 2 - Labs CBC & Chem 7: 10/01/21 12:57 10/01/21 12:57 Labs: Abnormal Lab Results - Last 24 Hours (Table) 10/01/21 10/01/21 Range/Units 12:57 12:57 Hgb 12.8 L (13.0-17.5) gm/dL BUN 22 H (9-20) mg/dL Glucose 111 H (74-99) mg/dL
[2021-10-02] MEDS ORDERED: AZITHROMYCIN 500 MG in SODIUM CHLORIDE 0.9% 250 ML IVPB SCH (16:00)
[2021-10-02 16:05] LABS: Basophils % (A) 1 %; Eosinophils # (A) 0.6 k/uL (0-0.7); Eosinophils % (A) 10 %; HCT 34.5 % (39.0-53.0); HGB 11.1 gm/dL (13.0-17.5); Lymphocytes # (A) 1.4 k/uL (1.0-4.8); Lymphocytes % (A) 25 %; MCH 29.3 pg (25.0-35.0); MCHC 32.2 g/dL (31.0-37.0); Monocytes # (A) 0.4 k/uL (0-1.0); Monocytes % (A) 6 %; Neutrophils # (A) 3.1 k/uL (1.3-7.7); Neutrophils % (A) 56 %; Platelet Count 183 k/uL (150-450); RBC 3.79 m/uL (4.30-5.90); RDW 12.8 % (11.5-15.5); WBC 5.6 k/uL (3.8-10.6)
[2021-10-02 16:14] LABS: ALT 15 U/L (4-49); AST 26 U/L (17-59); African American GFR (CKD) 88 (>60 ml/min/1.73 sqM); Albumin/Globulin Ratio 1.2; Alkaline Phosphatase 89 U/L (38-126); Anion Gap 5 mmol/L; Blood Urea Nitrogen 25 mg/dL (9-20); Calcium 8.5 mg/dL (8.4-10.2); Carbon Dioxide 27 mmol/L (22-30); Chloride 106 mmol/L (98-107); Globulin 2.6 g/dL; Glucose 93 mg/dL (74-99); Non-African American GFR(CKD) 76 (>60 ml/min/1.73 sqM); Potassium 4.5 mmol/L (3.5-5.1); Sodium 138 mmol/L (137-145); Total Bilirubin 0.4 mg/dL (0.2-1.3); Total Protein 5.6 g/dL (6.3-8.2)
--- NOTE | 2021-10-02 16:38 | P.CNPUL ---
History of Present Illness Consult date: 10/02/21 Requesting physician: Elli Darden Reason for consult: pneumonia, other (Multiple rib fractures) Chief complaint: Weakness cough and fall at home. History of present illness: This is an 89-year-old white male, known history of valvular heart disease, previous TAV our procedure, history of multiple falls, patient had previous hip fracture secondary to fall, history of spinal stenosis, patient was brought into the emergency room because he was feeling weak, and has been experiencing intermittent episodes of cough, no fever no chills. Apparently the patient tripped in the bathroom he fell against the bathtub, and sustained multiple rib fractures, chest x-ray on admission was showing bilateral infiltrates. Patient tested negative for COVID-19 infection, patient was admitted and I was asked to see him on consultation. Apparently the patient had history of bronchogenic carcinoma and had previous radiation treatment that history is rather vague. At any rate the patient had a CT of the chest on this admission and it showed bilateral lower lobe pulmonary infiltrates and atelectasis and a small pericardial effusion which isn't new. X-rays of the ribs showed nondisplaced, mildly displaced fractures of the right lateral fourth and seventh ribs. Clinically however the patient is relatively asymptomatic, when I saw him he had no shortness of breath, he was on room air, and he has occasional cough, no fever no chills no hemoptysis and he even denied chest pain. Review of Systems Constitutional: Patient basically reported generalized weakness otherwise negative. Ears, nose, mouth and throat: Clear. Cardiovascular: Drip. As noted in HPI. Pulmonary: As noted in HPI. Gastrointestinal: Reports as per HPI, Reports nausea, Reports vomiting Genitourinary: Negative Musculoskeletal: Negative Neurological: patient had difficulty with balance. And he had frequent falls in the past. Psychiatric: Negative Endocrine: Negative Hematologic/Lymphatic: Negative Allergic/Immunologic: Negative Past Medical History Past Medical History: CVA/TIA, Osteoarthritis (OA) Additional Past Medical History / Comment(s): HEART MURMUR, CVA RT EYE, SOB chronic back pain History of Any Multi-Drug Resistant Organisms: None Reported Past Surgical History: Appendectomy, Heart Catheterization, Joint Replacement, Orthopedic Surgery, Tonsillectomy Additional Past Surgical History / Comment(s): RT HIP REPLACEMENT,RT KNEE REPLACEMENT, EDISON KNEE ARTHROSCOPY,HAND SURGERY Past Anesthesia/Blood Transfusion Reactions: Motion Sickness Additional Past Anesthesia/Blood Transfusion Reaction / Comment(s): HAS HAD HARD TIME COMING OUT OF ANESTHESIA Past Psychological History: No Psychological Hx Reported Smoking Status: Former smoker Past Alcohol Use History: None Reported Past Drug Use History: None Reported - Past Family History Mother Family Medical History: Respiratory Disorder Additional Family Medical History / Comment(s): Mother from a lung fungal infection at the age of 74 yrs. Father Family Medical History: Respiratory Disorder Additional Family Medical History / Comment(s): Father was a smoker and had work related fume exposure. He had a stomach ulcer. Sister(s) Family Medical History: Cancer Additional Family Medical History / Comment(s): BREAST Brother(s) Family Medical History: Cancer Medications and Allergies Home Medications Medication Instructions Recorded Confirmed Type Aspirin 81 mg PO DAILY 02/25/15 10/01/21 History Atorvastatin [Lipitor] 10 mg PO HS 02/25/15 10/01/21 History Glucosam/Demarcus-Msm1/C/Ralph/Bosw 1 tab PO DAILY 02/25/15 10/01/21 History [Glucosamine-Chondroitin Tablet] Clopidogrel [Plavix] 75 mg PO DAILY 05/08/20 10/01/21 History Cholecalciferol [Vitamin D3 (25 25 mcg PO DAILY 10/01/21 10/01/21 History Mcg = 1000 Iu)] Multivit-Min/FA/Lycopen/Lutein 1 tab PO DAILY 10/01/21 10/01/21 History [Centrum Silver Men Tablet] Rivastigmine 4.6MG/24Hr Patch 1 patch TRANSDERM HS 10/01/21 10/01/21 History [Exelon 4.6MG/24Hr Patch] Allergies Allergy/AdvReac Type Severity Reaction Status Date / Time doxycycline Allergy Swelling Verified 10/01/21 16:17 morphine AdvReac Hallucinati Verified 10/01/21 16:17 ons/Nausea Physical Exam Vitals: Vital Signs Temp Pulse Pulse Resp BP BP BP 10/02/21 14:40 97.8 F 72 17 103/65 96/59 113/64 10/02/21 08:00 97.9 F 72 18 121/67 10/02/21 02:06 97.7 F 76 16 113/60 10/01/21 19:46 97.5 F L 70 17 132/74 10/01/21 19:10 82 17 10/01/21 17:31 98.3 F 82 17 137/83 Pulse Ox 10/02/21 14:40 91 L 10/02/21 08:00 93 L 10/02/21 02:06 92 L 10/01/21 19:46 93 L 10/01/21 19:10 10/01/21 17:31 95 Intake and Output 10/02/21 10/02/21 10/02/21 06:59 14:59 22:59 Intake Total 400 Balance 400 Intake: Oral 400 Other: # Voids 2 Physical Exam revealed 89-year-old white male in no distress. Head: Atraumatic normocephalic. HEENT:[Neck is supple.] [No neck masses.] [No thyromegaly.] [No JVD.] Chest: [Symmetrical chest expansion minimal crackles at the bases no rhonchi and no wheezes Cardiac Exam: [Normal S1 and S2, no S3 gallop, 2/6 systolic murmur throughout the precordium. Abdomen: [Soft, nontender, no megaly, no rebound, no guarding, normal bowel sounds.] Extremities: [No clubbing, no edema, no cyanosis.] Neurological Exam: [No focal neurologic deficit.] Alert oriented 3. Psychiatric: Normal mood affect and normal mental status examination. Skin: No rashes. Results - Laboratory Findings CBC and BMP: 10/02/21 15:40 10/02/21 15:40 Abnormal lab findings: Abnormal Labs 10/01/21 10/01/21 10/02/21 12:57 12:57 15:40 RBC 3.79 L Hgb 12.8 L 11.1 L Hct 34.5 L BUN 22 H Glucose 111 H Total Protein Albumin 10/02/21 15:40 RBC Hgb Hct BUN 25 H Glucose Total Protein 5.6 L Albumin 3.0 L - Diagnostic Findings Chest x-ray: image reviewed (As noted in HPI) CT scan - chest: image reviewed (As noted in HPI) Assessment and Plan Assessment: Impression: Multiple rib fractures secondary to fall. Possible pulmonary contusion secondary to fall although the possibility of aspiration pneumonia is not entirely ruled out. Patient does not volunteer any history to suggest aspiration or loss of consciousness. Patient tested negative for COVID-19 infection. History of valvular heart disease History of peripheral neuropathy History of lung cancer status post radiation , the findings on the chest x-ray could be related to radiation changes. Medical debility. Recommendation: Suggest continue present medications Switch patient to [facility] family services manager to evaluate Suggest placement no need for inpatient hospitalization at this point. Time with Patient: Greater than 30
[2021-10-02] MEDS: ATORVASTATIN 10 MG TAB PO SCH (20:28)
[2021-10-02] MEDS: RIVASTIGMINE 4.6MG/24HR PATCH TRANSDERM SCH (20:28)
[2021-10-02] MEDS: FUROSEMIDE 10 MG/ML 2 ML VIAL IV SCH (20:28)
[2021-10-03] MEDS: CHOLECALCIFEROL 25 MCG (1000 IU) TABLET PO SCH (09:27)
[2021-10-03] MEDS: PANTOPRAZOLE 40 MG/10 ML VIAL IVP SCH (09:27)
[2021-10-03] MEDS: FUROSEMIDE 10 MG/ML 2 ML VIAL IV SCH (09:27)
[2021-10-03] MEDS: CLOPIDOGREL 75 MG TAB PO SCH (09:27)
[2021-10-03] MEDS: ASPIRIN 81 MG PO SCH (09:27)
--- NOTE | 2021-10-03 10:39 | P.PN ---
Subjective Progress Note Date: 10/03/21 Principal diagnosis: Shortness of breath, right chest wall pain, rib fractures This is an 89-year-old white male, known history of valvular heart disease, previous TAV our procedure, history of multiple falls, patient had previous hip fracture secondary to fall, history of spinal stenosis, patient was brought into the emergency room because he was feeling weak, and has been experiencing intermittent episodes of cough, no fever no chills. Apparently the patient tripped in the bathroom he fell against the bathtub, and sustained multiple rib fractures, chest x-ray on admission was showing bilateral infiltrates. Patient tested negative for COVID-19 infection, patient was admitted and I was asked to see him on consultation. Apparently the patient had history of bronchogenic carcinoma and had previous radiation treatment that history is rather vague. At any rate the patient had a CT of the chest on this admission and it showed bilateral lower lobe pulmonary infiltrates and atelectasis and a small pericardial effusion which isn't new. X-rays of the ribs showed nondisplaced, mildly displaced fractures of the right lateral fourth and seventh ribs. Clinically however the patient is relatively asymptomatic, when I saw him he had no shortness of breath, he was on room air, and he has occasional cough, no fever no chills no hemoptysis and he even denied chest pain. On 10/03/2021 patient seen in follow-up on medical surgical floor, he is resting in bed, he states he did not sleep much last night, a bit irritable, but does not appear to be in acute distress, room air pulse ox is 94-96, breathing comfortably, unless he moves or coughs then he has right chest wall pain. Afebrile, blood pressures been stable, no hemoptysis. No fever or chills. CT of the chest without contrast showed bilateral lower lobe pulmonary infiltrates and atelectasis, pulmonary emphysema and borderline aneurysm ascending aorta, his proBNP level was within normal limits of 494, no lower extremity edema appreciated, pro-calcitonin level was negative at 0.05, patient tested negative for COVID-19 RSV, and influenza A and B. Patient does have a history of valvular heart disease status post TAVR, he was placed on IV diuretics 20 mg every 12 hours. He is receiving oral medications in the form of [place] 5 mg every 6 hours and IV Dilaudid for breakthrough pain in addition to Toradol. Patient has been getting up with a walker and one person assistance to the bathroom. He states he was up quite often last night, did not get much sleep. Objective - Vital Signs Vital signs: Vital Signs Temp 97.8 F 10/03/21 06:02 Pulse 66 10/03/21 06:02 Resp 18 10/03/21 06:02 BP 139/88 10/03/21 06:02 Pulse Ox 94 L 10/03/21 06:02 Intake & Output 10/02/21 10/03/21 10/03/21 18:59 06:59 18:59 Intake Total 300 Output Total 1500 Balance -1500 300 Intake: Oral 300 Output: Urine 1500 Other: Voiding Method Urinal # Voids 6 - Exam GENERAL EXAM: Alert, oriented 2, 89-year-old white male, on room air, with pulse ox of 94-96% comfortable in no apparent distress. HEAD: Normocephalic/atraumatic. EYES: Normal reaction of pupils, equal size. Conjunctiva pink, sclera white. NOSE: Clear with pink turbinates. THROAT: No erythema or exudates. NECK: No masses, no JVD, no thyroid enlargement, no adenopathy. CHEST: No chest wall deformity. Symmetrical expansion. LUNGS: Equal air entry with bilateral crackles in bilateral bases CVS: Regular rate and rhythm, normal S1 and S2, no gallops, no murmurs, no rubs ABDOMEN: Soft, nontender. No hepatosplenomegaly, normal bowel sounds, no guarding or rigidity. EXTREMITIES: No clubbing, no edema, no cyanosis, 2+ pulses and upper and lower extremities. MUSCULOSKELETAL: Muscle strength and tone normal. SPINE: No scoliosis or deformity SKIN: No rashes CENTRAL NERVOUS SYSTEM: Alert and oriented -3. No focal deficits, tone is normal in all 4 extremities. PSYCHIATRIC: Alert and oriented -3. Appropriate affect. Intact judgment and insight. - Labs CBC & Chem 7: 10/02/21 15:40 10/02/21 15:40 Labs: Abnormal Lab Results - Last 24 Hours (Table) 10/02/21 10/02/21 Range/Units 15:40 15:40 RBC 3.79 L (4.30-5.90) m/uL Hgb 11.1 L (13.0-17.5) gm/dL Hct 34.5 L (39.0-53.0) % BUN 25 H (9-20) mg/dL Total Protein 5.6 L (6.3-8.2) g/dL Albumin 3.0 L (3.5-5.0) g/dL Assessment and Plan Plan: Assessment: #1. Multiple rib fracture secondary to a fall #2. Possible pulmonary contusion related to fall, and possibility of aspiration pneumonia was not entirely excluded. Pro-calcitonin level was negative making possibility of pneumonia less likely. Patient tested negative for COVID-19 infection, RSV and influenza A and B #3. History of valvular heart disease, status post TAVR #4. History of peripheral neuropathy #5. History of lung cancer status post radiation, and the findings on the chest x-ray could be related to radiation changes #6. Medical debility #7. Former smoker #8. Osteoarthritis Plan: Encourage deep breathing and coughing Maintain pain control Patient can probably transition to oral Lasix Vital signs have been stable follow up labs including BMP today Continue to follow I performed a history & physical examination of the patient and discussed their management with my nurse practitioner, Kira Joseph. I reviewed the nurse practitioner's note and agree with the documented findings and plan of care. Lung sounds are positive for halima crackles throughout the lung price. The findings and the impression was discussed with the patient. I attest to the documentation by the nurse practitioner. Time with Patient: Less than 30
--- NOTE | 2021-10-03 16:28 | P.PN ---
Subjective Progress Note Date: 10/03/21 History of present illness This is an 89-year-old pleasant gentleman patient of Dr. Anderson, with known his tory of valvular heart disease, status post Taver procedure, TIAs, multiple falls, fracture of the hip in the past, and dementia. Spinal stenosis. Patient was seen in emergency room, brought in from family members from home, for which she has fallen down, and was starting to be weak. Patient has been having cough, no fever no chills, also complains of difficulty of swallowing, mainly food. No dysphagia to liquids, or pills. Patient tripped in the bathroom, and fell against the bathtub, injured his right side patient lives with the daughter, no O2 requirements at home, requires walker for community ambulation Jin had an EGD in May 2020, diagnosed with lung cancer, follows with Dr. Gabriel clement radiation therapy only, right side, no chemotherapy and no surgery, in remission per daughter. CODE STATUS UNDECIDED In the emergency room, x-rays shows mildly displaced fracture of the right la teral fourth and seventh rib, also not visible patchy interstitial infiltrates right greater than left, correlate for clubbing pneumonia, patient had 3 mother no vaccines, including the more posterior. I'll did 19 is negative, patient was started on IV antibiotics, patient was seen consultation by Dr. Hensley, for trauma admission, CBC shows hemoglobin of 12.8, WBC count 9.6, creatinine 0.89, with baseline in the 0.80 level. Blood sugars 111, sodium 137 alkaline phosphatase normal, lactic acid is normal 1.6. Quad screen, acuity for influenza AB, RSV, and coronary virus PCR no urinalysis was performed and patient admitted for multifocal pneumonia, IV Rocephin and Zithromax consult with PT OT, and speech, evaluate for aspirations secondary dysphagia 10/02 patient examined bedside complains of significant tenderness involving the right lower chest has been comfortably lying in the bed though. Patient today received intermittent diluted overnight and has a lidocaine patch to help some w ith the pain. He has not experienced any dizziness since he's been on the floor. Orthostatic obtained which is negative daughter Claudia was called who does suggest the patient has been having vertigo for the past few days which is new for him. He does have history of falls 10 years back but has not had any recent falls. CT chest was reviewed suggestive of bilateral lower lobe infiltrate concerning for CHF. COVID, influenza and RSV were negative. ProBNP ordered. CT head was negative for any acute process. Patient denies any dizziness. PTOT evaluation ordered. Swallow evaluation ordered to rule out aspiration. Pro-calcitonin negative unlikely to be a bacterial pneumonia. Lasix initiated 20 IV twice a day. Toradol initially for pain control 10/03 patient examined bedside. Appears tired. He did not sleep much last night. Patient denies to be in acute distress but he does have some right chest wall pain. Vitals were reviewed patient is afebrile pulse 67 respiratory rate 18 blood pressure 124/74 oxygen saturation 94-96% on room air. Labs are reviewed patient's hemoglobin was 11.1 WBC is normal BUN 25 creatinine 0.8 pro- calcitonin 0.05 troponin is normal proBNP is 494 influenza, RSV and COVID was all negative. On Lasix will be dropped from, IV Lasix to 40 by mouth daily. Patient encouraged to use incentive spirometry. Orthostatics are negative. Swallow evaluation is pending. PTOT assessment for possible rehab placement. Pain is controlled on Dilaudid and Toradol. [place] added at 5 mg every 6 hours to help him with pain control ROS Constitutional: Denies chills, Denies fever, Denies lethargy, Denies malaise, Denies poor appetite, Denies weakness, Denies weight loss Eyes: denies decreased vision, denies diplopia, denies discharge, denies pain Ears: deny: decreased hearing Ears, nose, mouth and throat: Denies dental pain, Denies headache, Denies nasal discharge, Denies nose pain Cardiovascular: Denies chest pain, Denies decreased exercise tolerance, Denies edema, Denies high blood pressure, Denies irregular heart beat, Denies palpitations, Denies paroxysmal nocturnal dyspnea, Denies rapid heart beat, Denies shortness of breath Respiratory: Denies congestion, Denies cough, Denies cough with sputum, Denies dyspnea, Denies home oxygen, Denies wheezing or chest pain on taking a deep breath Gastrointestinal: Denies abdominal pain, Denies change in bowel habits, Denies coffee ground emesis, Denies early satiety, Denies excessive gas, Denies h eartburn, Denies hematemesis, Denies hematochezia, Denies loss of appetite, Denies nausea, Denies vomiting Genitourinary: Denies dysuria, Denies flank pain, Denies kidney stones, Denies menorrhagia, Denies urgency, Denies urinary frequency Musculoskeletal: Denies gait dysfunction, Denies limitation of motion, Denies morning stiffness, Denies muscle crampsEndorses chest pain on the right Integumentary: Denies rash, Denies wounds, Denies brittle nails, Denies change in hair/nails, Denies darkening of skin Neurological: Denies balance difficulties, Denies change in speech, Denies double vision, Denies gait dysfunction, Denies loss of vision, Denies motor disturbance, Denies numbness, Denies paralysis, Denies paresthesias, Denies seizures Psychiatric: Denies anxiety, Denies depression Endocrine: Denies excessive sweating, Denies excessive thirst, Denies high blood sugars, Denies palpitations Hematologic/Lymphatic: Denies easy bruising, Denies lymphadenopathy Physical exam - Constitutional General appearance: cooperative, no acute distress, appropriate for age - EENT Eyes: anicteric sclerae, PERRLA, normal appearance ENT: hearing grossly normal - Neck Neck: no lymphadenopathy, normal ROM, no other, no rigidity, no stridor, no thyromegaly - Respiratory Respiratory: bilateral: CTA,tender to palpate in the right lower chest negative: diminished, dullness, rales, rhonchi - Cardiovascular Rhythm: regular Heart sounds: normal: S1, S2 Abnormal Heart Sounds:4/6c murmur, no diastolic murmur, no rub, no S3 Gallop, no S4 Gallop, no click, no other - Gastrointestinal General gastrointestinal: normal bowel sounds, soft and nontender - Integumentary Integumentary: no rash - Neurologic Neurologic: CNII-XII intactNo nystagmus no sensorimotor deficit - Musculoskeletal Musculoskeletal:Gait not assessed strength equal bilaterally - Psychiatric Psychiatric: A&O x's 3, appropriate affect Assessment and plan #Acute hypoxic respiratory failure secondary to CHF exacerbation. Pneumonia ruled out antibiotics discontinued Covid vaccinated, 2 Covid RSV, influenza A and B negative, consult with speech, aspiration precautions, IV Zosyn. Sputum culture if able to obtain, physical therapy, O2 supplementation, proBNP ordered #Possible lung contusion secondary to fall-continue incentive spirometry. Acetone negative. Patient encouraged to take deeper breaths #Multiple rib fractures secondary to fall continue conservative treatment with pain control with [place], Dilaudid and Toradol. Diluted discontinued patient to encourage oral medication of IV #Acute on chronic severe dizziness orthostatics negative. Gabapentin and Aricept discontinued. PT and OT evaluations. We'll consult cardiology if no improvement #valvular heart disease: Post TAVR with severe aortic stenosis much better since his procedure, continue Plavix and aspirin. #severe neuropathy: Not onnarcotics or gabapentin from home, underlying spinal stenosis, nonsurgical, walker for community ambulation check for CPK for rhabdo # lung Ca s/p radiation tx no chemo no surgical resection, check for ct head for vertigo falls nausea, check for lung chest ct, poss oncology/pulomnary consult. follows with outside pulmo dr Lopez #dementia: Mostly Alzheimer type, on the breast significant, started July 2021 by PCP # hyperlipidemia: Remain on atorvastatin 10 mg daily. # BPH: Watch for any urinary retention. # Debility: Consult PT/OT # GI prophylaxis: Patient be on pantoprazole IV. #DVT prophylaxis: Knee-high LUDWIG hose and Venodyne boots. Covid 19 negative CODE STATUS: Full code. Discharge plan: Possible subacute rehab or home PT evaluation Objective - Vital Signs Vital signs: Vital Signs Temp 97.8 F 10/03/21 14:45 Pulse 67 10/03/21 14:45 Resp 18 10/03/21 14:45 BP 124/74 10/03/21 14:45 Pulse Ox 94 L 10/03/21 14:45 Intake & Output 10/02/21 10/03/21 10/03/21 18:59 06:59 18:59 Intake Total 600 Output Total 1500 Balance -1500 600 Intake: Oral 600 Output: Urine 1500 Other: Voiding Method Urinal # Voids 6 - Labs CBC & Chem 7: 10/02/21 15:40 10/02/21 15:40
[2021-10-03] MEDS: ATORVASTATIN 10 MG TAB PO SCH (20:54)
[2021-10-03] MEDS: RIVASTIGMINE 4.6MG/24HR PATCH TRANSDERM SCH (20:54)
[2021-10-04] MEDS ORDERED: FUROSEMIDE 40 MG TAB PO SCH (09:00)
[2021-10-04] MEDS: ASPIRIN 81 MG PO SCH (09:29)
[2021-10-04] MEDS: PANTOPRAZOLE 40 MG TABLET PO SCH (09:29)
[2021-10-04] MEDS: CLOPIDOGREL 75 MG TAB PO SCH (09:29)
[2021-10-04] MEDS: CHOLECALCIFEROL 25 MCG (1000 IU) TABLET PO SCH (09:29)
--- NOTE | 2021-10-04 11:38 | CDI ---
Documentation Clarification Form Date: 10/04/2021 11:23:44 AM From: Nabila Quesada Admit Date: 10/01/2021 03:18:00 PM Patient Name: Albaro Hall Visit Number: [id number] Discharge Date: ATTENTION: The Clinical Documentation Specialists (CDI) and [facility] Coding Staff appreciate your assistance in clarifying documentation. Please respond to the clarification below the line at the bottom and electronically sign. The CDI & [facility] Coding staff will review the response and follow-up if needed. Please note: Queries are made part of the Legal Health Record. If you have any questions, please contact the author of this message via ITS. Dr. Marcelo Pro MD Your patient has the documented diagnosis of unspecified CHF 10/03. Medicine progress note. Additional information regarding the type of CHF is requested. History/Risk Factors: 89-year-old male presents to the ED after a fall and being weak. Medical History: CVA and Heart Murmurs. Clinical Indicators: VS/Pulse OX: B/P 147/72; HR 68; Temp 98.3, RR 18, SpO2 96% ra BNP: 10/02 494 Echocardiogram Results: 04/26/21: EF between 60-65%. Mild mitral annular calcification present. Trace mitral regurgitation. Chest X Ray: 10/01/21 Patchy interstitial infiltrates, right greater left. CT Chest: 10/01 Bilateral lobe pulmonary infiltrates and atelectasis which are increased compared to old exam. Pulmonary emphysema. Small pericardial effusion. Treatment: 10/02 Lasix 20mg IV Q12HR Changed 10/04 Lasix 40mg PO Daily to current. In your professional opinion, can you please clarify the type of CHF if known? [X ] Acute Diastolic Heart Failure (preserved EF) [ ] Acute on Chronic Diastolic Heart Failure (preserved EF) [ ] Other, please specify [ ] Unable to determine (Template Last Revised: November 2020) MTDD
[2021-10-04] MEDS ORDERED: MECLIZINE 12.5 MG TAB PO PRN (17:32)
--- NOTE | 2021-10-04 17:35 | P.PN ---
Subjective Progress Note Date: 10/04/21 History of present illness This is an 89-year-old pleasant gentleman patient of Dr. Anderson, with known his tory of valvular heart disease, status post Taver procedure, TIAs, multiple falls, fracture of the hip in the past, and dementia. Spinal stenosis. Patient was seen in emergency room, brought in from family members from home, for which she has fallen down, and was starting to be weak. Patient has been having cough, no fever no chills, also complains of difficulty of swallowing, mainly food. No dysphagia to liquids, or pills. Patient tripped in the bathroom, and fell against the bathtub, injured his right side patient lives with the daughter, no O2 requirements at home, requires walker for community ambulation Jin had an EGD in May 2020, diagnosed with lung cancer, follows with Dr. Gabriel clement radiation therapy only, right side, no chemotherapy and no surgery, in remission per daughter. CODE STATUS UNDECIDED In the emergency room, x-rays shows mildly displaced fracture of the right la teral fourth and seventh rib, also not visible patchy interstitial infiltrates right greater than left, correlate for clubbing pneumonia, patient had 3 mother no vaccines, including the more posterior. I'll did 19 is negative, patient was started on IV antibiotics, patient was seen consultation by Dr. Hensley, for trauma admission, CBC shows hemoglobin of 12.8, WBC count 9.6, creatinine 0.89, with baseline in the 0.80 level. Blood sugars 111, sodium 137 alkaline phosphatase normal, lactic acid is normal 1.6. Quad screen, acuity for influenza AB, RSV, and coronary virus PCR no urinalysis was performed and patient admitted for multifocal pneumonia, IV Rocephin and Zithromax consult with PT OT, and speech, evaluate for aspirations secondary dysphagia 10/02 patient examined bedside complains of significant tenderness involving the right lower chest has been comfortably lying in the bed though. Patient today received intermittent diluted overnight and has a lidocaine patch to help some w ith the pain. He has not experienced any dizziness since he's been on the floor. Orthostatic obtained which is negative daughter Claudia was called who does suggest the patient has been having vertigo for the past few days which is new for him. He does have history of falls 10 years back but has not had any recent falls. CT chest was reviewed suggestive of bilateral lower lobe infiltrate concerning for CHF. COVID, influenza and RSV were negative. ProBNP ordered. CT head was negative for any acute process. Patient denies any dizziness. PTOT evaluation ordered. Swallow evaluation ordered to rule out aspiration. Pro-calcitonin negative unlikely to be a bacterial pneumonia. Lasix initiated 20 IV twice a day. Toradol initially for pain control 10/03 patient examined bedside. Appears tired. He did not sleep much last night. Patient denies to be in acute distress but he does have some right chest wall pain. Vitals were reviewed patient is afebrile pulse 67 respiratory rate 18 blood pressure 124/74 oxygen saturation 94-96% on room air. Labs are reviewed patient's hemoglobin was 11.1 WBC is normal BUN 25 creatinine 0.8 pro- calcitonin 0.05 troponin is normal proBNP is 494 influenza, RSV and COVID was all negative. On Lasix will be dropped from, IV Lasix to 40 by mouth daily. Patient encouraged to use incentive spirometry. Orthostatics are negative. Swallow evaluation is pending. PTOT assessment for possible rehab placement. Pain is controlled on Dilaudid and Toradol. [place] added at 5 mg every 6 hours to help him with pain control 10/04 patient examined bedside. Patient is significantly dizzy and he walks to the bathroom and has gait instability. He was noted to stumbled in the room multiple times. PT assessment today suggest patient need 24-hour supervision but since daughter works for one night she would not be able to assist in patient's care. Patient is at high risk of fall and would benefit from rehab. Lidocaine patch applied to the right flank to help with patient's pain relief. Patient is noted to be more confused and forgetful per family. He has not been getting any pain medication. We will make Tylenol as scheduled to help patient with pain control ROS Constitutional: Denies chills, Denies fever, Denies lethargy, Denies malaise, Denies poor appetite, Denies weakness, Denies weight loss Eyes: denies decreased vision, denies diplopia, denies discharge, denies pain Ears: deny: decreased hearing Ears, nose, mouth and throat: Denies dental pain, Denies headache, Denies nasal discharge, Denies nose pain Cardiovascular: Denies chest pain, Denies decreased exercise tolerance, Denies edema, Denies high blood pressure, Denies irregular heart beat, Denies palpitations, Denies paroxysmal nocturnal dyspnea, Denies rapid heart beat, Denies shortness of breath Respiratory: Denies congestion, Denies cough, Denies cough with sputum, Denies dyspnea, Denies home oxygen, Denies wheezing or chest pain on taking a deep breath Gastrointestinal: Denies abdominal pain, Denies change in bowel habits, Denies coffee ground emesis, Denies early satiety, Denies excessive gas, Denies heartburn, Denies hematemesis, Denies hematochezia, Denies loss of appetite, Denies nausea, Denies vomiting Genitourinary: Denies dysuria, Denies flank pain, Denies kidney stones, Denies menorrhagia, Denies urgency, Denies urinary frequency Musculoskeletal: Denies gait dysfunction, Denies limitation of motion, Denies morning stiffness, Denies muscle crampsEndorses chest pain on the right Integumentary: Denies rash, Denies wounds, Denies brittle nails, Denies change in hair/nails, Denies darkening of skin Neurological: Denies balance difficulties, Denies change in speech, Denies double vision, Denies gait dysfunction, Denies loss of vision, Denies motor disturbance, Denies numbness, Denies paralysis, Denies paresthesias, Denies seizures increased confusion Psychiatric: Denies anxiety, Denies depression Endocrine: Denies excessive sweating, Denies excessive thirst, Denies high blood sugars, Denies palpitations Hematologic/Lymphatic: Denies easy bruising, Denies lymphadenopathy Physical exam - Constitutional General appearance: cooperative, no acute distress, appropriate for age - EENT Eyes: anicteric sclerae, PERRLA, normal appearance ENT: hearing grossly normal - Neck Neck: no lymphadenopathy, normal ROM, no other, no rigidity, no stridor, no thyromegaly - Respiratory Respiratory: bilateral: CTA,tender to palpate in the right lower chest negative: diminished, dullness, rales, rhonchi - Cardiovascular Rhythm: regular Heart sounds: normal: S1, S2 Abnormal Heart Sounds:4/6c murmur, no diastolic murmur, no rub, no S3 Gallop, no S4 Gallop, no click, no other - Gastrointestinal General gastrointestinal: normal bowel sounds, soft and nontender - Integumentary Integumentary: no rash - Neurologic Neurologic: CNII-XII intactNo nystagmus no sensorimotor deficit - Musculoskeletal Musculoskeletal:Gait not assessed strength equal bilaterally - Psychiatric Psychiatric: A&O x's 3, appropriate affect Assessment and plan #Acute hypoxic respiratory failure secondary to CHF exacerbation. Pneumonia ruled out antibiotics discontinued Covid vaccinated, 2 Covid RSV, influenza A and B negative, consult with speech, aspiration precautions, IV Zosyn. Sputum culture if able to obtain, physical therapy, O2 supplementation speech evaluation with normal speech swallow evaluation no aspiration noted #Possible lung contusion secondary to fall-continue incentive spirometry. Acetone negative. Patient encouraged to take deeper breaths #Multiple rib fractures secondary to fall continue conservative treatment with pain control with [place], Dilaudid and Toradol. Diluted discontinued patient to encourage oral medication of IV #Acute on chronic severe dizziness orthostatics negative. Gabapentin and Aricept discontinued. PT and OT evaluations. We'll consult cardiology if no improvement #valvular heart disease: Post TAVR with severe aortic stenosis much better since his procedure, continue Plavix and aspirin. #severe neuropathy: Not onnarcotics or gabapentin from home, underlying spinal stenosis, nonsurgical, walker for community ambulation check for CPK for rhabdo # lung Ca s/p radiation tx no chemo no surgical resection, check for ct head for vertigo falls nausea, check for lung chest ct, poss oncology/pulomnary consult. follows with outside pulmo dr Lopez #dementia: Mostly Alzheimer type, on the breast significant, started July 2021 by PCP # hyperlipidemia: Remain on atorvastatin 10 mg daily. # BPH: Watch for any urinary retention. # Debility: Consult PT/OT # GI prophylaxis: Patient be on pantoprazole IV. #DVT prophylaxis: Knee-high LUDWIG hose and Venodyne boots. Covid 19 negative CODE STATUS: Full code. Discharge plan: Possible subacute rehab or home PT evaluation Objective - Vital Signs Vital signs: Vital Signs Temp 97.7 F 10/04/21 14:00 Pulse 84 10/04/21 14:00 Resp 15 10/04/21 14:00 BP 135/71 10/04/21 14:00 Pulse Ox 95 10/04/21 14:00 Intake & Output 10/03/21 10/04/21 10/04/21 18:59 06:59 18:59 Intake Total 600 300 Output Total 600 Balance 0 300 Intake: Oral 600 300 Output: Urine 600 Other: Voiding Method Bedside Commode # Voids 5 - Labs CBC & Chem 7: 10/02/21 15:40 10/02/21 15:40
[2021-10-04] MEDS ORDERED: LIDOCAINE 5% PATCH TOPICAL SCH (18:00)
[2021-10-04] MEDS: ACETAMINOPHEN TAB 325 MG TAB PO SCH (18:16)
[2021-10-04] MEDS: ATORVASTATIN 10 MG TAB PO SCH (19:05)
[2021-10-04] MEDS: RIVASTIGMINE 4.6MG/24HR PATCH TRANSDERM SCH (19:06)
[2021-10-05] MEDS: ACETAMINOPHEN TAB 325 MG TAB PO SCH ×3 (00:55→12:04)
[2021-10-05 02:20] VITALS: RESP 16
--- NOTE | 2021-10-05 07:43 | XR ---
EXAMINATION TYPE: XR chest 2V DATE OF EXAM: 10/05/2021 COMPARISON: 10/01/2021 HISTORY: 89-year-old male left shoulder pain TECHNIQUE: PA and lateral views FINDINGS: Heart normal size. Mild elongation/tortuosity of the thoracic aorta. Mild diffuse interstitial change s which may be chronic. Patchy opacity at the right lower lung persists. No pleural effusion. Endovas cular aortic valve replacement. IMPRESSION: COPD and similar patchy airspace disease at the right base.
[2021-10-05] MEDS: ASPIRIN 81 MG PO SCH (08:06)
[2021-10-05] MEDS: CLOPIDOGREL 75 MG TAB PO SCH (08:06)
[2021-10-05] MEDS: PANTOPRAZOLE 40 MG TABLET PO SCH (08:06)
[2021-10-05] MEDS: CHOLECALCIFEROL 25 MCG (1000 IU) TABLET PO SCH (08:06)
--- NOTE | 2021-10-05 14:38 | P.DS ---
Providers Date of admission: 10/01/21 15:18 Attending physician: Elli Darden Consults: 10/01/21 15:19 Consult Physician Routine Consulting Provider: Heriberto Navarrete Consult Reason/Comments: pneumonia Do you want consulting provider notified?: Yes Consult Physician Routine Consulting Provider: Alicja Jimenez Consult Reason/Comments: rib fractures, fall Do you want consulting provider notified?: Yes Primary care physician: [facility] Course: History of present illness This is an 89-year-old pleasant gentleman patient of Dr. Anderson, with known history of valvular heart disease, status post Taver procedure, TIAs, multiple falls, fracture of the hip in the past, and dementia. Spinal stenosis. Patient was seen in emergency room, brought in from family members from home, for which she has fallen down, and was starting to be weak. Patient has been having cough, no fever no chills, also complains of difficulty of swallowing, mainly food. No dysphagia to liquids, or pills. Patient tripped in the bathroom, and fell against the bathtub, injured his right side patient lives with the daughter, no O2 requirements at home, requires walker for community ambulation Hhe had an EGD in May 2020, diagnosed with lung cancer, follows with Dr. Lopez radiation therapy only, right side, no chemotherapy and no surgery, in remission per daughter. CODE STATUS UNDECIDED In the emergency room, x-rays shows mildly displaced fracture of the right lateral fourth and seventh rib, also not visible patchy interstitial infiltrates right greater than left, correlate for clubbing pneumonia, patient had 3 mother no vaccines, including the more posterior. I'll did 19 is negative, patient was started on IV antibiotics, patient was seen consultation by Dr. Hensley, for trauma admission, CBC shows hemoglobin of 12.8, WBC count 9.6, creatinine 0.89, with baseline in the 0.80 level. Blood sugars 111, sodium 137 alkaline phosphatase normal, lactic acid is normal 1.6. Quad screen, acuity for influenz a AB, RSV, and coronary virus PCR no urinalysis was performed and patient admitted for multifocal pneumonia, IV Rocephin and Zithromax consult with PT OT, and speech, evaluate for aspirations secondary dysphagia 10/02 patient examined bedside complains of significant tenderness involving the right lower chest has been comfortably lying in the bed though. Patient today received intermittent diluted overnight and has a lidocaine patch to help some with the pain. He has not experienced any dizziness since he's been on the floor. Orthostatic obtained which is negative daughter Claudia was called who does suggest the patient has been having vertigo for the past few days which is new for him. He does have history of falls 10 years back but has not had any recent falls. CT chest was reviewed suggestive of bilateral lower lobe infiltrate concerning for CHF. COVID, influenza and RSV were negative. ProBNP ordered. CT head was negative for any acute process. Patient denies any dizziness. PTOT evaluation ordered. Swallow evaluation ordered to rule out aspiration. Pro-calcitonin negative unlikely to be a bacterial pneumonia. Lasix initiated 20 IV twice a day. Toradol initially for pain control 10/03 patient examined bedside. Appears tired. He did not sleep much last night. Patient denies to be in acute distress but he does have some right chest wall pain. Vitals were reviewed patient is afebrile pulse 67 respiratory rate 18 blood pressure 124/74 oxygen saturation 94-96% on room air. Labs are reviewed patient's hemoglobin was 11.1 WBC is normal BUN 25 creatinine 0.8 pro- calcitonin 0.05 troponin is normal proBNP is 494 influenza, RSV and COVID was all negative. On Lasix will be dropped from, IV Lasix to 40 by mouth daily. Patient encouraged to use incentive spirometry. Orthostatics are negative. Swallow evaluation is pending. PTOT assessment for possible rehab placement. Pain is controlled on Dilaudid and Toradol. Derby added at 5 mg every 6 hours to help him with pain control 10/04 patient examined bedside. Patient is significantly dizzy and he walks to the bathroom and has gait instability. He was noted to stumbled in the room multiple times. PT assessment today suggest patient need 24-hour supervision but since daughter works for one night she would not be able to assist in patient's care. Patient is at high risk of fall and would benefit from rehab. Lidocaine patch applied to the right flank to help with patient's pain relief. Patient is noted to be more confused and forgetful per family. He has not been getting any pain medication. We will make Tylenol as scheduled to help patient with pain control 10/05 patient examined bedside. He is quite alert answering questions appropriately. He denies any dizziness today. He is able to use walker by himself. PT does suggest 24-hour supervision by daughter is unable to take patient at home due to concerns about his falling. Patient's pain is controlled on lidocaine patch today. Vitals are stable afebrile pulse 73 respiratory rate 16 blood pressure 148/85 oxygenating at 92% on room air labs reviewed hemoglobin 11.1 BUN 25 creatinine 0.8 lactic acid 1.6 and liver enzymes are normal proBNP is 494procalcitonin 0.05 COVID negative on 10/01 Physical exam - Constitutional General appearance: cooperative, no acute distress, appropriate for age - EENT Eyes: anicteric sclerae, PERRLA, normal appearance ENT: hearing grossly normal - Neck Neck: no lymphadenopathy, normal ROM, no other, no rigidity, no stridor, no thyromegaly - Respiratory Respiratory: bilateral: CTA,tender to palpate in the right lower chest negative: diminished, dullness, rales, rhonchi - Cardiovascular Rhythm: regular Heart sounds: normal: S1, S2 Abnormal Heart Sounds:4/6 systolic murmur, no diastolic murmur, no rub, no S3 Gallop, no S4 Gallop, no click, no other - Gastrointestinal General gastrointestinal: normal bowel sounds, soft and nontender - Integumentary Integumentary: no rash - Neurologic Neurologic: CNII-XII intactNo nystagmus no sensorimotor deficit - Musculoskeletal Musculoskeletal:Gait not assessed strength equal bilaterally - Psychiatric Psychiatric: A&O x's 3, appropriate affect Assessment and plan #Acute hypoxic respiratory failure secondary to CHF exacerbation with atypical pneumonitis/atelectasis on CT chest. Pneumonia ruled out antibiotics discontinu ed Covid vaccinated, 2 Covid RSV, influenza A and B negative, consult with speech, aspiration precautions, IV Zosyn. Sputum culture if able to obtain, physical therapy, O2 supplementation speech evaluation with normal speech swallow evaluation no aspiration noted #Possible lung contusion secondary to fall-continue incentive spirometry. Patient encouraged to take deeper breaths #Multiple rib fractures secondary to fall continue conservative treatment patient has not needing any pain medication #Acute on chronic severe dizziness orthostatics negative. Gabapentin and Aricept discontinued. #valvular heart disease: Post TAVR with severe aortic stenosis much better since his procedure, continue Plavix and aspirin. #severe neuropathy: Not onnarcotics or gabapentin from home, underlying spinal stenosis, nonsurgical, walker for community ambulation check for CPK for rhabdo # lung Ca s/p radiation tx no chemo no surgical resection, check for ct head for vertigo falls nausea, check for lung chest ct, poss oncology/pulomnary consult. follows with outside pulmo dr Lopez #dementia: Mostly Alzheimer type, on Exelon patch, started July 2021 by PCP avoid sedating medications # hyperlipidemia: Remain on atorvastatin 10 mg daily. # BPH: Watch for any urinary retention. # Debility: Consult PT/OT # GI prophylaxis: Patient be on pantoprazole IV. #DVT prophylaxis: Knee-high LUDWIG hose and Venodyne boots. Covid 19 negative CODE STATUS: Full code. Discharge plan: Possible subacute rehab Plan - Discharge Summary Discharge Rx Participant: Yes New Discharge Prescriptions: New Lidocaine 5% Patch [Lidoderm 5% Patch] 1 patch TOPICAL DAILY@1800 patch Meclizine [Antivert] 12.5 mg PO QID PRN tab PRN Reason: Vertigo Pantoprazole [Protonix] 40 mg PO AC-BRKFST tab Continue Glucosam/Demarcus-Msm1/C/Ralph/Bosw [Glucosamine-Chondroitin Tablet] 1 tab PO DAILY Aspirin 81 mg PO DAILY Atorvastatin [Lipitor] 10 mg PO HS Clopidogrel [Plavix] 75 mg PO DAILY Multivit-Min/FA/Lycopen/Lutein [Centrum Silver Men Tablet] 1 tab PO DAILY Cholecalciferol [Vitamin D3 (25 Mcg = 1000 Iu)] 25 mcg PO DAILY Rivastigmine 4.6MG/24Hr Patch [Exelon 4.6MG/24Hr Patch] 1 patch TRANSDERM HS Discharge Medication List Aspirin 81 mg PO DAILY 02/25/15 [History] Atorvastatin [Lipitor] 10 mg PO HS 02/25/15 [History] Glucosam/Demarcus-Msm1/C/Ralph/Bosw [Glucosamine-Chondroitin Tablet] 1 tab PO DAILY 02/25/15 [History] Clopidogrel [Plavix] 75 mg PO DAILY 05/08/20 [History] Cholecalciferol [Vitamin D3 (25 Mcg = 1000 Iu)] 25 mcg PO DAILY 10/01/21 [History] Multivit-Min/FA/Lycopen/Lutein [Centrum Silver Men Tablet] 1 tab PO DAILY 10/01/21 [History] Rivastigmine 4.6MG/24Hr Patch [Exelon 4.6MG/24Hr Patch] 1 patch TRANSDERM HS 10/01/21 [History] Lidocaine 5% Patch [Lidoderm 5% Patch] 1 patch TOPICAL DAILY@1800 patch 10/05/21 [Rx] Meclizine [Antivert] 12.5 mg PO QID PRN tab 10/05/21 [Rx] Pantoprazole [Protonix] 40 mg PO AC-BRKFST tab 10/05/21 [Rx] Follow up Appointment(s)/Referral(s): [facility], [NON-STAFF] - As Needed Dino Julien MD [Primary Care Provider] - 1-2 days
[2021-10-05 14:46] VITALS: BP 131/86; PULSE 72; TEMP 97.8
== END 2021-10-05 19:04 | DRG 291 ==
LOC: EC 10:24 → 4SSUR 15:18
PROVIDERS: ADMIT Family Medicine; ATTEND Family Medicine
DX: I50.31 Acute diastolic (congestive) heart failure (principal); J96.01 Acute respiratory failure with hypoxia; S22.41XA Multiple fractures of ribs, right side, initial encounter for closed fracture; C34.90 Malignant neoplasm of unspecified part of unspecified bronchus or lung; I31.3 Pericardial effusion (noninflammatory); J84.9 Interstitial pulmonary disease, unspecified; J98.11 Atelectasis; S27.321A Contusion of lung, unilateral, initial encounter; W01.198A Fall on same level from slipping, tripping and stumbling with subsequent striking against other object, initial encounter; Z91.81 History of falling; Y93.9 Activity, unspecified; Y92.002 Bathroom of unspecified non-institutional (private) residence as the place of occurrence of the external cause; E78.5 Hyperlipidemia, unspecified; E86.0 Dehydration; F02.80 Dementia in other diseases classified elsewhere, unspecified severity, without behavioral disturbance, psychotic disturbance, mood disturbance, and anxiety; G30.9 Alzheimer's disease, unspecified; G62.9 Polyneuropathy, unspecified; I35.0 Nonrheumatic aortic (valve) stenosis; Z95.2 Presence of prosthetic heart valve; M19.90 Unspecified osteoarthritis, unspecified site; M48.00 Spinal stenosis, site unspecified; Z20.822 Contact with and (suspected) exposure to COVID-19; R53.81 Other malaise; Z79.02 Long term (current) use of antithrombotics/antiplatelets; R42 Dizziness and giddiness; R29.6 Repeated falls; Z79.82 Long term (current) use of aspirin; Z79.899 Other long term (current) drug therapy; Z86.73 Personal history of transient ischemic attack (TIA), and cerebral infarction without residual deficits; Z87.81 Personal history of (healed) traumatic fracture; Z87.891 Personal history of nicotine dependence; Z92.3 Personal history of irradiation; Z96.641 Presence of right artificial hip joint; Z96.651 Presence of right artificial knee joint; Z98.890 Other specified postprocedural states; Z82.5 Family history of asthma and other chronic lower respiratory diseases; Z83.79 Family history of other diseases of the digestive system; Z80.3 Family history of malignant neoplasm of breast; Z80.9 Family history of malignant neoplasm, unspecified; Z88.1 Allergy status to other antibiotic agents; Z88.5 Allergy status to narcotic agent
CPT/HCPCS: 36415; 70450; 71046; 71250; 80053; 83605; 83880; 84145; 84484; 85025; 87636; 96372; 96374; 99285

== ENCOUNTER → 2022-01-27 | Outpatient (CLI) | payer MEDICARE ==
--- NOTE | 2022-01-28 07:55 | CA ---
Transthoracic Echo Report Name: Albaro Hall Age: 89 Gender: M : 1930 Exam Date: 01/27/2022 15:00 Exam Location: [facility] Ht (in): 72 Wt (lb): 170 Ordering Physician: Dino Julien MD Attending/Referring Phys: Susie Roman [facility] Customer Solutions Specialist Macie Robertson RDCS Procedure CPT: Indications: I25.118 ATHSCL HEART DISEASE OF [place] ART Cardiac Hx: Technical Quality: Fair Contrast 1: Total Dose (mL): Contrast 2: Total Dose (mL): MEASUREMENTS (Male / Female) Normal Values 2D ECHO LV Diastolic Diameter PLAX 3.8 cm 4.2 - 5.9 / 3.9 - 5.3 cm LV Systolic Diameter PLAX 1.6 cm IVS Diastolic Thickness 1.5 cm 0.6 - 1.0 / 0.6 - 0.9 cm LVPW Diastolic Thickness 1.4 cm 0.6 - 1.0 / 0.6 - 0.9 cm LV Relative Wall Thickness 0.8 LA Volume 77.0 cm 18 - 58 / 22 - 52 cm M-MODE Aortic Root Diameter MM 2.9 cm LA Systolic Diameter MM 5.2 cm LA Ao Ratio MM 1.8 AV Cusp Separation MM 1.4 cm DOPPLER AV Peak Velocity 242.6 cm/s AV Peak Gradient 23.5 mmHg AV Mean Velocity 182.2 cm/s AV Mean Gradient 15.2 mmHg AV Velocity Time Integral 46.5 cm LVOT Peak Velocity 141.2 cm/s LVOT Peak Gradient 8.0 mmHg MV Area PHT 1.8 cm Mitral E Point Velocity 71.1 cm/s Mitral A Point Velocity 123.9 cm/s Mitral E to A Ratio 0.6 MV Deceleration Time 428.5 ms MV E' Velocity 5.9 cm/s Mitral E to MV E' Ratio 12.1 TR Peak Velocity 217.0 cm/s TR Peak Gradient 18.8 mmHg Right Ventricular Systolic Press 23.6 mmHg FINDINGS Left Ventricle Moderately increased septal wall thickness. Left ventricular ejection fraction is estimated at 55-60 %, no obvious regional wall motion abnormalities. Right Ventricle Right ventricle not well visualized. Right Atrium Normal right atrial size. Left Atrium Moderately increased left atrial volume. Mildly increased left atrial area. Mitral Valve Mitral valve thickened. Mitral annular calcification. Mild mitral regurgitation. Aortic Valve Mild aortic stenosis with a peak gradient of 29 mmHg and a mean gradient of 17 mmHg. No aortic regurgitation. Tricuspid Valve Mild tricuspid regurgitation. Pulmonic Valve Structurally normal pulmonic valve. Pericardium Minimal pericardial effusion (normal variant). Aorta Aortic root and proximal ascending aorta not well visualized. CONCLUSIONS #1. Normal left ventricular size and function with an ejection fraction of 55- 60%. #2. Moderate left atrial enlargement. #3. Mitral annular calcification with mild mitral regurgitation. #4. Mild to moderate aortic stenosis. #5. Minimal pericardial effusion Previewed by: Dr. Pao Brady MD (Electronically Signed) Final Date: 28 January 2022 07:54
== END | disposition home or self-care (01) ==
LOC: RADECHMAIN 14:55
PROVIDERS: ATTEND Internal Medicine Geriatric Medicine
DX: I08.0 Rheumatic disorders of both mitral and aortic valves (principal); I31.3 Pericardial effusion (noninflammatory)
CPT/HCPCS: 93306